=== PATIENT | female | born 1945 | race Caucasian/White ===

== ENCOUNTER 2017-05-03 16:58 | Emergency (ER) | payer MEDICARE, OTHER ==
[~2017-05-03] VITALS: Ht 170.2 cm; Wt 74.5 kg
[~2017-05-03 16:58] MED LIST: ACET-2766 PO; ANAS1TAB7 PO; ASPI-973 PO; CALC-140 PO; CARB15DR78 OP; CHOL100043 PO; CLOP75TA3 PO; CRAN300T PO; DIAZ5TAB3 PO; DULO60CA61 PO; ENAL10TA PO; GLUC-120 PO; KEN25CR EXT; LACT1CAP65 PO; METO50TA3 PO; OMEG500C PO; OXYC10TA8 PO; PIRO20CA2 PO; POLY17PO2 PO; RANI150T11 PO; SENN1TAB90 PO; SIMV40TA5 PO; YEAS680T PO; iron PO; stool softner PO
[2017-05-03 17:06] VITALS: BP 102/63; PULSE 80; RESP 16; O2SAT 97
[2017-05-03] MEDS ORDERED: Ondansetron 2 mg/mL 2 mL Inj IVPUSH PRN (17:10)
[2017-05-03] MEDS ORDERED: Iohexol 300 mg/mL 30 mL Inj PO ONE (17:10)
--- NOTE | 2017-05-03 17:11 | ED.REPORT ---
HPI-Abd Pain F 40 and Over Date of Service May 03, 2017 ED Provider: Dr. Kemar Galaviz D.O. The patient is a 72 year old female with a history of NC, breast cancer, diverticulitis/pancreatitis, C.Diff, and a recently diagnosed possible stomach ulcer who presents to the ED accompanied by her with epigastric abdominal pain onset four days ago. The pain is "achy" in nature, with radiation to the periumbilical region and RUQ. Associated symptoms include back pain, abdominal distention, nausea, vomiting, and diarrhea. The patient denies hematemesis, dysuria, urinary frequency, or other symptoms. The patient was seen by her PCP a couple of months ago with similar symptoms and was placed on antibiotics for diverticulitis/pancreatitis. The patient then got C.Diff which resolved approximately three weeks ago. She was then diagnosed with a possible stomach ulcer and is currently undergoing a workup with for this while being treated presumptively with PPIs. Nursing Notes Stated Complaint: STOMACH AND PACK PAIN,STOMACH BLOATING,DRY HEAVES Chief Complaint: Female Abdominal Pain Nursing Notes Reviewed: Yes Allergies: Coded Allergies: procaine (Verified Allergy, Severe, 09/19/09) Uncoded Allergies: NOVACAINE (Allergy, Unknown, 10/28/05) PROCAINE HCL (Generic Allergy) (Allergy, Unknown, Y, 10/28/05) Scheduled ([iron]) 65 MG PO DAILY ([stool softner]) 50 MG PO BID Anastrozole (Anastrozole) 1 Mg Tablet 1 MG PO DAILY Aspirin (Aspirin) 81 Mg Tablet 81 MG PO DAILY Calcium Carbonate/Vitamin D3 (Calcium + Vitamin D Tablet) 1 Each Tablet 1 EACH PO BID Carboxymethylcellulose Sodium (Lubricant Eye Drops) 15 Ml Drops 15 ML OP BID Cholecalciferol (Vitamin D3) (Vitamin D) 1,000 Unit Tablet 2,000 UNIT PO DAILY Clopidogrel Bisulfate (Plavix) 75 Mg Tablet 75 MG PO DAILY Cranberry Extract (Cranberry) 300 Mg Tablet 300 MG PO DAILY Duloxetine (Duloxetine) 60 Mg Capsule. 60 MG PO DAILY Enalapril Maleate (Enalapril Maleate) 10 Mg Tablet 10 MG PO DAILY Gluc 2Kcl/Chondr/Rosa Hy/Hy AC (Glucosamine & Chondroitin Cap) 1 Each Capsule 1 EACH PO DAILY Lactobacillus Acidophilus (Probiotic) 1 Each Capsule 1 EACH PO DAILY Metoprolol Tartrate (Metoprolol Tartrate) 50 Mg Tablet 50 MG PO BID Starke-3 Fatty Acids (Fish Oil) 500 Mg Capsule.dr 1,000 MG PO DAILY Piroxicam (Piroxicam) 20 Mg Capsule 20 MG PO DAILY Sennosides/Docusate Sodium (Senna-Docusate Sodium Tablet) 1 Each Tablet 1 EACH PO DAILY Simvastatin (Simvastatin) 40 Mg Tablet 40 MG PO HS Triamcinolone Acet (Triamcinolone Acetonide Cream) 1 Applic/0.25 Gm Cr 1 APPLIC EXT BID Yeast (Landaverde's Yeast) 680 Mg Tablet 680 MG PO DAILY Scheduled PRN Acetaminophen (Tylenol Arthritis) 650 Mg Tablet.er 650 MG PO DAILY PRN PRN For Pain Diazepam (Diazepam) 5 Mg Tablet 5 MG PO HS PRN PRN For Anxiety Ondansetron ODT (Zofran ODT) 4 Mg Tablet 4 MG PO Q4H PRN PRN For Nausea Polyethylene Glycol 3350 (Polyethylene Glycol 3350) 17 Gm Powd.pack 17 GM PO BID PRN PRN For Constipation Ranitidine (Zantac) 150 Mg Tablet 150 MG PO DAILY PRN PRN allergy oxyCODONE (oxyCODONE) 10 Mg Tablet 10 MG PO Q6H PRN PRN For Pain General Time Seen by MD: 17:10 Chief Complaint Abdominal pain Hx Obtained From: Patient, Spouse Arrived By: Walk-in Sudden in Onset?: No Onset Occurred: 4 days ago Symptom Duration: Since onset Location: : Epigastric Radiation: : RUQ (and Periumbilical) Severity: Current: Moderate Severity: Maximum: Moderate Pertinent Negative: Relieved by nothing Context Related History: Reports: Diverticulosis, Pancreatitis Recent Healthcare: Recent doctor visit Past Medical History Past Medical History Treated 1 cm low grade infiltrating ductal carcinoma of the right breast s/p lumpectomy C. Diff [place] Diverticulitis/Pancreatitis Stomach ulcer Past Surgical History Breast lumpectomy and sentinel lymph node biopsy Cardiac stents x2 Smoking History Unknown if Ever Smoker Social History Other Social History: Ambulatory Status Independent Review of Systems + Abdominal distention Constitutional: Denies: Fever Respiratory: Denies: Non-productive cough, Shortness of breath GI: Reports: Abdominal pain, Diarrhea, Nausea, Vomiting, Denies: Hematemesis Female: Denies: Dysuria, Urinary frequency Musculoskeletal: Reports: Back pain Complete sys rev & neg: except as marked. Physical Exam Physical Exam Notes: Vital Signs Vital Signs (First) Date Time Temp Pulse Resp B/P Pulse Ox O2 Delivery O2 Flow Rate FiO2 05/03/17 17:06 36.8 80 16 102/63 97 Room Air Initial VS: Reviewed Head / Eyes: Atraumatic, Normocephalic ENT: Conjunctiva normal, No scleral icterus Neck: Supple, Full range of motion Skin: Warm, Dry, No cyanosis Neurologic: Alert, Oriented, Nonfocal Psychiatric: Mood/affect normal, Behavior normal, Normal thought content General/Constitutional: Awake, Alert Respiratory / Chest: Breath sounds NL, Breath sounds = bilat, No respiratory distress Cardiovascular: Heart rate NL, Regular rhythm, Heart sounds NL Abdomen: Atraumatic, No guarding, No rebound Tenderness/Guarding/Rebound: Positive: Tender epigastric, Tender periumbilical Bowel Sounds / Distention: Positive: Distention mild Interpretation & Diagnostics URINE DIPSTICK: Bedside Urine Specific [place] * 1.010 Bedside Urine pH * 6 Bedside Urine Leukocyte Esterase * Trace Bedside Urine Nitrite * Negative Bedside Urine Protein * Negative Bedside Urine Glucose * Normal Bedside Urine Ketones * Negative Bedside Urine Urobilinogen * Normal Bedside Urine Bilirubin * Negative Bedside Urine Occult Blood * Negative Urine to Lab * Yes Lab Results Interpretation Result Diagram: 05/03/17 1740 05/03/17 1740 Test 05/03/17 17:40 05/03/17 18:00 White Blood Count 11.1th/mm3 (3.8-10.1) Red Blood Count 4.35mil/mm3 (3.90-5.20) Hemoglobin 11.4g/dL (12.0-15.6) Hematocrit 36.8% (35.0-46.0) Mean Corpuscular Volume 84.6fL (81-100) Mean Corpuscular Hemoglobin 26.2pg (27.0-35.0) Mean Corpuscular Hemoglobin Concent 31.0% (32.0-37.0) Red Cell Distribution Width 13.5% (12.3-15.4) Platelet Count 563bil/L (150-400) Neutrophils (%) (Auto) 65.8% (40-74) Lymphocytes (%) (Auto) 20.8% (14-46) Monocytes (%) (Auto) 11.7% (4-12) Eosinophils (%) (Auto) 1.0% (0-5) Basophils (%) (Auto) 0.5% (0-3) Sodium Level 137mEq/L (134-144) Potassium Level 2.9mEq/L (3.5-5.2) Chloride Level 100mEq/L (97-108) Carbon Dioxide Level 20mmol/L (18-29) Blood Urea Nitrogen 14mg/dL (8-27) Creatinine 1.00mg/dL (0.57-1.00) Estimat Glomerular Filtration Rate 78mL/min (>59) Glucose Level 112mg/dL (60-99) Lactic Acid Level 0.9mmol/L (0.4-2.0) Calcium Level 9.7mg/dL (8.5-10.1) Magnesium Level 1.8mg/dL (1.6-2.6) Total Bilirubin 0.2mg/dL (0.0-1.2) Aspartate Amino Transf (AST/SGOT) 18U/L (0-50) Alanine Aminotransferase (ALT/SGPT) 18U/L (0-32) Alkaline Phosphatase 147U/L (25-165) Troponin T < 0.010ug/L (0.0-0.011) Total Protein 7.9g/dL (6.4-8.4) Albumin 3.6g/dL (3.4-5.0) Lipase 57U/L (13-60) Urine Color Yellow (YELLOW) Urine Appearance Clear (CLEAR,HAZY) Urine pH 7.0 (5.0-8.0) Urine Specific [place] 1.015 (1.003-1.035) Urine Protein 30mg/dL (NEG,TRACE) Urine Glucose (UA) Negativemg/dL (NEGATIVE) Urine Ketones Negativemg/dL (NEGATIVE) Urine Occult Blood Negative (NEGATIVE) Urine Nitrite Negative (NEGATIVE) Urine Bilirubin Negative (NEGATIVE) Urine Urobilinogen Normalmg/dL (NORMAL) Urine Leukocyte Esterase Small (NEGATIVE) Urine RBC 0-2/hpf (0-2) Urine WBC 6-10/hpf (0-5) Urine Epithelial Cells Moderate/hpf (NONE-MOD) Urine Crystals None seen (NONE SEEN) Urine Bacteria None/hpf (NONE-FEW) Urine Hyaline Casts None/lpf (NONE) Urine Granular Casts None seen (NONE SEEN) Urine Waxy Casts None seen (NONE SEEN) Urine Red Blood Cell Casts None seen (NONE SEEN) Urine White Blood Cell Casts None seen (NONE SEEN) Urine Mucus None seen (None Seen) Urine Trichomonas None seen (NONE SEEN) Urine Yeast None (NONE SEEN) Urinalysis Comment None Urine Culture Reflexed Indicated ECG Interpretation ECG Interpretation: Sinus rhythm rate 74 Time: 17:39 Interpreted by: ED physician CT Abd / Pelvis Interpretation IMPRESSION: 1. Fatty infiltration of the liver. 2. 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 A this patient be complaining of mesenteric ischemia. 3. No evidence for inflammation in the region of the stomach kidneys gallbladder or pancreas. No adenopathy or mass. Dictated by: Charbel Hooper M.D. on 05/03/2017 at 19:27 Study type: Abdominal CT IV contrast, Abdom CT oral contrast Interpretation / Wet Read by: Interpret - Radiologist Re-Eval/Medical Decision Med Decision/Clinical Course 72-year-old female with a history of recent diverticulitis, pancreatitis, C. difficile infection, and history of gastric ulcer as well as coronary artery disease with 2 stents presents with epigastric abdominal pain and bloating that has been intermittent over the past week and worsening. 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 I discussed these findings with Dr. Horowitz, our general surgeon who notes that without symptoms of weight loss and pain with eating mesenteric ischemia is not likely the acute or chronic diagnosis. Patient is pain-free after 2 doses of Dilaudid 0.5 mg. I discussed with her the symptoms related to this diagnosis of mesenteric ischemia. I advised that she should likely have a consultation with vascular surgery in follow-up and this could be arranged through her PCP. Her urine was significant for pyuria but without symptoms I hesitated to treat her with antibiotics until the culture returns given her recent C. difficile infection. She will be contacted if this returns positive for infection. Her potassium was low from the vomiting and was replaced. She was feeling much better and was discharged with Zofran and that could be taken for vomiting should this recur. I believe that her elevated white blood cell count could be explained by vomiting or recent C. difficile infection as I do not see evidence of significant infection or SIRS criteria. Patient had a normal formed stool prior to coming to the ER. Source of Hx: Old records Re-Evaluation/Progress #1: Time of Eval: 20:34 Patient Status: Condition improved Re-Evaluation/Progress Note: The patient's pain and nausea have resolved. Discussed with patient lab and CT results with plan for surgery consult. Re-Evaluation/Progress #2: Time of Eval: 21:03 Patient Status: Condition improved Re-Evaluation/Progress Note: Patient has not been losing weight or experiencing pain with eating. Discussed with patient CT and lab results, surgery consult, diagnosis, and plan for discharge. Follow-up and return to the ER instructions given. Patient agrees with plan for care and all questions were addressed. Consultation : Referral / Consult Name: Mikey Horowitz MD Call Returned at: 20:55 Printed Circuit Board Drafter: Agrees with eval, Agrees with plan Note: Recommends neurovascular surgery consult if patient has symptoms of ongoing weight loss or pain with eating. Otherwise recommends discharge with outpatient follow-up. Counseled Regarding: Diagnosis, Lab results, Need for follow-up, When/why to return to ED Discharge & Departure Primary Impression: Epigastric abdominal pain Additional Impressions: Nausea & vomiting Vomiting type: unspecified Vomiting Intractability: non-intractable Qualified Code: R11.2 - Nausea with vomiting, unspecified Hypokalemia SMA stenosis Celiac artery stenosis Disposition: Home Discharge Condition All VS Reviewed: Yes Condition: Improved Patient Instructions: Acute Abdominal Pain (ED) Additional Instructions: Thank you for entrusting us with your care. Your labs were reassuring for any serious illness. Your CT scan showed possible mesenteric ischemia but her symptoms are not consistent with this. There were some abnormalities with your urine analysis and will culture your urine and the results will become available in the next couple of days. Take Zofran as prescribed for nausea. Call your primary care provider on Friday for a follow-up appointment next week. Speak with them about consulting a vascular surgeon. Also call Dr. Jack for a follow-up appointment with gastroenterology and EGD that was discussed previously. Your symptoms could be related to an ulcer. Return to the ER with any new or worsening symptoms. Referrals: Eileen Narvaez PA-C (PCP) Mikey Jack MD Scribe Attestation Portions of this note were transcribed by Dipika Nielson. I, Dr. Galaviz, personally performed the history, physical exam, and medical decision-making; I reviewed and confirmed the accuracy of the information in the transcribed note. Signed by: Jason Pham, 05/03/2017, 23:05 copies to: Eileen Narvaez PA-C; Mikey Jack MD, Gary R DO May 03, 2017 17:10 DIPIKA NIELSON May 03, 2017 17:29
[2017-05-03] MEDS ORDERED: 0.9% Sodium Chloride 1,000 ML IV ONE (17:31)
[2017-05-03] MEDS ORDERED: HYDROmorphone 0.5 mg/0.5 mL iSecure Syringe IVPUSH PRN (17:35)
[2017-05-03 17:53] LABS: BASOPHILS % (AUTO) 0.5 % (0-3); MONOCYTES % (AUTO) 11.7 % (4-12); Mean Corpuscular Hemoglobin 26.2 pg (27.0-35.0); Mean Corpuscular Volume 84.6 fL (81-100); NEUTROPHILS % (AUTO) 65.8 % (40-74); Platelet Count 563 bil/L (150-400)
[2017-05-03 18:19] LABS: TROPONIN T < 0.010 ug/L (0.0-0.011)
[2017-05-03 18:21] LABS: APPEARANCE,URINE CLEAR (CLEAR,HAZY); COLOR,URINE YELLOW (YELLOW)
[2017-05-03 18:22] LABS: OCCULT BLOOD,URINE NEGATIVE (NEGATIVE); UROBILINOGEN,URINE NORMAL (NORMAL)
[2017-05-03 18:25] LABS: Lipase 57 U/L (13-60); Magnesium 1.8 mg/dL (1.6-2.6)
--- NOTE | 2017-05-03 19:42 | DRSVH ---
PROCEDURE: CT ABDOMEN AND PELVIS WITH CONTRAST ([id number]) INDICATIONS: abd pain TECHNIQUE: After the administration of oral and intravenous contrast, 5 mm thick sections acquired from the diap hragms to the symphysis. 5 mm thick coronal and sagittal reformats were performed. For radiation do se reduction, the following was used: automated exposure control, adjustment of mA and/or kV accordi ng to patient size. COMPARISON: [facility], [place], BONE SCAN WHOLE BODY, 01/25/2016, 13:38. [facility], CT, CHEST/ABD/PELVIS W/CON (PNL), 03/18/2014, 9:15. [facility], CT, CT ABD PELVIS W CON, 03/18/2017, 14:01. FINDINGS: Image quality: Excellent. ABDOMEN: Lung bases: Lung bases are clear. Heart size is normal. Solid organs: Liver and spleen are normal in size and enhancement. Diffuse fatty infiltration is pre sent. Gallbladder is within normal limits.. Biliary system is non-dilated. Pancreas enhances kuldeep lly. 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 No adrenal nodules, the mild plump appearan ce of the left adrenal remains unchanged since old CTs.. Kidneys are normal in size and enhancement, without hydronephrosis. Peritoneum and bowel: Stomach, small bowel, and colon loops are normal in caliber and wall thickness . No beba-gastric inflammation is seen. No free fluid or air. Nodes and vessels: No retroperitoneal or mesenteric adenopathy. Aorta and inferior vena cava are no rmal in caliber. Atherosclerotic calcifications are present. Postoperative day very tight stenosis at the origin of the superior mesenteric artery and probably a significant stenosis of the origin of th e celiac. The MISSY is patent. Miscellaneous: No ventral hernias. PELVIS: Genitourinary: Bladder wall thickness is normal. No abnormality of the uterus and ovaries by size. Miscellaneous: No inguinal hernias or adenopathy. Bones: There is sclerotic changes scattered throughout the vertebrae probably degenerative. They're u nchanged since the previous CT. It is more prominent than on the CT of 03/18/14 but thought to be a si milar pattern. In addition bone scannin 2016 was not considered abnormal. No vertebral body compressi on fractures. IMPRESSION: 1. Fatty infiltration of the liver. 2. 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 A this patient be complaining of mesenteric ischemia. 3. No evidence for inflammation in the region of the stomach kidneys gallbladder or pancreas. No maranda opathy or mass. Dictated by: Charbel Hooper M.D. on 05/03/2017 at 19:27 Approved by: Charbel Hooper M.D. on 05/03/2017 at 19:41
[2017-05-03 20:55] VITALS: BP 112/66; PULSE 80; RESP 17; O2SAT 98
[2017-05-03] MEDS ORDERED: Potassium Chloride 20 mEq SR Tablet PO ONE (21:10)
[2017-05-03] MEDS ORDERED: ONDA4TAB9 PO (21:34)
[2017-05-10] MEDS ORDERED: Propofol 10 mg/mL 20 mL Inj ONE (10:58)
--- NOTE | 2017-05-14 15:02 | PATH ---
SURGICAL PATHOLOGY Attending Physician:Jeaneth Saul MD CASE STATUS: Signed Out PATIENT NAME: EARLINE FLAHERTY PID: [id number] : 1945 DATE COLLECTED:05/10/2017 00:00 SPECIMEN: 1: Gastric, Biopsy 2: Gastric, Biopsy CLINICAL HISTORY: 1. GASTRIC ULCER BX 2. RANDOM GASTRIC BX FINAL DIAGNOSIS: 1.GASTRIC ULCER BIOPSY: SUPERFICIAL FRAGMENTS OF ANTRAL MUCOSA WITH ASSOCIATED INFLAMMATORY DEBRIS, BUT NO DEFINITE MUCOSAL ULCERATION NOTED. Immunohistochemistry for Helicobacter pending, to be reported by addendum. Negative for intestinal metaplasia. Negative for dysplasia and malignancy. 2.RANDOM GASTRIC BIOPSIES: MODERATE CHRONIC GASTRITIS INVOLVING ANTRAL MUCOSA AND MILD CHRONIC GASTRITIS INVOLVING FUNDIC MUCOSA. Immunohistochemistry for Helicobacter pending, to be reported by addendum. Negative for intestinal metaplasia. Negative for dysplasia and malignancy. ICD10 K29.70 GROSS DESCRIPTION: The specimen is received in two formalin filled containers labeled with the patient's name. 1). The specimen is sublabeled "gastric ulcer" and consists of a 0.1 x 0.1 x 0.1 CM portion of tissue which is entirely submitted in cassette 1A. 2). The specimen is sublabeled "random gastric" and consists of 3 portions of tissue which aggregate to 0.3 x 0.2 x 0.2 CM. The specimen is entirely submitted in cassette 2A. 05/12/2017 [facility] MICRO DESCRIPTION: See diagnosis. ICD-9 CODES: CPT CODES: 1: 78871, 37005 2: 72298, 49843 PROCEDURE/ADDENDA: Immunohistochemistry SPI Interpretation {Not Entered} Results-Comments 2.GASTRIC BIOPSY: AN IMMUNOSTAIN FOR HELICOBACTER ORGANISMS IS NEGATIVE. This test was developed and its performance characteristics determined by [employer]. It has not been cleared or approved by the U. S. Food and Drug Administration. The FDA has determined that such clearance or approval is not necessary. This test is used for clinical purposes. It should not be regarded as investigational or for research. Electronically Signed Out León Lantigua MD Electronically Signed Out Jorge Juarez MD [facility] [place] [address] Technical component performed at [facility], [address], [place], [address]
== END 2017-05-03 21:44 | disposition home or self-care (01) ==
LOC: SED 16:58
DX: R10.13 Epigastric pain (principal); R11.2 Nausea with vomiting, unspecified; I77.4 Celiac artery compression syndrome; K55.1 Chronic vascular disorders of intestine; E87.6 Hypokalemia; M54.9 Dorsalgia, unspecified; I25.2 Old myocardial infarction; Z95.5 Presence of coronary angioplasty implant and graft; Z79.82 Long term (current) use of aspirin; Z88.8 Allergy status to other drugs, medicaments and biological substances
CPT/HCPCS: 36415; 74177; 80053; 81000; 83605; 83690; 83735; 84484; 85025; 87086; 93005; 96361; 96374; 96375; 99285; J1170; J2405; J7030; Q9967

== ENCOUNTER 2017-05-08 10:42 | Inpatient (IN) | payer MEDICARE, OTHER ==
[~2017-05-08] VITALS: Ht 170.2 cm; Wt 70.0 kg
[2017-05-08] VITALS (8 sets, daily range): BP systolic 97–115; BP diastolic 40–63; PULSE 72–90; RESP 10–16; O2SAT 94–98
[~2017-05-08 10:42] MED LIST changes: +ONDA4TAB9 PO
--- NOTE | 2017-05-08 10:55 | ED.REPORT ---
HPI-Abd Pain F 40 and Over Date of Service May 08, 2017 ED Provider: Dr. Mayer History of Present Illness: appointment this am to schedule upper GI, got sick, vomiting, pain in stomach and back. pain is going down now a 5, was a 7 earlier. having this issue for [address] EKG and a scan on Friday. taking oxycodone for the pain. primary is chi, GI is [facility] Nursing Notes Stated Complaint: EVAL PE/ABDOMINAL PAIN Chief Complaint: Female Abdominal Pain Nursing Notes Reviewed: Yes Allergies: Coded Allergies: procaine (Verified Adverse Reaction, Intermediate, nausea or diarrhea, ) Scheduled Aripiprazole (Aripiprazole) 2 Mg Tablet 2 MG PO DAILY Aspirin (Aspirin) 81 Mg Tablet 81 MG PO DAILY Calcium Carbonate/Vitamin D3 (Calcium + Vitamin D Tablet) 1 Each Tablet 1 EACH PO BID Cholecalciferol (Vitamin D3) (Vitamin D) 1,000 Unit Tablet 2,000 UNIT PO DAILY Clopidogrel Bisulfate (Plavix) 75 Mg Tablet 75 MG PO DAILY Cranberry Extract (Cranberry) 300 Mg Tablet 300 MG PO DAILY Docusate Sodium (Colace) 100 Mg Capsule 200 MG PO HS Duloxetine (Duloxetine) 60 Mg Capsule. 60 MG PO DAILY Enalapril Maleate (Enalapril Maleate) 10 Mg Tablet 5 MG PO DAILY Ferrous Sulfate (Iron) 325 Mg Capsule.er 325 MG PO DAILY Gluc 2Kcl/Chondr/Rosa Hy/Hy AC (Glucosamine & Chondroitin Cap) 1 Each Capsule 1 EACH PO BID Lactobacillus Acidophilus (Probiotic) 1 Each Capsule 1 EACH PO DAILY Metoprolol Tartrate (Metoprolol Tartrate) 50 Mg Tablet 50 MG PO BID Fries-3 Fatty Acids (Fish Oil) 500 Mg Capsule. 1,000 MG PO DAILY Omeprazole (Omeprazole) 20 Mg Capsule. 20 MG PO DAILY Sennosides (Senna) 8.6 Mg Tablet 8.6 MG PO HS Simvastatin (Simvastatin) 40 Mg Tablet 40 MG PO HS Sucralfate (Sucralfate) 1 Gm Tablet 1 GM PO TID Triamcinolone Acet (Triamcinolone Acetonide Cream) 1 Applic/0.25 Gm Cr 1 APPLIC EXT WEEKLY Yeast (Landaverde's Yeast) 680 Mg Tablet 680 MG PO DAILY Scheduled PRN Acetaminophen (Acetaminophen) 500 Mg Capsule 500 MG PO Q6H PRN PRN For Pain Diazepam (Diazepam) 5 Mg Tablet 5 MG PO HS PRN PRN For Anxiety oxyCODONE (oxyCODONE) 10 Mg Tablet 10 MG PO Q6H PRN PRN For Pain General Time Seen by MD: 10:54 Chief Complaint Abdominal pain Hx Obtained From: Patient Arrived By: Walk-in Sudden in Onset?: No Onset Occurred: More than a week ago... (6 months) Symptom Duration: Since onset Location: : Abdomen upper Radiation: : Does not radiate Severity: Current: Pain level 5 out of 10 Severity: Maximum: Pain level 7 out of 10 Recent Healthcare: Recent doctor visit Similar Sx Previous: Yes Past Medical History Past Medical History Treated 1 cm low grade infiltrating ductal carcinoma of the right breast s/p lumpectomy 2010 C. Diff [place] Diverticulitis/Pancreatitis Stomach ulcer Past Surgical History Breast lumpectomy and sentinel lymph node biopsy Cardiac stents x2 Smoking History Former Smoker (quit in 2010), Unknown if Ever Smoker Social History Alcohol Use: Denies alcohol use Drug Use: Denies drug use Other Social History: Occupation lives with 1 story house, 5th wheel trailer 05/08/2017 Ambulatory Status Independent Review of Systems Basic Review of Systems Eyes: Vision NL, No discharge Neurologic: NL mental status, No weakness, No numbness Psychiatric: Normal thought content GI: Reports: Abdominal pain, Nausea, Vomiting Complete sys rev & neg: except as marked. Physical Exam Vital Signs Vital Signs (First) Date Time Temp Pulse Resp B/P Pulse Ox O2 Delivery O2 Flow Rate FiO2 05/08/17 10:47 36.5 72 10 107/56 97 Room Air Initial VS: Reviewed, Vital signs normal Head / Eyes: Atraumatic, Normocephalic, PERRL ENT: Mucous membranes moist, Conjunctiva normal, No scleral icterus Neck: Supple, Non-tender, Full range of motion Lymphatic: No lymphadenopathy Extremities: Vascular intact, Neuro intact, No swelling, No tenderness Skin: Warm, Dry, No cyanosis Neurologic: Alert, Oriented, Nonfocal Psychiatric: Mood/affect normal, Behavior normal, Normal thought content General/Constitutional: Awake, Alert, No acute distress, Well appearing, Well developed, Well hydrated Respiratory / Chest: Atraumatic, Breath sounds NL, Breath sounds = bilat, No respiratory distress Cardiovascular: Heart rate NL, Regular rhythm, Heart sounds NL Abdomen: Atraumatic, Soft Tenderness/Guarding/Rebound: Positive: Tender diffuse Interpretation & Diagnostics Lab Results Interpretation Result Diagram: 05/08/17 1110 05/08/17 1110 Test 05/08/17 11:10 05/08/17 13:00 White Blood Count 17.5th/mm3 (3.8-10.1) Red Blood Count 4.60mil/mm3 (3.90-5.20) Hemoglobin 12.0g/dL (12.0-15.6) Hematocrit 38.9% (35.0-46.0) Mean Corpuscular Volume 84.6fL (81-100) Mean Corpuscular Hemoglobin 26.1pg (27.0-35.0) Mean Corpuscular Hemoglobin Concent 30.8% (32.0-37.0) Red Cell Distribution Width 13.5% (12.3-15.4) Platelet Count 602bil/L (150-400) Neutrophils (%) (Auto) 80.5% (40-74) Lymphocytes (%) (Auto) 10.1% (14-46) Monocytes (%) (Auto) 8.7% (4-12) Eosinophils (%) (Auto) 0.2% (0-5) Basophils (%) (Auto) 0.3% (0-3) Sodium Level 137mEq/L (134-144) Potassium Level 3.3mEq/L (3.5-5.2) Chloride Level 99mEq/L (97-108) Carbon Dioxide Level 24mmol/L (18-29) Blood Urea Nitrogen 12mg/dL (8-27) Creatinine 1.15mg/dL (0.57-1.00) Estimat Glomerular Filtration Rate 66mL/min (>59) Glucose Level 128mg/dL (60-99) Lactic Acid Level 1.0mmol/L (0.4-2.0) Calcium Level 9.8mg/dL (8.5-10.1) Total Bilirubin 0.3mg/dL (0.0-1.2) Aspartate Amino Transf (AST/SGOT) 18U/L (0-50) Alanine Aminotransferase (ALT/SGPT) 18U/L (0-32) Alkaline Phosphatase 143U/L (25-165) Troponin T 0.010ug/L (0.0-0.011) Total Protein 8.2g/dL (6.4-8.4) Albumin 3.7g/dL (3.4-5.0) Lipase 41U/L (13-60) Hold Urine Received (Received) ECG Interpretation ECG Interpretation: Normal Sinus rhtyhm. Rate 71. Time: 11:31 Interpreted by: ED physician Re-Eval/Medical Decision Med Decision/Clinical Course Care of patient turned over to DR. Mayer Source of Hx: Old records Counseled Regarding: Diagnosis, Lab results, Need for admission Discharge & Departure Primary Impression: Nausea & vomiting Vomiting type: unspecified Additional Impression: SMA stenosis Disposition: ADMITTED TO HOSPITAL Discharge Condition All VS Reviewed: Yes Referrals: Eileen Narvaez PA-C (PCP) EDSupervising Provider for APC: Adalberto Mayer MD copies to: Eileen Narvaez PA-C, Sue ARNP May 08, 2017 10:55 Cyrus Pierre May 08, 2017 11:23
[2017-05-08] MEDS ORDERED: HYDROmorphone 0.5 mg/0.5 mL iSecure Syringe IVPUSH PRN (11:35)
[2017-05-08] MEDS ORDERED: Ondansetron 2 mg/mL 2 mL Inj IVPUSH ONE (11:35)
[2017-05-08 11:37] LABS: BASOPHILS % (AUTO) 0.3 % (0-3); EOSINOPHILS % (AUTO) 0.2 % (0-5); MONOCYTES % (AUTO) 8.7 % (4-12); Mean Corpuscular Hemoglobin 26.1 pg (27.0-35.0); Mean Corpuscular Volume 84.6 fL (81-100); NEUTROPHILS % (AUTO) 80.5 % (40-74); Platelet Count 602 bil/L (150-400)
[2017-05-08 11:58] LABS: TROPONIN T 0.01 ug/L (0.0-0.011)
--- NOTE | 2017-05-08 12:53 | DRSVH ---
PROCEDURE: MRA ANGIOGRAM ABDOMEN ([id number]) INDICATIONS: Abd pain, vascular dz on CT TECHNIQUE: Precontrast axial, coronal, and sagittal TruFISP acquired through the abdomen and pelvis. Dynamic co garcía MRA using Care Bolus timing of the abdomen and pelvis during the administration of contrast, wi th 3-dimensional maximum intensity projection (MIP) reformats performed. COMPARISON: [facility], CT, CT ABD PELVIS W CON, 05/03/2017, 19:18. FINDINGS: Image quality: Excellent. 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 High-grade, josr r-complete occlusion of the origin of the superior mesenteric artery is noted. Flow is noted in the c eliac artery the superior mesenteric artery distal to the high grade origin stenoses. The inferior me senteric artery is not identified. Aorta: Aorta is normal in caliber and enhancement. Mild, scattered sclerotic irregularity noted in t he abdominal aorta without measurable stenosis. Renal arteries: Renal arteries all appear patent. Extravascular soft tissues: Visualized solid organs are normal in size on limited pre-contrast image s. Bowel loops are normal in caliber. No free fluid. No retroperitoneal or mesenteric adenopathy b y size criteria. No ventral hernias. Bones: Marrow is normal in overall signal. IMPRESSION: 1. 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 2. 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 Dictated by: Zora Fortune MD, PhD on 05/08/2017 at 12:36 Approved by: Zora Fortune MD, PhD on 05/08/2017 at 12:51
[2017-05-08] MEDS ORDERED: ARIP2TAB11 PO (13:30)
[2017-05-08] MEDS ORDERED: SUCR1TAB PO (13:30)
[2017-05-08] MEDS ORDERED: OMEP20CA11 PO (13:35)
[2017-05-08] MEDS ORDERED: FERR325C PO (13:35)
--- NOTE | 2017-05-08 13:36 | DRSVH ---
PROCEDURE: CT ANGIO CHEST PULMONARY EMBOLISM ([id number]) INDICATIONS: 72 year-old female with shortness of breath and vomiting. TECHNIQUE: After the administration of intravenous contrast, 2 mm thick sections acquired from the pulmonary api shey to the posterior costophrenic angles. 3-dimensional maximum intensity projection (MIP) coronal a nd sagittal reformats were then acquired through the thorax. For radiation dose reduction, the follo wing was used: automated exposure control, adjustment of mA and/or kV according to patient size. COMPARISON: [facility], CT, CT ABD PELVIS W CON, 05/03/2017, 19:18. FINDINGS: Image quality: Excellent. Pulmonary arteries: Pulmonary arteries are normal in size, and demonstrate no intraluminal filling d efects to suggest central pulmonary embolism. Lungs and pleura: There is centrilobular emphysema. Lungs are clear, except for scattered antral med ial pulmonary scarring. No pleural effusions or pneumothorax. Central and peripheral airways are pa tent. Mediastinum: Heart size is normal, without pericardial effusion. No mediastinal or hilar adenopathy . Thoracic aorta is normal in caliber and enhancement. Esophagus is normal in caliber, without hiat al hernia. Bones and chest wall: Patient is status post right breast lumpectomy and axillary lymph node dissect ion. No suspicious bony lesions. Ribs and thoracic spine appear intact throughout. Thyroid gland is normal in size, with 1.7 x 1.0 cm anterior left thyroid hypodense lesion. No axillary or supraclavi cular adenopathy. Abdomen: Visualized upper abdominal solid organs appear normal in the early arterial phase of enhanc ement. 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 IMPRESSION: 1. No evidence for central pulmonary embolism. 2. Background centrilobular emphysema. 3. 1.7 x 1.0 cm anterior left thyroid hypodense lesion. Consider further evaluation with thyroid ultr asound when clinically feasible. 4. 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 Dictated by: Daniel Ro M.D. on 05/08/2017 at 12:23 Approved by: Daniel Ro M.D. on 05/08/2017 at 12:35
[2017-05-08] MEDS ORDERED: ACET500C49 PO (13:43)
[2017-05-08] MEDS ORDERED: SENN-133 PO (13:46)
[2017-05-08] MEDS ORDERED: DOCU-41 PO (13:46)
--- NOTE | 2017-05-08 14:18 | NUR ---
Admit nurse note Admission assessment completed in the ER at pt. bedside. Pt. states her pain is "way down" to 1-2/10 since they gave her pain meds here. She is still slightly sleepy from the ativan but is alert and oriented enough to answer questions appropriately. Allergy verified and sticker placed on nameband. Med history obtained from PCP list and erx, as well as pt report. Pt. c/o n/v x 3 days so that she hasn't kept down her regular meds today. Pt. has hx R breast cancer with lymph node removal. IV and BP cuff are on the Left arm at present. Pt. states she uses a walker for support at home, but has never fallen. She is oriented to room, call fuentes and fall precautions. Advance directives are on file, is noted as DPOA. Pt. states she is dyslexic and would best receive instruction verbally. Report is given to Misty Dennison.
[2017-05-08] MEDS ORDERED: Ondansetron 2 mg/mL 2 mL Inj IVPUSH PRN (14:20)
[2017-05-08] MEDS ORDERED: HYDROmorphone 1 mg/mL Inj IVPUSH PRN (14:40)
[2017-05-08] MEDS ORDERED: 0.9% Sodium Chloride 1,000 ML IV ONE (14:55)
[2017-05-08 15:13] LABS: APPEARANCE,URINE HAZY (CLEAR,HAZY); COLOR,URINE STRAW (YELLOW)
[2017-05-08 15:14] LABS: OCCULT BLOOD,URINE NEGATIVE (NEGATIVE); UROBILINOGEN,URINE NORMAL (NORMAL)
[2017-05-08] MEDS: Lactobacillus Rhamnosus 10 Bil Unit Capsule PO SCH (15:20)
--- NOTE | 2017-05-08 15:50 | PCM.HPMED ---
Subjective Date of Service May 08, 2017 Primary Provider: Admitting Physician: Primary Care Physician: Eileen Narvaez PA-C Attending Physician: Chief Complaint: Abdominal pain, diarrhea, labored breathing History of Present Illness: 71yo FM with hx of breat ca, hemorrhoids, HTN, CAD s/d7dorrsf 16yrs ago, [employer], on DAPT, sent by in GI clinic due to concern for PE. Pt was seen by today for diarrhea, abdominal pain. Pt happened to show dyspnea with labored breathing in the clinic, SpO2 noted 100% on RA. Concern was also for possible mesenteric ischemic based on previous CT result, recommended further GI in the hospital. As per GI , pt had presumed pancreatitis and diverticulitis but beginning of January, Patient was given antibiotics for 12 days for treatment of this. The patient's CT scan of the abdomen and pelvis that was done with contrast on 02/04/2017 shows no evidence of diverticulitis or pancreatitis. The patient's lipase is unknown. Lipase was 128 on 01/24/2017. Patient started having profuse diarrhea 3 weeks ago, was 5-6 times per day, nonbloody. If the patient is nothing by mouth, she still has diarrhea. Patient was positive for C. difficile at that time was given Flagyl for 10 days. As per pt, pt suffered from episode of nausea, vomiting for 6month, once every 3 -4days, pt felt nauseated 15-30min after she took medicine in the morning, pt also is afraid of eating as whatever she ate, made her nauseated, only tolerated Activia, soft diet. pt started taking omeprazole for 3mo, didn't think it helps this problems. Since pt had c.diff cleared, pt has had normal BM 1-2per day, regular, non-bloody, non-mucus. After patient eats, pt experienced diffuse abdominal pain, uncomfortableness, which prevents her from eating heavy , large meals. pt lost over 20lbs used to 178 6moago, now 154lbs.lost 8lbs in the past month. Patient visited ED 5days with similar complaints, CT abd showed critical stenosis of SMA, celiac axis, but labs were unremarkable, pt is in the process of getting appointment with vascular surgeon at [facility]. Patient has been on compliant to DAPT for 16yrs, no recent echo done, only does annual EKG, hasn't had any chest pain for long time. pt stated that today, pt was USOH, went to clinic, had similar episode of nausea , vomiting, which was followed by labored breathing, diaphoresis, but denied any SOB at baseline, cough, sputum, chest pain, MCCORD, orthopnea, PND, no rash, fever, chills, In ED, VS 95/45-107/56, BP usually runs low 100s per pt, HR72, RR14, afebrile, labs showed mild MINH, leukocytosis, lactate normal. CTPE negative for PE, MRA showed same findings of CT previously, critical stenosis in celiac axis, SMA Review of Systems: Pertinent positives as noted in history of present illness. All other systems were reviewed and are negative Allergies Coded Allergies: procaine (Verified Adverse Reaction, Intermediate, nausea or diarrhea, ) Home Medications As per visit 05/08/17 Abilify 2 mg tablet take 1 tablet by oral route every day Aspirin Low Dose 81 mg tablet,delayed release take 1 tablet by oral route every day Calcium 600 + Vit D 1 tablet by mouth 2 times daily Carafate 1 gram tablet take 1 tablet by oral route 3 times every day on an empty stomach 1 hour before meals and at bedtime cranberry extract 200 mg capsule take daily CYMBALTA CAP 60MG TAKE 1 CAPSULE DAILY enalapril maleate 10 mg tablet take 1 Tablet by oral route every day Fish Oil 100 mg-160 mg-1,000 mg capsule glucosamine-chondroitin 500 mg-400 mg capsule iron ER 325 mg (65 mg iron) capsule,extended release take 1 tablet daily metoprolol tartrate 50 mg tablet take 1 tablet by oral route 2 times every day with meals omeprazole 20 mg capsule,delayed release take 1 capsule by oral route every day before a meal oxycodone 10 mg tablet take 1 tablet by oral route every 4 - 6 hours pantoprazole 40 mg tablet,delayed release take 1 tablet by oral route every day Plavix 75 mg tablet take 1 tablet by oral route every day Probiotic 10 billion cell capsule take 1 cap by mouth daily simvastatin 40 mg tablet take 1 tablet by oral route every day in the evening sucralfate 1 gram tablet take 1 tablet by oral route 4 times every day on an empty stomach 1 hour before meals and at bedtime Vitamin D3 2,000 unit tablet take 1 tab by mouth twice daily Zantac 150 mg tablet take 1 tablet by oral route 2 times every day as needed PMH Chronic low back pain Benign hypertension chronic OM of mandible, remote, pt was on iv abx and hyperbaric O2 tx last time in 2006, has been stable w/o any chronic abx, but never cured. Slow transit constipation Iron deficiency anemia due to dietary causes Hyperlipidemia CAD, as above Surgical History 2Cappal tunnel syndrome ovarian cyst removal 2cataract surgery lumpectomy of breast CA in 2010 Family History no hx of CAD Social History Hx Alcohol Use: No Hx Substance Use: No Hx Tobacco Use: Yes (quit after dx of breast CA in 2010) Smoking Status: Former Smoker, Unknown if Ever Smoker Additional Information lives with Exam Vital Signs Vital Sign - Last Date Time Temp Pulse Resp B/P Pulse Ox O2 Delivery O2 Flow Rate FiO2 05/08/17 13:33 73 14 98/40 98 Room Air 05/08/17 10:47 36.5 Exam NAD, comfortably laying down on the bed no JVD, MMM, no LAD RRR, nl s1, s2 no mrg CTAB, no w,c S,ND,NT,normoactive BS+ warm, no edema, pulses 2/2 Lab and Diagnostics Result Diagram: 05/08/17 1110 05/08/17 1110 X-Rays, CTs and MRIs PROCEDURE: CT ANGIO CHEST PULMONARY EMBOLISM ([id number]) INDICATIONS: 72 year-old female with shortness of breath and vomiting. TECHNIQUE: After the administration of intravenous contrast, 2 mm thick sections acquired from the pulmonary apices to the posterior costophrenic angles. 3-dimensional maximum intensity projection (MIP) coronal and sagittal reformats were then acquired through the thorax. For radiation dose reduction, the following was used: automated exposure control, adjustment of mA and/or kV according to patient size. COMPARISON: [facility], CT, CT ABD PELVIS W CON, 05/03/2017, 19:18. FINDINGS: Image quality: Excellent. Pulmonary arteries: Pulmonary arteries are normal in size, and demonstrate no intraluminal filling defects to suggest central pulmonary embolism. Lungs and pleura: There is centrilobular emphysema. Lungs are clear, except for scattered antral medial pulmonary scarring. No pleural effusions or pneumothorax. Central and peripheral airways are patent. Mediastinum: Heart size is normal, without pericardial effusion. No mediastinal or hilar adenopathy. Thoracic aorta is normal in caliber and enhancement. Esophagus is normal in caliber, without hiatal hernia. Bones and chest wall: Patient is status post right breast lumpectomy and axillary lymph node dissection. No suspicious bony lesions. Ribs and thoracic spine appear intact throughout. Thyroid gland is normal in size, with 1.7 x 1.0 cm anterior left thyroid hypodense lesion. No axillary or supraclavicular adenopathy. Abdomen: Visualized upper abdominal solid organs appear normal in the early arterial phase of enhancement. 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 IMPRESSION: 1. No evidence for central pulmonary embolism. 2. Background centrilobular emphysema. 3. 1.7 x 1.0 cm anterior left thyroid hypodense lesion. Consider further evaluation with thyroid ultrasound when clinically feasible. 4. 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 Dictated by: Daniel Ro M.D. on 05/08/2017 at 12:23 Approved by: Daniel Ro M.D. on 05/08/2017 at 12:35 PROCEDURE: MRA ANGIOGRAM ABDOMEN ([id number]) INDICATIONS: Abd pain, vascular dz on CT TECHNIQUE: Precontrast axial, coronal, and sagittal TruFISP acquired through the abdomen and pelvis. Dynamic coronal MRA using Care Bolus timing of the abdomen and pelvis during the administration of contrast, with 3-dimensional maximum intensity projection (MIP) reformats performed. COMPARISON: [facility], CT, CT ABD PELVIS W CON, 05/03/2017, 19:18. FINDINGS: Image quality: Excellent. 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 Flow is noted in the celiac artery the superior mesenteric artery distal to the high grade origin stenoses. The inferior mesenteric artery is not identified. Aorta: Aorta is normal in caliber and enhancement. Mild, scattered sclerotic irregularity noted in the abdominal aorta without measurable stenosis. Renal arteries: Renal arteries all appear patent. Extravascular soft tissues: Visualized solid organs are normal in size on limited pre-contrast images. Bowel loops are normal in caliber. No free fluid. No retroperitoneal or mesenteric adenopathy by size criteria. No ventral hernias. Bones: Marrow is normal in overall signal. IMPRESSION: 1. 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 2. 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 Dictated by: Zora Fortune MD, PhD on 05/08/2017 at 12:36 Approved by: Zora Fortune MD, PhD on 05/08/2017 at 12:51 05/03/2017- ct abdomen pelvis contrast- Probable significant stenosis of the celiac axis and critical stenosis of the SMA, fatty liver. 04/01/2017- c.diff stool neg Ct abdomen pelvis 03/18/2017- 4 thickening of the mid descending colon, pancreatitis, prominent mesenteric lymph nodes which could represent mesenteric adenitis and no change in the throughout the colon spine sclerotic foci. 03/14/2017- amylase 97, lipase 63, fecal fat normal, urinalysis was cloudy 1+ protein, positive for nitrite, calcium oxalate crystals. Urine 5-HIAA was normal at 2.4, TSH 3.2, CBC was normal, except platelet count of 549, stool culture was negative, stool for parasites negative, C. difficile was positive, she will chronic and it was 6, celiac panel was negative, complete metabolic panel was normal except alkaline phosphatase of 136 which is slightly elevated. Creatinine of 1.12 with an E GFR of 49, abdominal u/s 12/23/2016- fatty liver, left kidney cysts office visit 04/07/2017- Pt finished vancomycin 125mg po qid x 14 days. Patient states her bowel movements are more formed currently. Her bowel movements are 5 times per day. Currently, the patient is not taking Protonix due to insurance reasons. Patient does complain of epigastric pain. Patient does have early satiety office visit 05/08/2017-patient complains of nausea and vomiting and epigastric pain. Patient also is bloated. Patient is recently returned from a trip. Patient had a CT abdomen and pelvis that was done on 05/03/2017 at the emergency room which showed results listed above. Patient has been taking oxycodone on without any relief. Patient took omeprazole 20 mg once and without bruit. Patient states that she had heart evaluated at the emergency room with a normal EKG. Pt also complains of sob. Assessment & Plan Acute, active acute on chronic nausea,vomiting, significant wt loss, POA, given CTA/MRA findings: critical stenosis of Celiac axis, SMA, classic sx of food aversion, this is most likely chronic mesenteric ischemia, possibly PUD despite using 20mg daily PPI, possible GI malignancy although EGD in the past unrevealing, no signs of acute ischemia, asymptomatic without eating, lactate is normal. -appreciate , possible EGD, -as per , IR can do vascular intervention, pt can benefit from it sooner than later, appreciate GI input -continue aspirin, plavix given CAD, stenosis -will get stool sample, stool PCR Episode of dyspnea, POA, already resolved, Chest CT unremarkable, SpO2 normal, no signs of cardiac ischemia, likely related to vomiting episode, monitor for now MINH, POA, likely prerenal with dehydration, possible Contrast induced nephropathy from CTA 5days ago, -hydrate 100cc/hr, monitor respiratory status closely, -avoid renal toxins, adjust meds renally Chronic, stable HTN, BP rather running low, will hold all home BP meds, IVF as above CAD s/p 2stents on DAPT, not active, EKG-no ischemic, first trop negative. hx of breast CA, stable dispo:Patient will be admitted with inpatient status with expectation of inpatient therapy for more than 2 midnights diet:NPO now dvt ppx:SCD Full code Time spent 65 minutes Henri Carrasco MD May 08, 2017 14:20
[2017-05-08] MEDS ORDERED: Pantoprazole 4 mg/mL 10 mL Inj IVPUSH ONE (16:35)
[2017-05-08] MEDS: 0.9% Sodium Chloride 1,000 ML IV SCH (17:48)
[2017-05-08] MEDS: Sucralfate 1,000 mg Tablet PO SCH (20:58)
[2017-05-09] VITALS (7 sets, daily range): BP systolic 91–122; BP diastolic 54–71; PULSE 74–87; RESP 16–18; O2SAT 95–99
--- NOTE | 2017-05-09 01:52 | CONS ---
[address] [address] CONSULTATION REPORT PATIENT: EARLINE FLAHERTY : 1945 MR#: [id number] ADMIT: 05/08/2017 JOB ID: [id number] DATE OF SERVICE: REQUESTING PHYSICIAN: . REASON FOR CONSULTATION: Abdominal pain and suspected superior mesenteric artery and celiac artery stenosis. HISTORY OF PRESENTING ILLNESS: The patient is a very pleasant 72-year-old woman with a history of breast cancer who underwent partial mastectomy on right side, as well as a history of coronary artery disease for which she has had two coronary stents placed, who reports that she saw Dr. Jack approximately several months ago with complaints of postprandial abdominal pain. These symptoms initially started about six months ago. Following her visit with Dr. Jack it was recommended she pursue an upper endoscopy, followed by further testing. However, she had family out of state that she wished to visit. She; therefore, deferred to receive further treatment or further evaluation. However, during her visit out of state she states that she became increasingly ill. Her main complaints were abdominal pain primarily postprandial. She also reports 12-15 pound weight loss over the last several months. She was seen in the clinic today by Dr. Jack. However, as she was actively vomiting and complaining of abdominal pain, he recommended she come to the emergency department. It was also recommended she obtain an MRI of the abdominal vessels . She did undergo an MR angiogram which revealed high-grade stenosis of the celiac artery, high-grade complete occlusion of the proximal superior mesenteric artery. She was also short of breath. She underwent a CT angiography to rule out PE, which did not show evidence of PE. Upon formal interview with the patient, she states that she used without any abdominal pain, nausea or vomiting. She denies any recent history of diarrhea. She also denies any history of chronic NSAID use. She reports having had a normal upper endoscopy and colonoscopy within the last 18 months. This was recommended by her previous oncologist as she does have a history of breast cancer. She did state that after her last upper endoscopy she was told that she had findings suggestive of early gastric ulcer. She reports that she does take antacid daily at home. PAST MEDICAL HISTORY: Significant for: 1. History of pancreatitis . 2. Coronary artery disease. 3. Hyperlipidemia. 4. Constipation. 5. Chronic lower back pain. PAST SURGICAL HISTORY: Includes: 1. Lumpectomy of the right breast in 2010. 2. Cataract surgery. 3. Ovarian . 4. Carpal tunnel surgery. FAMILY HISTORY: Noncontributory. SOCIAL HISTORY: alcohol use. report that she had been smoking until 2010 after she was diagnosed with breast cancer. She lives with her . HOME MEDICATIONS: Include: 1. Abilify. 2. Aspirin 81 mg. 3. Calcium 600 mg daily. 4. Carafate 1 g 3 times a day. 5. Cranberry extract. 6. Cymbalta. 7. Enalapril. 8. Fish oil. 9. Glucosamine and chondroitin. 10. Iron extended release 325 once a day. 11. Metoprolol 50 mg twice a day. 12. Omeprazole 20 mg 1 capsule daily. 13. 10 mg q.4-6 h. p.r.n. 14. Pantoprazole 40 mg and Friday. 15. Plavix. 16. Probiotics. 17. Simvastatin. 18. Vitamin D. 19. Zantac. 20. . She reports that she is only taking pantoprazole, omeprazole, Zantac or sucralfate. ALLERGIES: She has allergy to PROCAINE. HOSPITAL MEDICATIONS: Include the followin. Aripiprazole. 2. Aspirin 81 mg. 3. Vitamin D. 4. Plavix 75 mg daily. 5. Pantoprazole 40 mg b.i.d. 6. Colace 200 mg. 7. 8. Senna q. nightly. 9. Lipitor. 10. Carafate. 11. Culturelle 1 capsule. 12. . 13. Valium p.r.n. anxiety. 14. Zofran p.r.n. nausea. 15. Tylenol q.4 h. p.r.n. pain. REVIEW OF SYSTEMS: A 10-point review of systems is negative except as mentioned in the HPI. PHYSICAL EXAMINATION: Temperature is 36.7, her pulse is 76, blood pressure is 107/63, respiratory rate is , saturation is 96% on room air. Generally, she is an alert and oriented female in no apparent distress, who is oriented to person, place and time, answers questions appropriately. HEENT: No pallor. No icterus. Oropharynx is clear. Chest exam: Clear to auscultation bilaterally. Cardiovascular exam: S1, S2 heard. No . Abdomen is soft, nontender, nondistended without hepatosplenomegaly. Extremities with trace edema. LABORATORY DATA: Shows white blood cell count of 7.2, , hemoglobin of 12, hematocrit 30 , MCV of 84.6, platelet count of 602, neutrophil , lymphocytes 10.1. Sodium 137, potassium 3.3, chloride 99, CO2 of 24, of 12, creatinine of 1.15, glucose of 128. Her LFTs are normal . Lactic acid is 1. Imaging tests described above. 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 Would recommend Cardiology consultation to see if she may be amenable to angioplasty versus stenting of the stenotic areas of celiac and superior mesenteric arteries. If, however, she is not a candidate for this, would consider referral to Vascular Surgery in [place]. In the meantime, continuing her current medications. Will recommend an upper endoscopy as she does have postprandial abdominal pain to rule out any evidence of peptic ulcer disease. Thank you for allowing me to participate in the patient's care. If you should have any further questions, please do not hesitate to contact me.
[2017-05-09] MEDS: 0.9% Sodium Chloride 1,000 ML IV SCH ×2 (03:41→11:50)
[2017-05-09 06:09] LABS: BASOPHILS % (AUTO) 0.4 % (0-3); EOSINOPHILS % (AUTO) 0.6 % (0-5); MONOCYTES % (AUTO) 10.4 % (4-12); Mean Corpuscular Hemoglobin 26.5 pg (27.0-35.0); Mean Corpuscular Volume 86.9 fL (81-100); Platelet Count 338 bil/L (150-400)
[2017-05-09] MEDS ORDERED: Pantoprazole 20 mg ER24 Tablet PO SCH (06:30)
[2017-05-09 06:34] LABS: Magnesium 1.9 mg/dL (1.6-2.6); Phosphorus 3.4 mg/dL (2.5-4.9)
[2017-05-09] MEDS ORDERED: Potassium Chloride 20 mEq SR Tablet PO ONE (07:55)
[2017-05-09] MEDS: Pantoprazole 4 mg/mL 10 mL Inj IVPUSH SCH ×2 (08:15→17:05)
[2017-05-09] MEDS: ARIPiprazole 2 mg Tablet PO SCH (08:16)
[2017-05-09] MEDS: Sucralfate 1,000 mg Tablet PO SCH ×3 (08:16→23:37)
[2017-05-09] MEDS: Lactobacillus Rhamnosus 10 Bil Unit Capsule PO SCH (08:16)
--- NOTE | 2017-05-09 14:20 | NUR ---
[facility] signed
--- NOTE | 2017-05-09 14:40 | PCM.PNMED ---
Subjective Date of Service May 09, 2017 Subjective pt denied abdominal pain, still kept in NPO denied n/v, no diarrhea Exam Vital Signs Vital Sign - Last Date Time Temp Pulse Resp B/P Pulse Ox O2 Delivery O2 Flow Rate FiO2 05/09/17 09:57 85 05/09/17 09:44 36.8 18 113/61 99 Room Air Intake and Output 05/08/17 05/08/17 05/09/17 Cumulative From/Thru 15:00 23:00 07:00 05/08/17 10:47 - 05/09/17 06:22 Intake Total 1000 ml 1210 ml 2210 ml Balance 1000 ml 1210 ml 2210 ml IV Total 1000 ml 1210 ml 2210 ml Exam NAD, comfortably laying down on the bed no JVD, MMM, no LAD RRR, nl s1, s2 no mrg CTAB, no w,c S,ND,NT,normoactive BS+ warm, no edema, pulses 2/2 IVs and Medications Medications Reviewed: Medications were reviewed in detail Lab and Diagnostics Result Diagram: 05/09/17 0505 05/09/17 0505 X-Rays, CTs and MRIs PROCEDURE: CT ANGIO CHEST PULMONARY EMBOLISM ([id number]) INDICATIONS: 72 year-old female with shortness of breath and vomiting. TECHNIQUE: After the administration of intravenous contrast, 2 mm thick sections acquired from the pulmonary apices to the posterior costophrenic angles. 3-dimensional maximum intensity projection (MIP) coronal and sagittal reformats were then acquired through the thorax. For radiation dose reduction, the following was used: automated exposure control, adjustment of mA and/or kV according to patient size. COMPARISON: [facility], CT, CT ABD PELVIS W CON, 05/03/2017, 19:18. FINDINGS: Image quality: Excellent. Pulmonary arteries: Pulmonary arteries are normal in size, and demonstrate no intraluminal filling defects to suggest central pulmonary embolism. Lungs and pleura: There is centrilobular emphysema. Lungs are clear, except for scattered antral medial pulmonary scarring. No pleural effusions or pneumothorax. Central and peripheral airways are patent. Mediastinum: Heart size is normal, without pericardial effusion. No mediastinal or hilar adenopathy. Thoracic aorta is normal in caliber and enhancement. Esophagus is normal in caliber, without hiatal hernia. Bones and chest wall: Patient is status post right breast lumpectomy and axillary lymph node dissection. No suspicious bony lesions. Ribs and thoracic spine appear intact throughout. Thyroid gland is normal in size, with 1.7 x 1.0 cm anterior left thyroid hypodense lesion. No axillary or supraclavicular adenopathy. Abdomen: Visualized upper abdominal solid organs appear normal in the early arterial phase of enhancement. 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 IMPRESSION: 1. No evidence for central pulmonary embolism. 2. Background centrilobular emphysema. 3. 1.7 x 1.0 cm anterior left thyroid hypodense lesion. Consider further evaluation with thyroid ultrasound when clinically feasible. 4. 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 Dictated by: Daniel Ro M.D. on 05/08/2017 at 12:23 Approved by: Daniel Ro M.D. on 05/08/2017 at 12:35 PROCEDURE: MRA ANGIOGRAM ABDOMEN ([id number]) INDICATIONS: Abd pain, vascular dz on CT TECHNIQUE: Precontrast axial, coronal, and sagittal TruFISP acquired through the abdomen and pelvis. Dynamic coronal MRA using Care Bolus timing of the abdomen and pelvis during the administration of contrast, with 3-dimensional maximum intensity projection (MIP) reformats performed. COMPARISON: [facility], CT, CT ABD PELVIS W CON, 05/03/2017, 19:18. FINDINGS: Image quality: Excellent. 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 Flow is noted in the celiac artery the superior mesenteric artery distal to the high grade origin stenoses. The inferior mesenteric artery is not identified. Aorta: Aorta is normal in caliber and enhancement. Mild, scattered sclerotic irregularity noted in the abdominal aorta without measurable stenosis. Renal arteries: Renal arteries all appear patent. Extravascular soft tissues: Visualized solid organs are normal in size on limited pre-contrast images. Bowel loops are normal in caliber. No free fluid. No retroperitoneal or mesenteric adenopathy by size criteria. No ventral hernias. Bones: Marrow is normal in overall signal. IMPRESSION: 1. 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 2. 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 Dictated by: Zora Fortune MD, PhD on 05/08/2017 at 12:36 Approved by: Zora Fortune MD, PhD on 05/08/2017 at 12:51 05/03/2017- ct abdomen pelvis contrast- Probable significant stenosis of the celiac axis and critical stenosis of the SMA, fatty liver. 04/01/2017- c.diff stool neg Ct abdomen pelvis 03/18/2017- 4 thickening of the mid descending colon, pancreatitis, prominent mesenteric lymph nodes which could represent mesenteric adenitis and no change in the throughout the colon spine sclerotic foci. 03/14/2017- amylase 97, lipase 63, fecal fat normal, urinalysis was cloudy 1+ protein, positive for nitrite, calcium oxalate crystals. Urine 5-HIAA was normal at 2.4, TSH 3.2, CBC was normal, except platelet count of 549, stool culture was negative, stool for parasites negative, C. difficile was positive, she will chronic and it was 6, celiac panel was negative, complete metabolic panel was normal except alkaline phosphatase of 136 which is slightly elevated. Creatinine of 1.12 with an E GFR of 49, abdominal u/s 12/23/2016- fatty liver, left kidney cysts office visit 04/07/2017- Pt finished vancomycin 125mg po qid x 14 days. Patient states her bowel movements are more formed currently. Her bowel movements are 5 times per day. Currently, the patient is not taking Protonix due to insurance reasons. Patient does complain of epigastric pain. Patient does have early satiety office visit 05/08/2017-patient complains of nausea and vomiting and epigastric pain. Patient also is bloated. Patient is recently returned from a trip. Patient had a CT abdomen and pelvis that was done on 05/03/2017 at the emergency room which showed results listed above. Patient has been taking oxycodone on without any relief. Patient took omeprazole 20 mg once and without bruit. Patient states that she had heart evaluated at the emergency room with a normal EKG. Pt also complains of sob. Assessment & Plan Acute, active acute on chronic nausea,vomiting, significant wt loss, POA, given CTA/MRA findings: critical stenosis of Celiac axis, SMA, classic sx of food aversion, likely due to chronic mesenteric ischemia, possibly PUD despite using 20mg daily PPI, possible GI malignancy although EGD in the past unrevealing, no signs of acute ischemia, asymptomatic without eating, lactate is normal. -appreciate , plan for EGD today. -plan to have mesenteric angiogram/angioplasty by IR on 05/12 2pm, scheduled as an outpt, NPO after MN of 05/11 -continue aspirin, plavix given CAD, stenosis -will get stool sample, stool PCR Episode of dyspnea, POA, already resolved prior to ED, Chest CT unremarkable, SpO2 normal, no signs of cardiac ischemia, likely related to vomiting episode, monitor for now MINH, POA, likely prerenal with dehydration, possible Contrast induced nephropathy from CTA 5days ago, -resolved with IVF NS 100cc/hr, -avoid renal toxins, adjust meds renally Chronic, stable HTN, BP rather running low, held home BB, decrease to [id number] bid given normotension CAD s/p 2stents on DAPT, not active, EKG-no ischemic, first trop negative. hx of breast CA, stable dispo:likely 1-2more days, d/c then return for procedure on 05/14 diet:NPO now, consider small/soft diet after EGD dvt ppx:SCD Full code VTE Mechanical Devices: Intermittant Pneumatic CD Time spent 35min Henri Carrasco MD May 09, 2017 14:40
--- NOTE | 2017-05-09 18:35 | NUR ---
Diet / Pain Pain has resolved. Pt has been NPO. Increased diet this evening to clears. Tolerating clears at this time. Ambulating well independently with steady gait.
--- NOTE | 2017-05-09 22:27 | PCM.PNMED ---
Subjective Date of Service May 09, 2017 Subjective no complaints and tolerating clear liquid diet. Exam Vital Signs Vital Sign - Last Date Time Temp Pulse Resp B/P Pulse Ox O2 Delivery O2 Flow Rate FiO2 05/09/17 20:14 36.6 82 16 104/54 95 Room Air Intake and Output 05/08/17 05/08/17 05/09/17 Cumulative From/Thru 15:00 23:00 07:00 05/08/17 10:47 - 05/09/17 06:22 Intake Total 1000 ml 1210 ml 2210 ml Balance 1000 ml 1210 ml 2210 ml IV Total 1000 ml 1210 ml 2210 ml Exam GEN- no aaparent distress HEENT- no pallor or icterus Resp- clear bilaterally CVS-RRR Abdomen- benign Ext- no edema Lab and Diagnostics Result Diagram: 05/09/17 0505 05/09/17 0505 X-Rays, CTs and MRIs PROCEDURE: CT ANGIO CHEST PULMONARY EMBOLISM ([id number]) INDICATIONS: 72 year-old female with shortness of breath and vomiting. TECHNIQUE: After the administration of intravenous contrast, 2 mm thick sections acquired from the pulmonary apices to the posterior costophrenic angles. 3-dimensional maximum intensity projection (MIP) coronal and sagittal reformats were then acquired through the thorax. For radiation dose reduction, the following was used: automated exposure control, adjustment of mA and/or kV according to patient size. COMPARISON: [facility], CT, CT ABD PELVIS W CON, 05/03/2017, 19:18. FINDINGS: Image quality: Excellent. Pulmonary arteries: Pulmonary arteries are normal in size, and demonstrate no intraluminal filling defects to suggest central pulmonary embolism. Lungs and pleura: There is centrilobular emphysema. Lungs are clear, except for scattered antral medial pulmonary scarring. No pleural effusions or pneumothorax. Central and peripheral airways are patent. Mediastinum: Heart size is normal, without pericardial effusion. No mediastinal or hilar adenopathy. Thoracic aorta is normal in caliber and enhancement. Esophagus is normal in caliber, without hiatal hernia. Bones and chest wall: Patient is status post right breast lumpectomy and axillary lymph node dissection. No suspicious bony lesions. Ribs and thoracic spine appear intact throughout. Thyroid gland is normal in size, with 1.7 x 1.0 cm anterior left thyroid hypodense lesion. No axillary or supraclavicular adenopathy. Abdomen: Visualized upper abdominal solid organs appear normal in the early arterial phase of enhancement. 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 IMPRESSION: 1. No evidence for central pulmonary embolism. 2. Background centrilobular emphysema. 3. 1.7 x 1.0 cm anterior left thyroid hypodense lesion. Consider further evaluation with thyroid ultrasound when clinically feasible. 4. 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 Dictated by: Daniel Ro M.D. on 05/08/2017 at 12:23 Approved by: Daniel Ro M.D. on 05/08/2017 at 12:35 PROCEDURE: MRA ANGIOGRAM ABDOMEN ([id number]) INDICATIONS: Abd pain, vascular dz on CT TECHNIQUE: Precontrast axial, coronal, and sagittal TruFISP acquired through the abdomen and pelvis. Dynamic coronal MRA using Care Bolus timing of the abdomen and pelvis during the administration of contrast, with 3-dimensional maximum intensity projection (MIP) reformats performed. COMPARISON: [facility], CT, CT ABD PELVIS W CON, 05/03/2017, 19:18. FINDINGS: Image quality: Excellent. 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 Flow is noted in the celiac artery the superior mesenteric artery distal to the high grade origin stenoses. The inferior mesenteric artery is not identified. Aorta: Aorta is normal in caliber and enhancement. Mild, scattered sclerotic irregularity noted in the abdominal aorta without measurable stenosis. Renal arteries: Renal arteries all appear patent. Extravascular soft tissues: Visualized solid organs are normal in size on limited pre-contrast images. Bowel loops are normal in caliber. No free fluid. No retroperitoneal or mesenteric adenopathy by size criteria. No ventral hernias. Bones: Marrow is normal in overall signal. IMPRESSION: 1. 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 2. 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 Dictated by: Zora Fortune MD, PhD on 05/08/2017 at 12:36 Approved by: Zora Fortune MD, PhD on 05/08/2017 at 12:51 05/03/2017- ct abdomen pelvis contrast- Probable significant stenosis of the celiac axis and critical stenosis of the SMA, fatty liver. 04/01/2017- c.diff stool neg Ct abdomen pelvis 03/18/2017- 4 thickening of the mid descending colon, pancreatitis, prominent mesenteric lymph nodes which could represent mesenteric adenitis and no change in the throughout the colon spine sclerotic foci. 03/14/2017- amylase 97, lipase 63, fecal fat normal, urinalysis was cloudy 1+ protein, positive for nitrite, calcium oxalate crystals. Urine 5-HIAA was normal at 2.4, TSH 3.2, CBC was normal, except platelet count of 549, stool culture was negative, stool for parasites negative, C. difficile was positive, she will chronic and it was 6, celiac panel was negative, complete metabolic panel was normal except alkaline phosphatase of 136 which is slightly elevated. Creatinine of 1.12 with an E GFR of 49, abdominal u/s 12/23/2016- fatty liver, left kidney cysts office visit 04/07/2017- Pt finished vancomycin 125mg po qid x 14 days. Patient states her bowel movements are more formed currently. Her bowel movements are 5 times per day. Currently, the patient is not taking Protonix due to insurance reasons. Patient does complain of epigastric pain. Patient does have early satiety office visit 05/08/2017-patient complains of nausea and vomiting and epigastric pain. Patient also is bloated. Patient is recently returned from a trip. Patient had a CT abdomen and pelvis that was done on 05/03/2017 at the emergency room which showed results listed above. Patient has been taking oxycodone on without any relief. Patient took omeprazole 20 mg once and without bruit. Patient states that she had heart evaluated at the emergency room with a normal EKG. Pt also complains of sob. Assessment & Plan Post prandial abdominal pain -egd tomorrow to rule out any mucosal pathology if EGD normal then further plans as per primary team regarding further management of celiac and SMA stenosis. VTE Mechanical Devices: Intermittant Pneumatic CD Thomas Winter MD May 09, 2017 22:27
[2017-05-10] VITALS (8 sets, daily range): BP systolic 93–121; BP diastolic 42–72; PULSE 77–89; RESP 14–23; O2SAT 95–100
--- NOTE | 2017-05-10 05:04 | NUR ---
activity pt has denied any pain or nausea this shift. she has been up independently to the bathroom steady on her feet. she states she had 2 loose stools during the day yesterday but denies any BMs this shift. she states she has just been sipping on her clears and tolerating well. pt has been made NPO at 0500 for her procedure today. care continues. Addendum: 05/10/17 at 0526 by RAQUEL ANTHONY RN metoprolol was held last night for low blood pressure. pt was asymptomatic, up walking around. this AM BP is 93/55. she states she is feeling well, no symptoms.
[2017-05-10 05:50] LABS: BASOPHILS % (AUTO) 0.3 % (0-3); EOSINOPHILS % (AUTO) 1.3 % (0-5); MONOCYTES % (AUTO) 8.4 % (4-12); Mean Corpuscular Hemoglobin 26.4 pg (27.0-35.0); Mean Corpuscular Volume 85.4 fL (81-100); Platelet Count 395 bil/L (150-400)
[2017-05-10 06:24] LABS: Magnesium 1.7 mg/dL (1.6-2.6)
[2017-05-10] MEDS: Pantoprazole 4 mg/mL 10 mL Inj IVPUSH SCH ×2 (06:26→16:25)
[2017-05-10] MEDS: Sucralfate 1,000 mg Tablet PO SCH ×2 (08:30→14:30)
[2017-05-10] MEDS: ARIPiprazole 2 mg Tablet PO SCH (08:30)
[2017-05-10] MEDS: Lactobacillus Rhamnosus 10 Bil Unit Capsule PO SCH (08:30)
--- NOTE | 2017-05-10 10:31 | PCM.DIMED ---
Discharge Instructions Date of Service May 10, 2017 Dates of Hospitalization May 08, 2017 at 14:55 Discharge Diagnosis Discharge Diagnosis Chronic mesenteric ischemia Medication Instructions Additional med instructions Please note that your blood regimen Enalapril and Metoprolol briefly held due to persistent low blood pressure Diet Discharge Diet: Other (small, frequent meals) Activity Discharge Activity: No restrictions Call your provider Call your provider for: Excessive diarrhea, Other (severe abdominal pain) Patient Instructions Patient Instructions You were hospitalized with symptoms concerning for mesenteric ischemia from narrowing of your blood vessels in your gut. -Y-o-u- -t-x-u-o-x-q-e-n-t- -h-x-j-h-q-r-o-p-y--,- -w-h-i-c-h- -d-i-d-n--'--t- -x-g-c-e-a-l- -a-n-y- -l-q-v-o-d-e-o-g-y- -o-n- -y-o-u-r- -j-t-i-m-a-c-h- -a-n-d- -j-k-i-i-h-f-g-u-s-.- Please note that we arranged the intervention for your narrowed arteries in your gut, with on Friday, 05/12 at 2pm, scheduled as an outpt. Please DO NOT EAT after midnight of 05/11. Please follow up with your primary doctor in 2weeks Follow-up with PCP in: 2 weeks Henri Carrasco MD May 10, 2017 10:31
--- NOTE | 2017-05-10 12:07 | NUR ---
Social Work: Initial Assessment/Readiness for Discharge D: EMR reviewed. Pt is a 72 y/o female admitted for ABD pain per H&P. ANNA met with pt and spouse at bedside to conduct initial assessment. Pt was alert and oriented x3. SW explained role and wrote phone number on white board. SW confirmed pt has completed DPOA/advanced directive ppw and has provided a copy to the hospital. Pt gave verbal consent to contact her spouse/DPOA, Buck Valdez ([phone]) for discharge planning. Pt's insurance is Medicare and [employer]. Pt's PCP is Eileen Narvaez PA-C. Pt has no hx of or a SNF. Pt does not have LTC insurance or VA benefits. Pt is independent with ADLs. Pt owns a FWW and only uses it to ambulate long distances. Pt does not own or use any other DME. Pt does not drive. Pt is independent at baseline. Pt lives with her spouse in 5th wheel trailer with 4 steps to enter [place]. Pt's spouse confirmed he will provide transport home when pt is medically stable. he will SW does not anticipate any discharge needs at this time but will continue to follow if needs arise. Per MD in AM multi-disciplinary rounds, pt is likely to discharge today if pt is cleared by GI after endoscopy. MD does not anticipate an discharge needs from SW at this time. A: Pt who is independent at baseline P: Pt's spouse confirmed he will provide transport home when pt is medically stable. he will SW does not anticipate any discharge needs at this time but will continue to follow if needs arise. INEZ Patel Addendum: 05/10/17 at 1215 by MALLORIE SALINAS Amended: Links added.
--- NOTE | 2017-05-10 15:22 | NUR ---
Anxious / Ambulation Pt anxious at times to get home and for procedures to be completed. Upper endo scheduled for today has been pushed back several times. Pt irritated about this but understands that this is necessary and that procedures must be performed in order of priority. Pt ambulating with steady gait to bathroom. Denies pain at this time.
--- NOTE | 2017-05-10 16:34 | NUR ---
Missed meds Spoke with MD regarding missed medications r/t NPO status and the changing of Upper endo times throughout the day. Per MD OK to nonadmin htese medications and pt to restart tomorrow. MD aware of missed medications r/t NPO status.
--- NOTE | 2017-05-10 17:54 | NUR ---
To endo Pt leaves to Endo around 1730. RA, SL, NPO X 24hrs. Addendum: 05/10/17 at 1856 by MERRITT GALINDO RN Pt back from Endo. A&OX4 slightly sleepy. Denies nausea at this time. Denies SOB, CP, Pain. MD Carrasco paged regarding plans for DC or not considering Stomach ulcer was found on Upper Endo. Encouraged to meet with Endo MD regarding plan. Waiting for new plan to DC or not.
--- NOTE | 2017-05-10 18:18 | PCM.HPANE ---
Patient Data Surgeon Admitting Provider:Henri Carrasco MD Attending Provider:Henri Carrasco MD Primary Care Physician:Eileen Narvaez PA-C Other Provider: Reason for Visit Abd Pain ABD PAIN Ht/WT & BMI Height (Feet): 5 Height (Inches): 7.00 Weight (Kilograms): 70.000 Body Mass Index 24.00 Allergies Coded Allergies: procaine (Verified Adverse Reaction, Intermediate, nausea or diarrhea, ) Past Anesthesia History Anesthesia History: Denies:: Anesthesia Reactions Diabetes History Hx Diabetes?: No MRSA MRSA: No Medications Hypertension Medication: Yes Home Meds Incl Beta Lázaro: Yes Date Beta Lázaro Taken: May 09, 2017 Time Beta Lázaro Taken: 16:00 Previous Beta Lázaro Dose >24: Dose Not Given, Contraindicated Reported Medications Docusate Sodium (Colace)100 Mg Pvbymto816 Mg PO HS Ref 0 05/08/17 Sennosides (Senna)8.6 Mg Tablet8.6 Mg PO HS 05/08/17 Acetaminophen 500 Mg Ututewr854 Mg PO Q6H PRN For Pain 05/08/17 Omeprazole 20 Mg Capsule.dr20 Mg PO DAILY #90 05/08/17 Ferrous Sulfate (Iron)325 Mg Capsule.er325 Mg PO DAILY 05/08/17 Sucralfate 1 Gm Tablet1 Gm PO TID #120 05/08/17 Aripiprazole 2 Mg Tablet2 Mg PO DAILY #30 05/08/17 oxyCODONE 10 Mg Xpghsp84 Mg PO Q6H PRN For Pain Ref 0 10/24/16 Diazepam 5 Mg Tablet5 Mg PO HS PRN For Anxiety Ref 0 10/24/16 Triamcinolone Acet (Triamcinolone Acetonide Cream)1 Applic/0.25 Gm Cr1 Applic EXT WEEKLY #60 GM Ref 0 10/24/16 Yeast (Landaverde's Yeast)680 Mg Avyris115 Mg PO DAILY 10/24/16 Gluc 2Kcl/Chondr/Rosa Hy/Hy AC (Glucosamine & Chondroitin Cap)1 Each Capsule1 Each PO BID 10/24/16 Five Points-3 Fatty Acids (Fish Oil)500 Mg Capsule.dr1,000 Mg PO DAILY 10/24/16 Lactobacillus Acidophilus (Probiotic)1 Each Capsule1 Each PO DAILY 10/24/16 Duloxetine 60 Mg Capsule.dr60 Mg PO DAILY Ref 0 10/24/16 Cranberry Extract (Cranberry)300 Mg Heuehw108 Mg PO DAILY 10/24/16 Cholecalciferol (Vitamin D3) (Vitamin D)1,000 Unit Tablet2,000 Unit PO DAILY #1 BOTTLE Ref 0 10/24/16 Calcium Carbonate/Vitamin D3 (Calcium + Vitamin D Tablet)1 Each Tablet1 Each PO BID 10/24/16 Simvastatin 40 Mg Zpxqij32 Mg PO HS 30 Days Ref 0 10/24/16 Clopidogrel Bisulfate (Plavix)75 Mg Vfebtn37 Mg PO DAILY 30 Days Ref 0 10/24/16 Aspirin 81 Mg Drzbsp48 Mg PO DAILY Ref 0 10/24/16 Discontinued Reported Medications Metoprolol Tartrate 50 Mg Imbswj26 Mg PO BID 30 Days Ref 0 10/24/16 Enalapril Maleate 10 Mg Tablet5 Mg PO DAILY Ref 0 10/24/16 Polyethylene Glycol 3350 17 Gm Powd.pack17 Gm PO BID PRN For Constipation 12/02/16 Carboxymethylcellulose Sodium (Lubricant Eye Drops)15 Ml Drops15 Ml OP BID 10/24/16 Piroxicam 20 Mg Duoqkqx67 Mg PO DAILY 10/24/16 Sennosides/Docusate Sodium (Senna-Docusate Sodium Tablet)1 Each Tablet1 Each PO DAILY 10/24/16 Ranitidine (Zantac)150 Mg Nngiuu143 Mg PO BID PRN to diminish side effects ofmed 10/24/16 Anastrozole 1 Mg Tablet1 Mg PO DAILY 10/24/16 Acetaminophen (Tylenol Arthritis)650 Mg Tablet.er650 Mg PO DAILY PRN For Pain 10/24/16 [stool softner] No Conflict Check50 Mg PO BID 10/24/16 [iron] No Conflict Check65 Mg PO DAILY 10/24/16 Discontinued Scripts Ondansetron ODT (Zofran ODT)4 Mg Tablet4 Mg PO Q4H PRN For Nausea #14 TABLET Prov:Buck Galaviz DO 05/03/17 History History of ENT Problems?: Yes HEENT History: Positive for:: Cataracts Denies:: Dysphagia Glaucoma Sinus Problem Denture Type: Full- Upper Teeth Condition: Within Normal Limits Hx of Heart Problems?: Yes Cardiovascular History: Positive for:: Cardiac Surgery (stents 2000) Hypertension Denies:: Congestive Heart Failure Other Cardiac History: hyperlipidemia, anemia, CAD Hx of Respiratory Problem?: No Respiratory History: Denies:: Tuberculosis Hx Neurologic Problems?: No Hx of GI Problems?: Yes Gastrointestinal History: Positive for:: Gastrointestinal Bleeding Other GI Pertinent History: slow transit constipation Hx of Problems?: Yes Genitourinary History: Positive for:: Urinary Tract Infection Denies:: HX of Hemodialysis Kidney Stones HX of Peritoneal Dialysis: No Female Hx: Positive for:: Problems with Breasts? (breast ca with lumpectomy/ lymph node removal) Denies:: Currently Endometriosis Pelvic Inflammatory Hx Musculoskeletal Problems?: Yes Musculoskeletal History: Positive for:: Back Injury (chronic low back pain - treats with tylenol) Denies:: Joint Replacement Musculoskeletal Trauma Hx of Psycho/Social Problems?: Yes Psycho Social History: Positive for:: Anxiety Hx Depression Denies:: Bipolar Disorder Suicide Attempt Hx Surgeries?: Yes (L3 back surgery, stent, oopherectomy) Hx Any Other Health Problems?: Yes Other History: Positive for:: Cancer (R breast post radiation and lumptectomy/ lymphectomy) Hospitalization (c-dif, heart attack, ovary burst) Denies:: Thyroid Disease History Blood Transfusions: Positive for:: Accept Blood Products? Denies:: Blood Transfusions Hx Diabetes: No Other Pertinent History: osteomyelitis L lower jaw - treated with hyperbaric chamber Hx Alcohol Use: NoHx Substance Use: No Smoking Status: Former Smoker Unknown if Ever Smoker Stop/Bang Treated for Sleep Apnea?: No Do You Have a CPAP Machine?: No S-Snoring: Do You Snore Loudly: No T-Tired: feel tired, fatigued: No O-Obsered: Observed not breath: No P-Blood Pressure: treated: Yes B- Body Mass Index > 35 kg/m2: No A- Age over 50: Yes N- Neck Large Circumference: No G- Gender Male: No ADRIANA Total Score: 2 Risk Assessment Category Category 1A: Patient has history of documented sleep apnea, and HAS NOT received any narcotic, sedative or anesthesia administration during this stay. Category 1B: Patient has history of documented sleep apnea, and HAS received any narcotic , sedative or anesthesia administration during this stay Category 2: Patient has SUSPECTED Obstructive Sleep Apnea, and HAS received any narcotic , sedative or anesthesia administration during this stay. Category 3: Patient has SUSPECTED Obstructive Sleep Apnea and HAS NOT received narcotic, sedative or anesthesia administration during this stay. Category 4: Outpatient in Procedural Areas with known sleep apnea or who screen positive for High Risk via the STOP/BANG questionnaire. Exam Exam Vital Signs Vital Signs Date Time Temp Pulse Resp B/P Pulse Ox O2 Delivery O2 Flow Rate FiO2 05/10/17 13:46 36.8 84 18 100/50 96 Room Air 05/10/17 10:40 36.7 78 14 117/72 96 Room Air General Appearance: Alert, Oriented X3, Cooperative, No Acute Distress HEENT/AIRWAY: MP 1 Lungs: Clear to Auscultation Heart: Exam Unremarkable Meds/Labs/Diagnostics Labs Test 05/08/17 11:10 05/08/17 13:00 05/08/17 14:49 05/10/17 05:18 Lactic Acid Level 1.0mmol/L (0.4-2.0) Troponin T 0.010ug/L (0.0-0.011) Lipase 41U/L (13-60) Hold Urine Received (Received) Urine Color Straw (YELLOW) Urine Appearance Hazy (CLEAR,HAZY) Urine pH 7.0 (5.0-8.0) Urine Specific [place] 1.010 (1.003-1.035) Urine Protein 30mg/dL (NEG,TRACE) Urine Glucose (UA) Negativemg/dL (NEGATIVE) Urine Ketones Negativemg/dL (NEGATIVE) Urine Occult Blood Negative (NEGATIVE) Urine Nitrite Negative (NEGATIVE) Urine Bilirubin Negative (NEGATIVE) Urine Urobilinogen Normalmg/dL (NORMAL) Urine Leukocyte Esterase Negative (NEGATIVE) Urine RBC 0-2/hpf (0-2) Urine WBC 0-5/hpf (0-5) Urine Epithelial Cells Occasional/hpf (NONE-MOD) Urine Crystals None seen (NONE SEEN) Urine Bacteria Few/hpf (NONE-FEW) Urine Hyaline Casts Occasional/lpf (NONE) Urine Granular Casts None seen (NONE SEEN) Urine Waxy Casts None seen (NONE SEEN) Urine Red Blood Cell Casts None seen (NONE SEEN) Urine White Blood Cell Casts None seen (NONE SEEN) Urine Mucus None seen (None Seen) Urine Trichomonas None seen (NONE SEEN) Urine Yeast None (NONE SEEN) Urinalysis Comment None Urine Culture Reflexed Not indicated White Blood Count 9.5th/mm3 (3.8-10.1) Red Blood Count 4.24mil/mm3 (3.90-5.20) Hemoglobin 11.2g/dL (12.0-15.6) Hematocrit 36.2% (35.0-46.0) Mean Corpuscular Volume 85.4fL (81-100) Mean Corpuscular Hemoglobin 26.4pg (27.0-35.0) Mean Corpuscular Hemoglobin Concent 30.9% (32.0-37.0) Red Cell Distribution Width 13.5% (12.3-15.4) Platelet Count 395bil/L (150-400) Neutrophils (%) (Auto) 70.0% (40-74) Lymphocytes (%) (Auto) 19.7% (14-46) Monocytes (%) (Auto) 8.4% (4-12) Eosinophils (%) (Auto) 1.3% (0-5) Basophils (%) (Auto) 0.3% (0-3) Sodium Level 141mEq/L (134-144) Potassium Level 3.7mEq/L (3.5-5.2) Chloride Level 107mEq/L (97-108) Carbon Dioxide Level 17mmol/L (18-29) Blood Urea Nitrogen 8mg/dL (8-27) Creatinine 0.92mg/dL (0.57-1.00) Estimat Glomerular Filtration Rate 85mL/min (>59) Glucose Level 59mg/dL (60-99) Calcium Level 9.0mg/dL (8.5-10.1) Phosphorus Level 3.0mg/dL (2.5-4.9) Magnesium Level 1.7mg/dL (1.6-2.6) Total Bilirubin 0.2mg/dL (0.0-1.2) Aspartate Amino Transf (AST/SGOT) 22U/L (0-50) Alanine Aminotransferase (ALT/SGPT) 16U/L (0-32) Alkaline Phosphatase 117U/L (25-165) Total Protein 6.8g/dL (6.4-8.4) Albumin 3.0g/dL (3.4-5.0) Plan Impression Patient chart reviewed, patient interviewed and anesthestic plan with risks, benefits, and alternatives discussed, and informed consent obtained. ASA Physical Status: ASA3 Severe Disease Anesthetic Plan: GA Bene/Risks/Altern/Consents: Yes HP Complete Prior to Induction: Yes Taco Pimentel DO May 10, 2017 18:04
--- NOTE | 2017-05-10 18:22 | PCM.ANEP1 ---
Post Anesthesia PACU Phase 1 Assessment Vital Signs Vital Signs Date Time Temp Pulse Resp B/P Pulse Ox O2 Delivery O2 Flow Rate FiO2 05/10/17 18:09 79 23 121/53 100 Room Air 05/10/17 13:46 36.8 84 18 100/50 96 Room Air 05/10/17 10:40 36.7 78 14 117/72 96 Room Air Anesthetic Administered: GA Level of Alertness: Awake, talking PANTOJA's with Equal Strength: Yes Pain: No Pain Scale Score: 7 Nausea or Vomiting: No CV Function & Hydration Stable: Yes Airway Device: Oxygen Delivery: Room Air Lungs: Clear to Auscultation Dermatome Level: Full Sensation PACU Phase 2 Assessment Complications: No Follow up Care: N/A Patient Instructions Provided: N/A Taco Pimentel DO May 10, 2017 18:22
[2017-05-10] MEDS ORDERED: PANT40TA3 PO (19:18)
[2017-05-10] MEDS ORDERED: METO25TA6 PO (19:20)
--- NOTE | 2017-05-10 20:28 | NUR ---
DC Confirmed with MD Reich. to stop all anticoagulants including Aspirin, Plavix, and all NSAIDs. Also confirmed with MD Reich that he will contact Radiologist Friday morning and inform pt of plan for Friday procedure. All discharge instructions reviewed. Prescriptions in hand. All belonging in hand. Pt states that she understands all DC instructions. Leaves via WC with staff to home with . Care discontinues
[2017-05-10] MEDS ORDERED: Propofol 10 mg/mL 20 mL Inj ONE (20:29)
--- NOTE | 2017-05-10 21:43 | ENDO ---
[address] [address] ENDOSCOPY PROCEDURE PATIENT: EARLINE FLAHERTY : 1945 MR#: [id number] ADMIT: 05/08/2017 JOB ID: [id number] DATE: 05/10/2017 PROCEDURE: Esophagogastroduodenoscopy. INDICATION: Abdominal pain. Patient with a history of celiac and superior mesenteric artery stenosis who has been having postprandial abdominal pain. EGD is being performed today to rule out peptic ulcer disease. ANESTHESIA: Please see Dr. Pimentel's anesthesia report for details regarding ASA classification, Mallampati score, and medications. INSTRUMENT USED: [id number] PROCEDURE DETAILS: After informed consent was obtained, the patient was brought to the GI suite, where she was placed on oxygen via nasal cannula and monitored with continuous pulse oximeter, telemetry, and blood pressure monitoring. A time-out was performed. Then, she was placed in a left lateral decubitus position and medications were administered for sedation. A bite block was placed. The standard EGD scope was inserted through the bite block and advanced under direct visualization to second portion of duodenum without difficulty. FINDINGS: 1. Normal-appearing duodenal bulb, first and second portion. 2. Normal-appearing pylorus. In the antrum, body and fundus of the stomach, the mucosa had scattered pale appearance suggestive of possibly ischemia. In between the scattered areas there was pink and normal-appearing mucosa. 3. In the in the distal part of the gastric body, there was an approximately 8 mm ulcer. The ulcer did not have well-demarcated margins. The ulcer base was not actively bleeding. There was no adherent clot or visible vessel noted. The ulcer was quite shallow itself. Multiple biopsies were obtained from the ulcer. 4. The scope was then withdrawn back to the GE junction which appeared normal at 40 cm. 5. Normal-appearing esophagus. IMPRESSION: 1. Approximately 8 mm to 9 mm ulcer in the gastric body. 2. Scattered pale mucosa throughout the entire portions of the antrum, body and fundus of the stomach suggestive of possible ischemia. RECOMMENDATIONS: 1. PPI . 2. Keep appointment with Interventional Radiology for possible treatment of celiac stenosis and superior mesenteric artery stenosis. 3. Avoid NSAIDs if able. 4. PPI . COMPLICATIONS: None. ESTIMATED BLOOD LOSS: Less than 5 mL.
--- NOTE | 2017-05-11 11:10 | PCM.DC.MED ---
Discharge Summary Date of Service May 10, 2017 Dates of Hospitalization Date of Hospital Admission May 08, 2017 at 14:55 Date of Discharge: May 10, 2017 Providers: Admitting Physician: Henri Begum MD Primary Care Physician: Eileen Narvaez PA-C Attending Physician: Henri Begum MD Diagnosis at Time of Discharge Diagnosis at Time of Discharge Acute dx Chronic mesenteric ischemia Peptic ulcer disease AKII, prerenal and/or contrast-induced nephropathy Chronic dx HTN, CAD s/p 2stents on DAPT, hx of breast CA Consultations Gastroenterology Procedures XRay, CTs & MRIs PROCEDURE: CT ANGIO CHEST PULMONARY EMBOLISM ([id number]) INDICATIONS: 72 year-old female with shortness of breath and vomiting. TECHNIQUE: After the administration of intravenous contrast, 2 mm thick sections acquired from the pulmonary apices to the posterior costophrenic angles. 3-dimensional maximum intensity projection (MIP) coronal and sagittal reformats were then acquired through the thorax. For radiation dose reduction, the following was used: automated exposure control, adjustment of mA and/or kV according to patient size. COMPARISON: [facility], CT, CT ABD PELVIS W CON, 05/03/2017, 19:18. FINDINGS: Image quality: Excellent. Pulmonary arteries: Pulmonary arteries are normal in size, and demonstrate no intraluminal filling defects to suggest central pulmonary embolism. Lungs and pleura: There is centrilobular emphysema. Lungs are clear, except for scattered antral medial pulmonary scarring. No pleural effusions or pneumothorax. Central and peripheral airways are patent. Mediastinum: Heart size is normal, without pericardial effusion. No mediastinal or hilar adenopathy. Thoracic aorta is normal in caliber and enhancement. Esophagus is normal in caliber, without hiatal hernia. Bones and chest wall: Patient is status post right breast lumpectomy and axillary lymph node dissection. No suspicious bony lesions. Ribs and thoracic spine appear intact throughout. Thyroid gland is normal in size, with 1.7 x 1.0 cm anterior left thyroid hypodense lesion. No axillary or supraclavicular adenopathy. Abdomen: Visualized upper abdominal solid organs appear normal in the early arterial phase of enhancement. 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 IMPRESSION: 1. No evidence for central pulmonary embolism. 2. Background centrilobular emphysema. 3. 1.7 x 1.0 cm anterior left thyroid hypodense lesion. Consider further evaluation with thyroid ultrasound when clinically feasible. 4. 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 Dictated by: Daniel Ro M.D. on 05/08/2017 at 12:23 Approved by: Daniel Ro M.D. on 05/08/2017 at 12:35 PROCEDURE: MRA ANGIOGRAM ABDOMEN ([id number]) INDICATIONS: Abd pain, vascular dz on CT TECHNIQUE: Precontrast axial, coronal, and sagittal TruFISP acquired through the abdomen and pelvis. Dynamic coronal MRA using Care Bolus timing of the abdomen and pelvis during the administration of contrast, with 3-dimensional maximum intensity projection (MIP) reformats performed. COMPARISON: [facility], CT, CT ABD PELVIS W CON, 05/03/2017, 19:18. FINDINGS: Image quality: Excellent. 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 Flow is noted in the celiac artery the superior mesenteric artery distal to the high grade origin stenoses. The inferior mesenteric artery is not identified. Aorta: Aorta is normal in caliber and enhancement. Mild, scattered sclerotic irregularity noted in the abdominal aorta without measurable stenosis. Renal arteries: Renal arteries all appear patent. Extravascular soft tissues: Visualized solid organs are normal in size on limited pre-contrast images. Bowel loops are normal in caliber. No free fluid. No retroperitoneal or mesenteric adenopathy by size criteria. No ventral hernias. Bones: Marrow is normal in overall signal. IMPRESSION: 1. 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 2. 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 Dictated by: Zora Fortune MD, PhD on 05/08/2017 at 12:36 Approved by: Zora Fortune MD, PhD on 05/08/2017 at 12:51 05/03/2017- ct abdomen pelvis contrast- Probable significant stenosis of the celiac axis and critical stenosis of the SMA, fatty liver. 04/01/2017- c.diff stool neg Ct abdomen pelvis 03/18/2017- 4 thickening of the mid descending colon, pancreatitis, prominent mesenteric lymph nodes which could represent mesenteric adenitis and no change in the throughout the colon spine sclerotic foci. 03/14/2017- amylase 97, lipase 63, fecal fat normal, urinalysis was cloudy 1+ protein, positive for nitrite, calcium oxalate crystals. Urine 5-HIAA was normal at 2.4, TSH 3.2, CBC was normal, except platelet count of 549, stool culture was negative, stool for parasites negative, C. difficile was positive, she will chronic and it was 6, celiac panel was negative, complete metabolic panel was normal except alkaline phosphatase of 136 which is slightly elevated. Creatinine of 1.12 with an E GFR of 49, abdominal u/s 12/23/2016- fatty liver, left kidney cysts office visit 04/07/2017- Pt finished vancomycin 125mg po qid x 14 days. Patient states her bowel movements are more formed currently. Her bowel movements are 5 times per day. Currently, the patient is not taking Protonix due to insurance reasons. Patient does complain of epigastric pain. Patient does have early satiety office visit 05/08/2017-patient complains of nausea and vomiting and epigastric pain. Patient also is bloated. Patient is recently returned from a trip. Patient had a CT abdomen and pelvis that was done on 05/03/2017 at the emergency room which showed results listed above. Patient has been taking oxycodone on without any relief. Patient took omeprazole 20 mg once and without bruit. Patient states that she had heart evaluated at the emergency room with a normal EKG. Pt also complains of sob. Invasive Procedures ENDOSCOPY PROCEDURE PATIENT: EARLINE FLAHERTY : 1945 MR#: [id number] ADMIT: 05/08/2017 JOB ID: [id number] PROCEDURE: Esophagogastroduodenoscopy. INDICATION: Abdominal pain. Patient with a history of celiac and superior mesenteric artery stenosis who has been having postprandial abdominal pain. EGD is being performed today to rule out peptic ulcer disease. ANESTHESIA: Please see Dr. Pimentel's anesthesia report for details regarding ASA classification, Mallampati score, and medications. INSTRUMENT USED: [id number] PROCEDURE DETAILS: After informed consent was obtained, the patient was brought to the GI suite, where she was placed on oxygen via nasal cannula and monitored with continuous pulse oximeter, telemetry, and blood pressure monitoring. A time-out was performed. Then, she was placed in a left lateral decubitus position and medications were administered for sedation. A bite block was placed. The standard EGD scope was inserted through the bite block and advanced under direct visualization to second portion of duodenum without difficulty. FINDINGS: 1. Normal-appearing duodenal bulb, first and second portion. 2. Normal-appearing pylorus. In the antrum, body and fundus of the stomach, the mucosa had scattered pale appearance suggestive of possibly ischemia. In between the scattered areas there was pink and normal-appearing mucosa. 3. In the in the distal part of the gastric body, there was an approximately 8 mm ulcer. The ulcer did not have well-demarcated margins. The ulcer base was not actively bleeding. There was no adherent clot or visible vessel noted. The ulcer was quite shallow itself. Multiple biopsies were obtained from the ulcer. 4. The scope was then withdrawn back to the GE junction which appeared normal at 40 cm. 5. Normal-appearing esophagus. IMPRESSION: 1. Approximately 8 mm to 9 mm ulcer in the gastric body. 2. Scattered pale mucosa throughout the entire portions of the antrum, body and fundus of the stomach suggestive of possible ischemia. RECOMMENDATIONS: 1. PPI . 2. Keep appointment with Interventional Radiology for possible treatment of celiac stenosis and superior mesenteric artery stenosis. 3. Avoid NSAIDs if able. 4. PPI . COMPLICATIONS: None. ESTIMATED BLOOD LOSS: Less than 5 mL. Brief History HPI obtained on 05/08 71yo FM with hx of breat ca, hemorrhoids, HTN, CAD s/y1xhptdz 16yrs ago, [employer], on DAPT, sent by in GI clinic due to concern for PE. Pt was seen by today for diarrhea, abdominal pain. Pt happened to show dyspnea with labored breathing in the clinic, SpO2 noted 100% on RA. Concern was also for possible mesenteric ischemic based on previous CT result, recommended further GI in the hospital. As per GI , pt had presumed pancreatitis and diverticulitis but beginning of January, Patient was given antibiotics for 12 days for treatment of this. The patient's CT scan of the abdomen and pelvis that was done with contrast on 02/04/2017 shows no evidence of diverticulitis or pancreatitis. The patient's lipase is unknown. Lipase was 128 on 01/24/2017. Patient started having profuse diarrhea 3 weeks ago, was 5-6 times per day, nonbloody. If the patient is nothing by mouth, she still has diarrhea. Patient was positive for C. difficile at that time was given Flagyl for 10 days. As per pt, pt suffered from episode of nausea, vomiting for 6month, once every 3 -4days, pt felt nauseated 15-30min after she took medicine in the morning, pt also is afraid of eating as whatever she ate, made her nauseated, only tolerated Activia, soft diet. pt started taking omeprazole for 3mo, didn't think it helps this problems. Since pt had c.diff cleared, pt has had normal BM 1-2per day, regular, non-bloody, non-mucus. After patient eats, pt experienced diffuse abdominal pain, uncomfortableness, which prevents her from eating heavy , large meals. pt lost over 20lbs used to 178 6moago, now 154lbs.lost 8lbs in the past month. Patient visited ED 5days with similar complaints, CT abd showed critical stenosis of SMA, celiac axis, but labs were unremarkable, pt is in the process of getting appointment with vascular surgeon at [place]. Patient has been on compliant to DAPT for 16yrs, no recent echo done, only does annual EKG, hasn't had any chest pain for long time. pt stated that today, pt was USOH, went to clinic, had similar episode of nausea , vomiting, which was followed by labored breathing, diaphoresis, but denied any SOB at baseline, cough, sputum, chest pain, MCCORD, orthopnea, PND, no rash, fever, chills, In ED, VS 95/45-107/56, BP usually runs low 100s per pt, HR72, RR14, afebrile, labs showed mild MINH, leukocytosis, lactate normal. CTPE negative for PE, MRA showed same findings of CT previously, critical stenosis in celiac axis, SMA Hospital Course Acute dx acute on chronic nausea,vomiting, significant wt loss, given CTA/MRA findings: critical stenosis of Celiac axis, SMA, classic sx of food aversion, it was likely due to chronic mesenteric ischemia given normal lactate. However, pt underwent EGD which showed 8mm to 9 mm ulcer in the gastric body, clean based, non-bleeding. PPI 40mg bid was recommended by . Given her underling chronic mesenteric ischemia, patient was scheduled to have mesenteric angiogram/angioplasty by IR on 05/12 2pm, scheduled as an outpt. Aspirin and Plavix were held until Friday, pt remained asymptomatic. Plan is to keep this appointment, it could possibly canceled as patient has dissected peptic ulcer disease, which needs to be treated prior to procedure as per . will coordinate with on Friday. patient will be informed accordingly. Patient was asked to follow-up with biopsy results with Dr. Jack in the clinic. Throughout the hospitalization, patient was relatively asymptomatic with PPI IV twice a day, tolerating small amount of food, deemed safe for discharge to home Episode of dyspnea, this was already resolved prior to ED, Chest CT unremarkable , SpO2 normal, there were no signs of cardiac ischemia, therefore it was thought to be from acute episode of vomiting MINH, POA, likely prerenal with dehydration, possible Contrast induced nephropathy from CTA 5days ago, resolved with IVF NS 100cc/hr, Chronic dx HTN, BP rather running low, held home BB, ACEI, plan is to decrease metoprolol to 12.5 mg twice a day. CAD s/p 2stents on DAPT, not active, EKG-no ischemic, first trop negative. hx of breast CA, stable Exam Vital Signs (Last) Date Time Temp Pulse Resp B/P Pulse Ox O2 Delivery O2 Flow Rate FiO2 05/10/17 18:33 86 16 100/46 96 Room Air 05/10/17 13:46 36.8 Exam NAD, comfortably laying down on the bed no JVD, MMM, no LAD RRR, nl s1, s2 no mrg CTAB, no w,c S,ND,NT,normoactive BS+ warm, no edema, pulses 2/2 Test 05/08/17 11:10 05/08/17 13:00 05/08/17 14:49 05/10/17 05:18 Lactic Acid Level 1.0mmol/L (0.4-2.0) Troponin T 0.010ug/L (0.0-0.011) Lipase 41U/L (13-60) Hold Urine Received (Received) Urine Color Straw (YELLOW) Urine Appearance Hazy (CLEAR,HAZY) Urine pH 7.0 (5.0-8.0) Urine Specific [place] 1.010 (1.003-1.035) Urine Protein 30mg/dL (NEG,TRACE) Urine Glucose (UA) Negativemg/dL (NEGATIVE) Urine Ketones Negativemg/dL (NEGATIVE) Urine Occult Blood Negative (NEGATIVE) Urine Nitrite Negative (NEGATIVE) Urine Bilirubin Negative (NEGATIVE) Urine Urobilinogen Normalmg/dL (NORMAL) Urine Leukocyte Esterase Negative (NEGATIVE) Urine RBC 0-2/hpf (0-2) Urine WBC 0-5/hpf (0-5) Urine Epithelial Cells Occasional/hpf (NONE-MOD) Urine Crystals None seen (NONE SEEN) Urine Bacteria Few/hpf (NONE-FEW) Urine Hyaline Casts Occasional/lpf (NONE) Urine Granular Casts None seen (NONE SEEN) Urine Waxy Casts None seen (NONE SEEN) Urine Red Blood Cell Casts None seen (NONE SEEN) Urine White Blood Cell Casts None seen (NONE SEEN) Urine Mucus None seen (None Seen) Urine Trichomonas None seen (NONE SEEN) Urine Yeast None (NONE SEEN) Urinalysis Comment None Urine Culture Reflexed Not indicated White Blood Count 9.5th/mm3 (3.8-10.1) Red Blood Count 4.24mil/mm3 (3.90-5.20) Hemoglobin 11.2g/dL (12.0-15.6) Hematocrit 36.2% (35.0-46.0) Mean Corpuscular Volume 85.4fL (81-100) Mean Corpuscular Hemoglobin 26.4pg (27.0-35.0) Mean Corpuscular Hemoglobin Concent 30.9% (32.0-37.0) Red Cell Distribution Width 13.5% (12.3-15.4) Platelet Count 395bil/L (150-400) Neutrophils (%) (Auto) 70.0% (40-74) Lymphocytes (%) (Auto) 19.7% (14-46) Monocytes (%) (Auto) 8.4% (4-12) Eosinophils (%) (Auto) 1.3% (0-5) Basophils (%) (Auto) 0.3% (0-3) Sodium Level 141mEq/L (134-144) Potassium Level 3.7mEq/L (3.5-5.2) Chloride Level 107mEq/L (97-108) Carbon Dioxide Level 17mmol/L (18-29) Blood Urea Nitrogen 8mg/dL (8-27) Creatinine 0.92mg/dL (0.57-1.00) Estimat Glomerular Filtration Rate 85mL/min (>59) Glucose Level 59mg/dL (60-99) Calcium Level 9.0mg/dL (8.5-10.1) Phosphorus Level 3.0mg/dL (2.5-4.9) Magnesium Level 1.7mg/dL (1.6-2.6) Total Bilirubin 0.2mg/dL (0.0-1.2) Aspartate Amino Transf (AST/SGOT) 22U/L (0-50) Alanine Aminotransferase (ALT/SGPT) 16U/L (0-32) Alkaline Phosphatase 117U/L (25-165) Total Protein 6.8g/dL (6.4-8.4) Albumin 3.0g/dL (3.4-5.0) Discharge Medications Discharge Medications Aripiprazole (Aripiprazole) 2 Mg Tablet 2 MG PO DAILY (Reported) Aspirin (Aspirin) 81 Mg Tablet 81 MG PO DAILY (Reported) Calcium Carbonate/Vitamin D3 (Calcium + Vitamin D Tablet) 1 Each Tablet 1 EACH PO BID (Reported) Cholecalciferol (Vitamin D3) (Vitamin D) 1,000 Unit Tablet 2,000 UNIT PO DAILY ( Reported) Clopidogrel Bisulfate (Plavix) 75 Mg Tablet 75 MG PO DAILY (Reported) Cranberry Extract (Cranberry) 300 Mg Tablet 300 MG PO DAILY (Reported) Docusate Sodium (Colace) 100 Mg Capsule 200 MG PO HS (Reported) Duloxetine (Duloxetine) 60 Mg Capsule.dr 60 MG PO DAILY (Reported) Ferrous Sulfate (Iron) 325 Mg Capsule.er 325 MG PO DAILY (Reported) Gluc 2Kcl/Chondr/Rosa Hy/Hy AC (Glucosamine & Chondroitin Cap) 1 Each Capsule 1 EACH PO BID (Reported) Lactobacillus Acidophilus (Probiotic) 1 Each Capsule 1 EACH PO DAILY (Reported) Metoprolol Tartrate (Metoprolol Tartrate) 25 Mg Tablet 12.5 MG PO BID Prescribed by: HENRI BEGUM MD [place]-3 Fatty Acids (Fish Oil) 500 Mg Capsule. 1,000 MG PO DAILY (Reported) Omeprazole (Omeprazole) 20 Mg Capsule.dr 20 MG PO DAILY (Reported) Pantoprazole DR (Pantoprazole DR) 40 Mg Tablet.dr 40 MG PO BID Prescribed by: HENRI BEGUM MD Sennosides (Senna) 8.6 Mg Tablet 8.6 MG PO HS (Reported) Simvastatin (Simvastatin) 40 Mg Tablet 40 MG PO HS (Reported) Sucralfate (Sucralfate) 1 Gm Tablet 1 GM PO TID (Reported) Triamcinolone Acet (Triamcinolone Acetonide Cream) 1 Applic/0.25 Gm Cr 1 APPLIC EXT WEEKLY (Reported) Yeast (Landaverde's Yeast) 680 Mg Tablet 680 MG PO DAILY (Reported) As needed Acetaminophen (Acetaminophen) 500 Mg Capsule 500 MG PO Q6H PRN PRN For Pain ( Reported) Diazepam (Diazepam) 5 Mg Tablet 5 MG PO HS PRN PRN For Anxiety (Reported) oxyCODONE (oxyCODONE) 10 Mg Tablet 10 MG PO Q6H PRN PRN For Pain (Reported) Additional med instructions Please note that your blood regimen Enalapril and Metoprolol briefly held due to persistent low blood pressure Followup Plan Disposition: Home Discharge Diet: Other (small, frequent meals) Discharge Activity: No restrictions Patient Instructions You were hospitalized with symptoms concerning for mesenteric ischemia from narrowing of your blood vessels in your gut. -Y-o-u- -h-i-y-a-i-y-e-n-t- -g-l-h-o-r-b-o-p-y--,- -w-h-i-c-h- -d-i-d-n--'--t- -y-c-k-e-a-l- -a-n-y- -e-e-h-j-g-p-o-g-y- -o-n- -y-o-u-r- -y-n-n-m-a-c-h- -a-n-d- -u-k-h-u-q-y-g-u-s-.- Please note that we arranged the intervention for your narrowed arteries in your gut, with on Friday, 05/12 at 2pm, scheduled as an outpt. Please DO NOT EAT after midnight of 05/11. Please follow up with your primary doctor in 2weeks Follow-up with PCP in: 2 weeks Time spent 65 minutes Henri Begum MD May 11, 2017 11:10
== END 2017-05-10 20:30 | disposition home or self-care (01) | DRG 394 ==
LOC: SED 10:42 → OSC 14:55 → OBSVTOIN 14:55
PROVIDERS: ADMIT Internal Medicine; ATTEND Internal Medicine
PROC: 0DB68ZX Excision of Stomach, Via Natural or Artificial Opening Endoscopic, Diagnostic (ICD-10-PCS; principal; 2017-05-10 21:00)
DX: K55.059 Acute (reversible) ischemia of intestine, part and extent unspecified (principal); I77.4 Celiac artery compression syndrome; N17.8 Other acute kidney failure; K25.9 Gastric ulcer, unspecified as acute or chronic, without hemorrhage or perforation; Z79.82 Long term (current) use of aspirin; Z87.891 Personal history of nicotine dependence; Z95.5 Presence of coronary angioplasty implant and graft; I25.2 Old myocardial infarction; I25.10 Atherosclerotic heart disease of native coronary artery without angina pectoris; Z85.3 Personal history of malignant neoplasm of breast; Z90.11 Acquired absence of right breast and nipple; I10 Essential (primary) hypertension; N14.1 Nephropathy induced by other drugs, medicaments and biological substances; T50.8X5A Adverse effect of diagnostic agents, initial encounter; K55.069 Acute infarction of intestine, part and extent unspecified

== ENCOUNTER 2017-05-12 08:12 | Day surgery (SDC) | payer MEDICARE, OTHER ==
[~2017-05-12] VITALS: Ht 170.2 cm; Wt 68.2 kg
[~2017-05-12 08:12] MED LIST changes: +ACET500C49 PO; +ARIP2TAB11 PO; +DOCU-41 PO; +FERR325C PO; +METO25TA6 PO; +OMEP20CA11 PO; +PANT40TA3 PO; +SENN-133 PO; +SUCR1TAB PO
[2017-05-12 12:39] VITALS: BP 119/48; PULSE 75; RESP 20; O2SAT 97
--- NOTE | 2017-05-12 13:00 | NUR ---
[facility] ADMIT 72 YR OLD FEMALE ADMITTED TO [facility] FOR ANGIOGRAM TODAY AT 1200. IVS PER IVT, QUESTIONS ANSWERED, AND MED REC COMPLETED. PT WAS JUST DISCHARGED FROM HOSPITAL ON 05/10/17. PT HAS BEEN NPO SINCE 05/11/17 AT [facility] AND HAS HELD HER PLAVIX AND ASPIRIN.
--- NOTE | 2017-05-12 16:23 | NUR ---
JUANA PROCEDURE CANCELED. DR VÁZQUEZ DISCUSSED REASONS WITH PT AND . PT IS RESCHEDULED FOR April AND ALL DISCHARGE INSTRUCTIONS WERE REVIEWED WITH PT INCLUDING NPO STATUS, CHECK IN TIME, AND NEED TO KEEP HOLDING PLAVIX AND ASA. IVS AND BLANCO WERE DISCONTINUED AND PT WAS DISCHARGED IN STABLE CONDITION WITH .
== END 2017-05-12 23:59 | disposition home or self-care (01) ==
LOC: SPI 08:12
PROVIDERS: ATTEND Radiology Vascular & Interventional Radiology
DX: R10.9 Unspecified abdominal pain (principal); Z53.9 Procedure and treatment not carried out, unspecified reason

== ENCOUNTER 2017-05-14 08:14 | Day surgery (SDC) | payer MEDICARE, OTHER ==
[~2017-05-14] VITALS: Ht 170.2 cm; Wt 69.0 kg
[2017-05-14] VITALS (29 sets, daily range): BP systolic 83–133; BP diastolic 34–57; PULSE 53–75; RESP 10–18; O2SAT 85–100
[~2017-05-14 08:14] MED LIST changes: -ACET-2766 PO; -ANAS1TAB7 PO; -CARB15DR78 OP; -ENAL10TA PO; -METO50TA3 PO; -ONDA4TAB9 PO; -PIRO20CA2 PO; -POLY17PO2 PO; -RANI150T11 PO; -SENN1TAB90 PO; -iron PO; -stool softner PO
[2017-05-14] MEDS ORDERED: Heparin 10,000 Unit/1,000 mL NS Premix IV ONE (11:20)
[2017-05-14] MEDS ORDERED: fentaNYL-PF 50 mCg/mL 2 mL Inj ONE ×2 (11:49→12:56)
[2017-05-14] MEDS ORDERED: Heparin 1,000 Unit/mL 10 mL Inj ONE (12:19)
--- NOTE | 2017-05-14 12:20 | NUR ---
[facility] Patient admitted to [facility] bed 7 at 1000. at bedside. Patient denies pain. HL X 2 placed. Labs available from previous admit. Consent confirmed. Juarez 16 persian placed without problems. History and medications reviewed. Pre-procedure teaching done and questions answered.
[2017-05-14] MEDS ORDERED: Ondansetron 2 mg/mL 2 mL Inj ONE (12:37)
[2017-05-14] MEDS ORDERED: ProchlorPERazine 5 mg/mL 2 mL Inj IVPUSH ONE (13:05)
--- NOTE | 2017-05-14 15:18 | DRSVH ---
PROCEDURE: SDET RENAL OR VISCERAL ARTERY INDICATIONS: Mesenteric ischemia COMPARISON: None. Technique: 1. Conscious sedation for 90 minutes. 2. Retrograde access of the right common femoral artery. 3. Mesenteric arteriogram. 4. Celiac axis arteriogram. 5. 11 angioplasty of the origin of the celiac axis. 6. Completion arteriogram. The indications, alternatives, benefits, risks, and complications of the procedure were explained to the patient.. Informed written consent was obtained and placed in the chart. The patient was yunier t to the angiography suite, and conscious sedation was administered intravenously by group home staff, while continuous cardiorespiratory monitoring was performed. Maximum sterile barrier technique was employed per standard protocol, including hand hygiene, cap, ma sk, sterile gown and gloves, and 2% chlorhexidine. One percent lidocaine was used to anesthetize the skin over the right common femoral artery. Using a micropuncture kit, the right common femoral artery was accessed in a retrograde fashion. The micropuncture sheath was exchanged for a 5 [place] sheath. A pigtail catheter was advanced into the abdominal aorta. Aortogram was performed. Next, the celiac a xis was cannulated with a Sos catheter and Glidewire. The Glidewire was removed and exchanged for an 018 wire. The catheter was removed. Balloon angioplasty was performed for a focal high-grade stenosis at the origin of the celiac axis with a 4 mm x 20 mm high-pressure balloon. Completion aortogram was performed. Multiple attempts are undertaken to cannulate the occluded SMA origin without success. The balloon and wire were removed, and an external closure device was deployed within the right commo n femoral artery. FINDINGS: Initial arteriogram demonstrates a focal high-grade stenosis of the celiac axis. Completio n arteriogram demonstrates partial resolution of the focal high-grade stenosis. AP arteriogram demons trates occlusion of the origin of the SMA with retrograde flow through the SMA likely via the celiac axis. IMPRESSION: 1. Partial resolution of the high-grade stenosis at the origin of the celiac axis status post angiopl asty. If the patient continues to describe symptoms of mesenteric ischemia, repeat angiogram and clement oplasty could be undertaken with a larger caliber balloon. Of note, if further angioplasty is perform ed, accessed via the left radial approach is recommended given the steep angle at the celiac axis fro m the inferior approach. 2. 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 Attempts to cannulate and revascularize the SMA were unsuccess ful. Dictated by: Anisa Hooker M.D. on 05/14/2017 at 14:02 Approved by: Anisa Hooker M.D. on 05/14/2017 at 15:15
--- NOTE | 2017-05-14 17:09 | NUR ---
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 Right groin angioseal without bleeding or hematoma. Pedal pulses present. Initially patient deeply asleep but wakes to voice and stimulus and BP into the 80's systolic. NS bolus 250 given. When patient awake taking PO, prior to discharge ambulatory, gutierrez catheter removed and patient void in bathroom. Instructions reviewed with patient and , written information given and questions answered. Home with at 1715.
== END 2017-05-14 23:59 | disposition home or self-care (01) ==
LOC: SOUO 08:14 → EDSTATUS 08:14 → SOUO 23:59
PROVIDERS: ATTEND Radiology Vascular & Interventional Radiology
DX: I77.4 Celiac artery compression syndrome (principal); K55.059 Acute (reversible) ischemia of intestine, part and extent unspecified
CPT/HCPCS: 36245; 37246; 75726; 99152; 99153; C1725; C1760; C1769; J1644; J2250; J2405; J3010; Q9967

== ENCOUNTER 2017-06-23 11:18 | Inpatient (IN) | payer MEDICARE, OTHER ==
[~2017-06-23] VITALS: Ht 170.2 cm; Wt 68.9 kg
[~2017-06-23 11:18] MED LIST changes: +RANI150T11 PO; +SUCR1TAB30 PO
[2017-06-23 11:19] VITALS: BP 145/78; PULSE 80; RESP 15; O2SAT 97
[2017-06-23] MEDS ORDERED: CRAN200C2 PO (11:40)
[2017-06-23] MEDS ORDERED: ENAL10TA PO (11:40)
[2017-06-23] MEDS ORDERED: ARIP2TAB10 PO (11:40)
[2017-06-23] MEDS ORDERED: METO50TA3 PO (11:40)
[2017-06-23] MEDS ORDERED: PANT40TA3 PO (11:40)
[2017-06-23] MEDS ORDERED: DULO60CA42 PO (11:40)
--- NOTE | 2017-06-23 11:54 | ED.REPORT ---
HPI-Abd Pain F 40 and Over Date of Service Jun 23, 2017 ED Provider: Sada Duenas MD Patient is a 72 year old female with a history of stomach ulcer, VT, hypertension and right breast cancer who presents to the ED complaining of continuing and worsening abdominal pain. Associated symptoms include nausea, vomiting, fever, chills, constipation and bloody stool that she thinks is from her hemorrhoids. Patient also reports having dark urine but states that she was recently diagnosed with an UTI and has been taking antibiotics. She denies diarrhea or hematochezia. The patient reports that she has been having pain and cramping when she tries to eat and losing weight. This morning when she tried to eat, she was unable to keep it down. She tried taking her normal 10mg of Oxycodone this morning for pain but was unable to keep it down. Patient reports that her pain has been getting progressively worse over the past 4 days. Patient was seen [address] Vaughn, vascular surgeon, who recommended the patient have another scope to ensure that the stomach ulcer was improving. 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 Nursing Notes Stated Complaint: ABDOMINAL PAIN Chief Complaint: Female Abdominal Pain Nursing Notes Reviewed: Yes Allergies: Coded Allergies: procaine (Verified Adverse Reaction, Intermediate, nausea or diarrhea, ) Scheduled Aripiprazole (Abilify) 2 Mg Tablet 2 MG PO DAILY Aspirin (Aspirin) 81 Mg Tablet 81 MG PO DAILY Calcium Carbonate/Vitamin D3 (Calcium + Vitamin D Tablet) 1 Each Tablet 1 EACH PO BID Cholecalciferol (Vitamin D3) (Vitamin D) 1,000 Unit Tablet 2,000 UNIT PO BID Clopidogrel Bisulfate (Plavix) 75 Mg Tablet 75 MG PO DAILY Cranberry Extract (Cranberry) 200 Mg Capsule 200 MG PO DAILY Duloxetine (Cymbalta) 60 Mg Capsule.dr 60 MG PO DAILY Enalapril Maleate (Enalapril Maleate) 10 Mg Tablet 10 MG PO DAILY Ferrous Sulfate (Iron) 325 Mg Capsule.er 325 MG PO DAILY Gluc 2Kcl/Chondr/Rosa Hy/Hy AC (Glucosamine & Chondroitin Cap) 1 Each Capsule 1 EACH PO BID Lactobacillus Acidophilus (Probiotic) 1 Each Capsule 1 EACH PO DAILY Metoprolol Tartrate (Metoprolol Tartrate) 50 Mg Tablet 50 MG PO BID Omeprazole (Omeprazole) 20 Mg Capsule.dr 20 MG PO DAILY Pantoprazole DR (Pantoprazole DR) 40 Mg Tablet.dr 40 MG PO DAILY Ranitidine (Zantac) 150 Mg Tablet 150 MG PO BID Simvastatin (Simvastatin) 40 Mg Tablet 40 MG PO HS Sucralfate (Sucralfate) 1 Gm Tablet 1 GM PO TID Sucralfate (Carafate) 1 Gm Tablet 1 GM PO QID Scheduled PRN Acetaminophen (Acetaminophen) 500 Mg Capsule 500 MG PO Q6H PRN PRN For Pain Diazepam (Diazepam) 5 Mg Tablet 5 MG PO BID PRN PRN For Anxiety oxyCODONE (oxyCODONE) 10 Mg Tablet 10 MG PO Q4-6HR PRN PRN For Pain General Time Seen by MD: 11:52 Chief Complaint Abdominal pain Hx Obtained From: Patient Arrived By: Walk-in Sudden in Onset?: No Onset Occurred: More than a week ago... 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 Diff [place] Diverticulitis/Pancreatitis Stomach ulcer Reports: Hypertension Past Surgical History Breast lumpectomy and sentinel lymph node biopsy Cardiac stents x2 Smoking History Former Smoker Social History Alcohol Use: Denies alcohol use Drug Use: Denies drug use Other Social History: Good social support, Occupation lives with 1 story house, 5th wheel trailer 05/08/2017 Ambulatory Status Independent Review of Systems Constitutional: Reports: Chills, Fever Respiratory: Denies: Non-productive cough, Shortness of breath GI: Reports: Abdominal pain, Bloody/tarry stool, Constipation, Nausea, Vomiting , Denies: Diarrhea, Hematochezia Complete sys rev & neg: except as marked. Endocrine: Reports: Weight loss Skin: Denies Itching, Denies Rash Neurologic: Denies: Numbness, Weakness Physical Exam Vital Signs Vital Signs (First) Date Time Temp Pulse Resp B/P Pulse Ox O2 Delivery O2 Flow Rate FiO2 06/23/17 11:19 36.9 80 15 145/78 97 Room Air Initial VS: Reviewed General/Constitutional: Awake, Alert Respiratory / Chest: Atraumatic, Breath sounds NL, Breath sounds = bilat, No respiratory distress Cardiovascular: Heart rate NL, Regular rhythm, Heart sounds NL Abdomen: Atraumatic, Soft, No guarding, No rebound, BS normoactive Tenderness/Guarding/Rebound: Positive: Tender diffuse bruising on abdominal wall that the patient reports is from using pruning scissors while gardening Back: Atraumatic, Non-tender Head / Eyes: Atraumatic, Normocephalic, PERRL, EOMI Skin: Atraumatic, Color NL, No rash, Warm, Dry Neurologic: Oriented X3, Speech NL, No motor deficits, No sensory deficits Psychiatric: Affect NL, Mood NL Interpretation & Diagnostics Lab Results Interpretation Result Diagram: 06/23/17 1255 06/23/17 1255 Test 06/23/17 12:55 06/23/17 13:00 White Blood Count 18.1th/mm3 (3.8-10.1) Red Blood Count 4.40mil/mm3 (3.90-5.20) Hemoglobin 11.2g/dL (12.0-15.6) Hematocrit 36.2% (35.0-46.0) Mean Corpuscular Volume 82.3fL (81-100) Mean Corpuscular Hemoglobin 25.5pg (27.0-35.0) Mean Corpuscular Hemoglobin Concent 30.9% (32.0-37.0) Red Cell Distribution Width 14.0% (12.3-15.4) Platelet Count 543bil/L (150-400) Neutrophils (%) (Auto) 83.0% (40-74) Lymphocytes (%) (Auto) 8.0% (14-46) Monocytes (%) (Auto) 8.3% (4-12) Eosinophils (%) (Auto) 0.3% (0-5) Basophils (%) (Auto) 0.3% (0-3) Sodium Level 138mEq/L (134-144) Potassium Level 3.0mEq/L (3.5-5.2) Chloride Level 99mEq/L (97-108) Carbon Dioxide Level 20mmol/L (18-29) Blood Urea Nitrogen 10mg/dL (8-27) Creatinine 1.09mg/dL (0.57-1.00) Estimat Glomerular Filtration Rate 70mL/min (>59) Glucose Level 114mg/dL (60-99) Calcium Level 9.5mg/dL (8.5-10.1) Magnesium Level 1.7mg/dL (1.6-2.6) Total Bilirubin 0.2mg/dL (0.0-1.2) Aspartate Amino Transf (AST/SGOT) 15U/L (0-50) Alanine Aminotransferase (ALT/SGPT) 11U/L (0-32) Alkaline Phosphatase 159U/L (25-165) Total Protein 8.1g/dL (6.4-8.4) Albumin 3.4g/dL (3.4-5.0) Lipase 45U/L (13-60) Lactic Acid Level 1.5mmol/L (0.4-2.0) CT Abd / Pelvis Interpretation IMPRESSION: 1. Partially visualized focal airspace opacities at the bases right middle lobe suspicious for lobar pneumonia. Chest film or CT the chest may be helpful to further characterize findings if clinically indicated. 2. 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 The patient complains of recurrent symptoms consistent with mesenteric ischemia, repeat angioplasty may be necessary. If angioplasty is undertaken, access through the upper extremity is recommended as described on the report from the prior angiogram. 3. No findings to suggest acute mesenteric ischemia or bowel infarct. 4. No other acute intra-abdominal findings. These findings were discussed with Dr. Duenas at 2:45 PM on 06/23/17. Dictated by: Anisa Hooker M.D. on 06/23/2017 at 14:33 Re-Eval/Medical Decision Med Decision/Clinical Course Discussed findings of a left middle lobe pneumonia as the cause of her worsening abdominal pain. No evidence of severe gastric abnormality on CT scan and no evidence of bowel ischemia. 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 At this point symptoms are much more likely due to the left lower lobe pneumonia. She is artery received a initial dose of Zosyn thinking that her white blood cell count was from an abdominal source. This is certainly an adequate start for pneumonia coverage and will leave additional antibiotic choices to the hospitalist service. Re-Evaluation/Progress #1: Time of Eval: 14:10 Re-Evaluation/Progress Note: Labs returned and patient has an elevated white blood count. Cause for concern of infection, plan to start Zoysn. Stil awaiting CT Re-Evaluation/Progress #2: Time of Eval: 15:03 Patient Status: Mild relief Re-Evaluation/Progress Note: Discussed results and plan for admit. Patient understands and agrees to plan. Re-Evaluation/Progress #3: Time of Eval: 15:20 Re-Evaluation/Progress Note: discussed admit and LLpneumonia findings Consultation #1: Call Returned at: 12:12 Note: Consult with Dr. Vaughn, vascular surgeon, who recommends the patient have a CTA of her abdomen and pelvis. Consultation #2: Referral / Consult Name: Anisa Hooker MD Consulted With: On-call physician (Radiology) Call Returned at: 12:45 Note: Consult with Dr. Cummins, who recommends a portal venous phase CTA Consultation #3: Consulted With: Hospitalist Call Returned at: 15:36 Note: Dr Borjas Will admit Counseled Regarding: Diagnosis, Lab results, Need for admission Discharge & Departure Primary Impression: Pneumonia Pneumonia type: due to unspecified organism Laterality: right Lung location : unspecified part of lung Qualified Code: J18.9 - Pneumonia, unspecified organism Additional Impressions: Hypokalemia SMA stenosis Abdominal pain Ruled Out: Ischemia, bowel, GI bleed Disposition: ADMITTED TO HOSPITAL Discharge Condition All VS Reviewed: Yes Condition: Stable Referrals: Eileen Narvaez PA-C (PCP) Jason Attestation Portions of this note were transcribed by Dalia Fam. I, Dr. Duenas personally performed the history, physical exam and medical decision-making; I reviewed and confirmed the accuracy of the information in the transcribed note. Signed by: Jason Saba, 06/23/17 copies to: Eileen Narvaez PA-C, Shawna L MD Jun 23, 2017 11:54 Toma Fam Jun 23, 2017 12:13
[2017-06-23] MEDS ORDERED: 0.9% Sodium Chloride 1,000 ML IV ONE (12:10)
[2017-06-23] MEDS ORDERED: HYDROmorphone 1 mg/mL Inj IM ONE (12:10)
[2017-06-23] MEDS ORDERED: HYDROmorphone 1 mg/mL Inj IM PRN (12:10)
[2017-06-23] MEDS ORDERED: Ondansetron 2 mg/mL 2 mL Inj IVPUSH ONE (12:10)
[2017-06-23 13:17] LABS: BASOPHILS % (AUTO) 0.3 % (0-3); EOSINOPHILS % (AUTO) 0.3 % (0-5); MONOCYTES % (AUTO) 8.3 % (4-12); Mean Corpuscular Hemoglobin 25.5 pg (27.0-35.0); Mean Corpuscular Volume 82.3 fL (81-100); Platelet Count 543 bil/L (150-400)
[2017-06-23 13:41] LABS: Magnesium 1.7 mg/dL (1.6-2.6)
[2017-06-23] MEDS ORDERED: Piperacillin-Tazo 3.375 Gm Inj 3.375 GM in Dextrose 5% Minibag Plus 50 ML IV ONE (14:10)
--- NOTE | 2017-06-23 15:10 | DRSVH ---
PROCEDURE: ANGIO ABD/PELVIS W/CON INDICATIONS: portal venous phase per [place] TECHNIQUE: After the administration of intravenous contrast, 2 and 5 mm sections acquired from the diaphragm to the iliac crests. 3-dimensional maximum intensity projection (MIP) coronal and sagittal reformats, a nd/or 3-dimensional volume rendering reformatting was then performed. For radiation dose reduction, the following was used: automated exposure control. COMPARISON: [facility], CT, CT ABDOMEN PELVIS WO CONTRAST, 02/04/2017, 10:30 AM. [facility], CT, CT ANGIO CHEST PE, 05/08/2017, 12:53. Merged With [facility], MR, MR ANGIO ABD , 05/08/2017, 12:15. FINDINGS: Image quality: Excellent. Extravascular tissues: Patchy air space opacities are partially visualized at the base of the right m iddle lobe. The lungs are otherwise clear. No pleural effusion or pneumothorax. Heart size is normal. The liver is normal in size. The liver demonstrates overall normal enhancement.. Probable focal fat is present at the falciform ligament. The spleen demonstrates normal size and enhancement. Gallbladde r is unremarkable. Biliary system is non dilated. Pancreas enhances normally. No adrenal nodules. Kidneys are normal in size and enhancement, without hydronephrosis. Non-opacified bowel loops demon strate normal wall thickness and caliber. No free fluid or air. No retroperitoneal or mesenteric ad enopathy. No ventral hernias. No suspicious bony abnormalities. No vertebral body compression frac tures. Abdominal aorta: The aorta there is a normal caliber throughout. There are scattered atheromatous jeremias cifications present. No aneurysmal dilatation. Mesenteric arteries: A focal moderate to high-grade stenosis is present just distal to the origin of the celiac axis. This is similar in extent to the MRA dated 05/08/17. The SMA is occluded at the origi n and reconstituted via collaterals. The origin of the MISSY is either occluded or highly stenotic and the more distal MISSY is opacified suggesting reconstitution via collaterals if the origin is occluded. Renal arteries: Atheromatous calcification is present at the origin of the bilateral renal arteries w hich are otherwise patent. IMPRESSION: 1. Partially visualized focal airspace opacities at the bases right middle lobe suspicious for lobar pneumonia. Chest film or CT the chest may be helpful to further characterize findings if clinically i ndicated. 2. 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 The patient complains of recurrent symptoms consistent wit h mesenteric ischemia, repeat angioplasty may be necessary. If angioplasty is undertaken, access thro ugh the upper extremity is recommended as described on the report from the prior angiogram. 3. No findings to suggest acute mesenteric ischemia or bowel infarct. 4. No other acute intra-abdominal findings. These findings were discussed with Dr. Duenas at 2:45 PM on 06/23/17. Dictated by: Anisa Hooker M.D. on 06/23/2017 at 14:33 Approved by: Anisa Hooker M.D. on 06/23/2017 at 15:08
[2017-06-23] MEDS ORDERED: Alum-Mag Hydrox-Simeth 30 mL Suspension PO PRN (15:35)
[2017-06-23] MEDS ORDERED: Polyethylene Glycol (PEG) 17 Gm Powder PO PRN (15:35)
[2017-06-23] MEDS ORDERED: KCl 40 mEq/D5W 500 mL 40 MEQ in IV Premix 1 EACH IV ONE (15:40)
[2017-06-23] MEDS ORDERED: METO25TA6 PO (17:54)
[2017-06-23 18:02] VITALS: BP 114/55; PULSE 84; RESP 17; O2SAT 90
[2017-06-23 19:36] VITALS: BP 135/74; PULSE 86; RESP 16; O2SAT 92
--- NOTE | 2017-06-23 19:36 | PCM.HPMED ---
Subjective Date of Service Jun 23, 2017 Primary Provider: Admitting Physician: Elias Borjas MD Primary Care Physician: Eileen Narvaez PA-C Attending Physician: Elias Borjas MD Chief Complaint: Abdominal pain History of Present Illness: Patient is a 71-year-old female with history of breast cancer 7 years ago finished treatment with anti-estrogen therapy ands/p lumpectomy, he states that she had radiation therapy. The patient also reports CAD s/p 2 cardiac stents 16 years ago, high-grade stenosis of the celiac trunk on MRI angiogram 05/08/17 with reported angioplasty on 05/14/17 who presents emergency department today due to ongoing epigastric abdominal pain with nausea and vomiting postprandially. Patient states that this is somewhat of her baseline over this last year and has been worsening over the last 3 weeks. She denies ongoing fever or chills, chest pain or shortness of breath. Due to her prolonged vomiting the patient is more or less anorexic and has lost a total of 35 pounds. Patient denies hematemesis, hematochezia, or melena, although it is noted that the patient takes iron so her stools are usually dark. Patient underwent CT angiogram of the abdomen and pelvis in the emergency department which showed a similar high-grade stenosis of the celiac trunk. On that CT was also identified the patient has a right middle lobe consolidation. There are no findings consistent with an acute infarct of the bowel. Blood work reveals a leukocytosis of around 18,000 but there is no elevation of lactic acid. The patient was given a dose of Zosyn in the emergency room and was admitted to the hospitalist service for further evaluation and treatment. Review of Systems: General: The patient appears comfortable at present time and in no apparent distress. Her pain is well controlled at present time. The patient has no fever, chills or diaphoresis. She has no cough. HEENT: Patient has a frontal headache, patient has no diplopia, patient has no changes in vision. Patient has no problems with their ears, nose or throat. Patient has upper dentures which she wears. She is unable to wear her lower dentures due to the pain of her left mandible due to previous osteomyelitis. However, the patient had treatment for osteomyelitis of the jaw years ago by an infectious disease doctor in [place]. She continues have chronic pain in that area. Patient has no pharyngitis or history of thrush. Neck: Patient has no stiffness in the neck. Patient has no lymphadenopathy. Patient has no other problems with their neck. Pulmonary: Patient has no shortness of breath, no cough, no expectoration of sputum. Patient has no pleurisy. Patient has no chest pain. Patient has no history of asthma or COPD. Cardiovascular: Patient has no chest pain. Patient has no history of heart murmur. Patient has no palpitations. Patient has no history of myocardial infarction. Patient has a history of coronary artery disease, the patient had 2 previous stents placed. Gastrointestinal: Patient has no history of hepatitis A, B or C. Patient has no history of peptic ulcer disease. Patient has no history of gastroesophageal reflux disease. Patient has no history of nausea, vomiting, or diarrhea. Patient has no history of hematemesis, hematochezia, or melena. Patient has no history of colitis. Renal: Patient has no history of kidney disease. No history of kidney stones. Genitourinary: Patient has no history of dysuria, frequency, or incontinence. Patient has no previous history of genitourinary problems. Musculoskeletal: Patient has no history of muscular skeletal problems, other than osteomyelitis of the left mandible. Neurologic: Patient has no history of stroke, no history of seizure, no history of TIA. Psychiatric: Patient has no history of psychiatric problems. The remainder of the entire review of systems was reviewed with patient and is as mentioned above otherwise negative. Allergies Coded Allergies: Penicillins (Verified Allergy, Intermediate, Nausea,Vomiting, 06/23/17) amoxicillin (Verified Allergy, Intermediate, Diarrhea, 06/23/17) doxycycline (Verified Allergy, Intermediate, Nausea,Vomiting, 06/23/17) atenolol (Verified Allergy, Unknown, 06/23/17) clindamycin (Verified Allergy, Unknown, Nausea,Vomiting, 06/23/17) procaine (Verified Adverse Reaction, Intermediate, nausea or diarrhea, ) Home Medications Aripiprazole (Abilify) 2 Mg Tablet 2 MG PO DAILY Aspirin (Aspirin) 81 Mg Tablet 81 MG PO DAILY Calcium Carbonate/Vitamin D3 (Calcium + Vitamin D Tablet) 1 Each Tablet 1 EACH PO BID Cholecalciferol (Vitamin D3) (Vitamin D) 1,000 Unit Tablet 2,000 UNIT PO BID Clopidogrel Bisulfate (Plavix) 75 Mg Tablet 75 MG PO DAILY Cranberry Extract (Cranberry) 200 Mg Capsule 200 MG PO DAILY Duloxetine (Cymbalta) 60 Mg Capsule.dr 60 MG PO DAILY Enalapril Maleate (Enalapril Maleate) 10 Mg Tablet 10 MG PO DAILY Ferrous Sulfate (Iron) 325 Mg Capsule.er 325 MG PO DAILY Gluc 2Kcl/Chondr/Rosa Hy/Hy AC (Glucosamine & Chondroitin Cap) 1 Each Capsule 1 EACH PO BID Lactobacillus Acidophilus (Probiotic) 1 Each Capsule 1 EACH PO DAILY Metoprolol Tartrate (Metoprolol Tartrate) 50 Mg Tablet 50 MG PO BID Omeprazole (Omeprazole) 20 Mg Capsule.dr 20 MG PO DAILY Pantoprazole DR (Pantoprazole DR) 40 Mg Tablet.dr 40 MG PO DAILY Ranitidine (Zantac) 150 Mg Tablet 150 MG PO BID Simvastatin (Simvastatin) 40 Mg Tablet 40 MG PO HS Sucralfate (Sucralfate) 1 Gm Tablet 1 GM PO TID Sucralfate (Carafate) 1 Gm Tablet 1 GM PO QID Acetaminophen (Acetaminophen) 500 Mg Capsule 500 MG PO Q6H PRN PRN For Pain Diazepam (Diazepam) 5 Mg Tablet 5 MG PO BID PRN PRN For Anxiety oxyCODONE (oxyCODONE) 10 Mg Tablet 10 MG PO Q4-6HR PRN PRN For Pain PMH Osteomyelitis of the left mandible treated 11 years ago by an infectious disease doctor in [place]. Treated 1 cm low grade infiltrating ductal carcinoma of the right breast s/p lumpectomy 2010, radiation therapy and hormonal therapy. C. Diff colitis which she states is "cured". 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 Surgical History Bilateral cataract surgery Breast lumpectomy and sentinel lymph node biopsy which was negative. Cardiac stents x2 Appendectomy which went along with a right salpingo-oophorectomy. Spinal surgery at the level of L3. The patient states they "scraped it". Carpal tunnel surgery Family History No history of heart disease Social History Hx Alcohol Use: No Hx Substance Use: No Hx Tobacco Use: Yes (quit after dx of breast CA in 2010) Smoking Status: Former Smoker Living Arrangement: with Family Additional Information The patient was born in [place], [place]. She went to [employer] and graduated. 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 Patient smoked up until being diagnosed with breast cancer. She quit probably 7 years ago. Patient started smoking at the age of 19 for a total approximate 46 pack years. She denies any history of alcohol use. She has been for 52 years. Her live in a trailer on the [facility] in [place]. Exam Vital Signs Vital Sign - Last Date Time Temp Pulse Resp B/P Pulse Ox O2 Delivery O2 Flow Rate FiO2 06/23/17 18:02 36.7 84 17 114/55 90 Room Air Exam General: Uncomfortable age-appropriate female HEENT: PERRLA, EOMI, nonicteric, membranes moist; no conjunctival pallor Lymph: No lymphadenopathy Cardio: Regular rate and rhythm no murmurs rubs or gallops Respiratory: CTA bilaterally, no wheezes, no crackles Abdomen: Soft, positive bowel sounds, tender in the epigastrium Extremities: No edema, 5/5 strength, sensation intact Psych: Appropriate mood and affect Neuro: CN II through XII grossly intact, sensation intact throughout Skin: No rash Lab and Diagnostics Result Diagram: 06/23/17 1255 06/23/17 1255 X-Rays, CTs and MRIs CT angiogram abdomen and pelvis 1. Partially visualized focal airspace opacities at the bases right middle lobe suspicious for lobar pneumonia. Chest film or CT the chest may be helpful to further characterize findings if clinically indicated 2. 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 The patient complains of recurrent symptoms consistent with mesenteric ischemia, repeat angioplasty may be necessary. If angioplasty is undertaken, access through the upper extremity is recommended as described on the report from the prior angiogram. 3. No findings to suggest acute mesenteric ischemia or bowel infarct. 4. No other acute intra-abdominal findings These findings were discussed with Dr. Duenas at 2:45 PM on 06/23/17. Dictated by: Anisa Hooker M.D. on 06/23/2017 at 14:33 Assessment & Plan The patient is a 72-year-old female with history of multiple GI problems, most recently with severe stenosis of the celiac trunk s/p balloon angioplasty without stent, [place] with 2 stents 16 years ago, hypertension, and right breast cancer s/p lumpectomy and complete antiestrogen therapy presents to the emergency department with ongoing nausea and vomiting with abdominal pain similar to her previous admission where she was found to have severe stenosis of the celiac trunk. Repeat imaging today shows a moderate to severe stenosis. Abdominal pain with nausea and vomiting; present on admission; ongoing -Likely due to ongoing celiac trunk stenosis; other etiologies could be esophagitis, or gastric/duodenal ulcers -Patient has not been able to keep food down as lost 35 pounds -Consult GI -Patient received 1 L normal saline in the emergency department -Maintenance at 125 mL/hour overnight -Consider interventional consult for repeat angioplasty -Continue Plavix, aspirin, Atorvastatin -Morphine for pain; if pain worsens we will switch to Dilaudid; hold home oxycodone Community-acquired pneumonia; present on admission; ongoing -Right middle lobe pneumonia identified on CT -Patient also has a leukocytosis but no fever -Procalcitonin ordered -Allergic to PNC; Ceftriaxone and azithromycin started and will continue. -MRSA screen will not start vancomycin tonight -Blood culture -Sputum culture -Repeat morning labs -Will hold off on the PCR resp panel at this point -Speech therapy evaluation to rule out aspiration. Patient has history of osteomyelitis of the jaw. Hypokalemia; present on admission; ongoing -Creatinine mildly elevated although does not meet standards for [facility]. Will monitor electrolytes and BUN and creatinine closely. -Patient has a history of vomiting and anorexia -Replace with 20 mEq IV; will switch to by mouth patient can tolerate Hypertension; present on admission; stable -Patient blood pressure on admit is 145/78 likely due to pain -Continue enalapril -Continue metoprolol CAD-continue aspirin, Plavix Depression/anxiety-continue Abilify, 0.5 mg Ativan as needed GERD-continue ranitidine, hold omeprazole Disposition: Patient is being admitted to inpatient status with expected length of stay of greater than two midnights due to to severity of symptoms, risk of adverse events and complexity of treatment plan. Full code Pain Evaluation: Adequate Pain Control VTE Prophylaxis: Sub-Q Heparin (Unfractionated) VTE Mechanical Devices: Intermittant Pneumatic CD Resuscitation Status: CPR: Attempt Resuscitation Attending Statement The patient was seen, interviewed and examined. The chart was reviewed and edited. The case was discussed with Dr. Juan Orourke and agree with the above note. Juan Orourke DO Jun 23, 2017 19:36 Elias Borjas MD Jun 24, 2017 00:26
[2017-06-23] MEDS: Ondansetron 2 mg/mL 2 mL Inj IVPUSH PRN (19:40)
[2017-06-23 19:41] VITALS: PULSE 85
[2017-06-23] MEDS ORDERED: cefTRIAXone Inj 1,000 MG in Dextrose 5% Minibag Plus 50 ML IV SCH (20:30)
[2017-06-23] MEDS ORDERED: POTASSIUM ACETATE IV ONE (20:30)
[2017-06-23] MEDS ORDERED: DEXTROSE 5% IV ONE (20:30)
[2017-06-24] VITALS (10 sets, daily range): BP systolic 85–107; BP diastolic 49–57; PULSE 76–105; RESP 12–18; O2SAT 88–98
[2017-06-24] MEDS: Heparin 5,000 Unit/mL Inj SUBQ SCH ×4 (00:30→23:56)
[2017-06-24] MEDS: HYDROcodone-APAP 5-325 mg Tablet PO PRN ×3 (04:31→17:38)
--- NOTE | 2017-06-24 04:56 | NUR ---
ADMIT Pt arrived on unit prior to this shift. Telebox placed on pt. Alert and oriented. Able to ambulate. SBA and nonslip socks on for safety. Call light within reach, using appropriately. Frequent rounding in place.
--- NOTE | 2017-06-24 04:58 | NUR ---
Pain/Nausea Pt complained of pain 8/10 and 4/10 during the night. Administered pain medications, effective. Pt rested through the night. Denies cardiac pain, sob or vomiting. Administered Zofran IV push, one time during the night, resolved at this time. Call light within reach. Hourly rounding in place. Pleasant and cooperative with care.
[2017-06-24 05:20] LABS: BASOPHILS % (AUTO) 0.2 % (0-3); EOSINOPHILS % (AUTO) 0.3 % (0-5); Mean Corpuscular Hemoglobin 25.3 pg (27.0-35.0); Mean Corpuscular Volume 82.2 fL (81-100); NEUTROPHILS % (AUTO) 79.7 % (40-74); Platelet Count 498 bil/L (150-400)
[2017-06-24] MEDS: ARIPiprazole 2 mg Tablet PO SCH (07:36)
[2017-06-24] MEDS ORDERED: Azithromycin Inj 500 MG in Dextrose 5% w/Vial Mate 250 ML IV SCH (08:30)
[2017-06-24] MEDS: DULoxetine 30 mg DR Capsule PO SCH (08:34)
[2017-06-24] MEDS: Ondansetron 2 mg/mL 2 mL Inj IVPUSH PRN (08:40)
--- NOTE | 2017-06-24 11:44 | NUR ---
Evaluation completed. Please go to "Notes" then click on "Assessments and Notes" (bottom left corner of screen). Then select appropriate discipline tab on top of screen.
--- NOTE | 2017-06-24 13:48 | PCM.PNMED ---
Subjective Date of Service Jun 24, 2017 Subjective Patient seen and examined. Complains of abdominal discomfort. Hardly tolerated anything by mouth. Vitals noted. Chronically low bps Exam Vital Signs Vital Sign - Last Date Time Temp Pulse Resp B/P Pulse Ox O2 Delivery O2 Flow Rate FiO2 06/24/17 13:02 37.4 94 18 91/51 98 Room Air Intake and Output 06/23/17 06/23/17 06/24/17 Cumulative From/Thru 15:00 23:00 07:00 06/23/17 11:19 - 06/24/17 06:13 Intake Total 218 ml 218 ml Output Total 400 ml 400 ml Balance -182 ml -182 ml Intake Oral 218 ml 218 ml Output Urine Total 400 ml 400 ml Exam General: Uncomfortable age-appropriate female HEENT: PERRLA, EOMI, nonicteric, membranes moist; no conjunctival pallor Cardio: Regular rate and rhythm no murmurs rubs or gallops Respiratory: CTA bilaterally, no wheezes, no crackles Abdomen: Soft, positive bowel sounds, tender in the epigastrium Extremities: No edema, 5/5 strength, sensation intact Psych: Appropriate mood and affect Lab and Diagnostics Result Diagram: 06/24/17 0510 06/24/17 0510 X-Rays, CTs and MRIs CT angiogram abdomen and pelvis 1. Partially visualized focal airspace opacities at the bases right middle lobe suspicious for lobar pneumonia. Chest film or CT the chest may be helpful to further characterize findings if clinically indicated 2. 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 The patient complains of recurrent symptoms consistent with mesenteric ischemia, repeat angioplasty may be necessary. If angioplasty is undertaken, access through the upper extremity is recommended as described on the report from the prior angiogram. 3. No findings to suggest acute mesenteric ischemia or bowel infarct. 4. No other acute intra-abdominal findings These findings were discussed with Dr. Duenas at 2:45 PM on 06/23/17. Dictated by: Anisa Hooker M.D. on 06/23/2017 at 14:33 Assessment & Plan The patient is a 72-year-old female with history of multiple GI problems, most recently with severe stenosis of the celiac trunk s/p balloon angioplasty without stent, [place] with 2 stents 16 years ago, hypertension, and right breast cancer s/p lumpectomy and complete antiestrogen therapy presents to the emergency department with ongoing nausea and vomiting with abdominal pain similar to her previous admission where she was found to have severe stenosis of the celiac trunk. Repeat imaging today shows a moderate to severe stenosis. Abdominal pain with nausea and vomiting; present on admission; ongoing -Likely due to ongoing celiac trunk stenosis ( imaging noted for moderate to severe stenosis); other etiologies could be esophagitis, or gastric/duodenal ulcers -Patient has not been able to keep food down as lost 35 pounds - continue protonix -interventional consult for repeat angioplasty -Continue Plavix, aspirin, Atorvastatin -Morphine for pain; if pain worsens we will switch to Dilaudid; hold home oxycodone Community-acquired pneumonia; present on admission; ongoing -Right middle lobe pneumonia identified on CT -Patient also has a leukocytosis but no fever -Procalcitonin 0.13 -Allergic to PNC; Ceftriaxone and azithromycin started and will continue. -MRSA screen will not start vancomycin tonight -Blood culture -Sputum culture -Will hold off on the PCR resp panel at this point -Speech therapy evaluation to rule out aspiration. Patient has history of osteomyelitis of the jaw. Hypokalemia; present on admission; resolved -Creatinine mildly elevated although does not meet standards for [facility]. Will monitor electrolytes and BUN and creatinine closely. -Patient has a history of vomiting and anorexia Hypertension; present on admission; stable -Patient blood pressure on admit is 145/78 likely due to pain -Continue enalapril -Continue metoprolol CAD-continue aspirin, Plavix Depression/anxiety-continue Abilify, 0.5 mg Ativan as needed GERD-continue ranitidine, hold omeprazole Disposition: Patient is being admitted to inpatient status with expected length of stay of greater than two midnights due to to severity of symptoms, risk of adverse events and complexity of treatment plan. Full code VTE Prophylaxis: Sub-Q Heparin (Unfractionated) VTE Mechanical Devices: Venous Foot Pump Resuscitation Status: CPR: Attempt Resuscitation Time spent 35 mins Jimy Porter MD Jun 24, 2017 13:48 Jimy Porter MD Jun 24, 2017 13:48
[2017-06-24] MEDS: Pantoprazole 4 mg/mL 10 mL Inj IVPUSH SCH (15:13)
--- NOTE | 2017-06-24 15:36 | NUR ---
Evaluation completed. Please go to "Notes" then click on "Assessments and Notes" (bottom left corner of screen). Then select appropriate discipline tab on top of screen.
--- NOTE | 2017-06-24 16:54 | NUR ---
Social Work-initial assessment: Data:See initial assessment. Pt is a 72 y/o female who was admitted on 06/23/17 for pneumonia per H&P. Pt's insurance is [facility] and [employer] and PCP is T[facility]. EMR Reviewed. SW met with pt and Buck at bedside to discuss discharge planning, SW Role explained. Pt is alert and oriented x3. Pt resides at home with her in fifth wheel trailer with a few steps to enter where she remains independent with ADLS. Pt drives and does use a fww. Pt has no HH or SNF history. Pt has no snf care insurance or VA benefits. SW discussed DPOA/ advanced directive, pt confirms they have completed this, SW encouraged a copy to be brought in. No concerns noted for pt's capacity for self care per RN and MD. SW provided pt and with discharge planning checklist booklet and encouraged them to call with any questions, phone number provided. Pt's to provide transport home. No discharge needs identified. SW will continue to follow if needs arise. Assessment:pt who is independent at baseline. Plan:Pt to discharge home with support from when medically stable via POV. No discharge needs identified. SW will continue to follow if needs arise. INEZ Morrison Addendum: 06/24/17 at 1659 by SOFIA TALAVERA SS Amended: Links added.
--- NOTE | 2017-06-24 18:05 | NUR ---
Pain/Nausea Pt's pain and nausea appearing to be increasing throughout the shift. Rating it from "5-7/10". Pt states "it is always worse in the afternoons and evenings". MD paged and spoke to the family about pain control and the treatment plan. Pt and family agreeable. Added additional pain medications and RN will frequently assess and administer per orders.
[2017-06-24] MEDS: 0.9% Sodium Chloride 1,000 ML IV SCH (18:16)
[2017-06-24] MEDS: HYDROmorphone 0.5 mg/0.5 mL iSecure Syringe IVPUSH PRN ×2 (18:16→23:56)
[2017-06-24] MEDS ORDERED: cefTRIAXone Inj 2,000 MG in Dextrose 5% Minibag Plus 50 ML IV SCH (21:00)
[2017-06-25] VITALS (7 sets, daily range): BP systolic 93–111; BP diastolic 50–64; PULSE 81–100; RESP 16–18; O2SAT 93–98
[2017-06-25] MEDS: HYDROmorphone 0.5 mg/0.5 mL iSecure Syringe IVPUSH PRN ×3 (04:10→17:47)
[2017-06-25] MEDS: 0.9% Sodium Chloride 1,000 ML IV SCH ×2 (04:14→12:53)
--- NOTE | 2017-06-25 04:38 | NUR ---
Pain Pt complained of pain 5/10 x2 during the night. Administered IV Dilaudid, effective. Rested with eyes closed through out most of the night with no other complaints. Denies SOB or n/v. SBA and nonslip socks on for safety. Bed locked, low position. Call light within reach, using appropriately. Frequent rounding in place. Pleasant and cooperative with care.
[2017-06-25 05:32] LABS: Mean Corpuscular Hemoglobin 25.1 pg (27.0-35.0); Mean Corpuscular Volume 83.6 fL (81-100); Platelet Count 470 bil/L (150-400)
[2017-06-25 06:04] LABS: Magnesium 1.5 mg/dL (1.6-2.6)
[2017-06-25 06:14] LABS: BASOPHILS % (AUTO) 1 % (0-3); EOSINOPHILS % (AUTO) 0 % (0-5); MONOCYTES % (AUTO) 7 % (4-12); NEUTROPHILS % (AUTO) 87 % (40-74)
[2017-06-25] MEDS: DULoxetine 30 mg DR Capsule PO SCH (07:38)
[2017-06-25] MEDS: ARIPiprazole 2 mg Tablet PO SCH (07:38)
[2017-06-25] MEDS: Heparin 5,000 Unit/mL Inj SUBQ SCH (07:39)
[2017-06-25] MEDS: Pantoprazole 4 mg/mL 10 mL Inj IVPUSH SCH (07:40)
--- NOTE | 2017-06-25 08:13 | PCM.PNMED ---
Subjective Date of Service Jun 25, 2017 Subjective Patient seen and examined today. Not doing well. Abdominal pain present, with some distention. Denies dizziness. Exam Vital Signs Vital Sign - Last Date Time Temp Pulse Resp B/P Pulse Ox O2 Delivery O2 Flow Rate FiO2 06/25/17 04:19 36.8 94 16 93/50 97 Nasal Cannula 2.00 06/24/17 20:34 95 Intake and Output 06/24/17 06/24/17 06/25/17 Cumulative From/Thru 15:00 23:00 07:00 06/23/17 11:19 - 06/25/17 06:42 Intake Total 610 ml 1390 ml 2218 ml Output Total 550 ml 650 ml 1600 ml Balance 60 ml 740 ml 618 ml Intake Oral 300 ml 300 ml 818 ml IV Total 310 ml 1090 ml 1400 ml Output Urine Total 550 ml 650 ml 1600 ml # Voids 1 1 # Bowel Movements 0 0 Exam General: Uncomfortable age-appropriate female HEENT: PERRLA, EOMI, nonicteric, membranes moist; no conjunctival pallor Cardio: Regular rate and rhythm no murmurs rubs or gallops Respiratory: CTA bilaterally, no wheezes, no crackles Abdomen: distended, tender to palpation, no bruises, BS normal Extremities: No edema, 5/5 strength, sensation intact Psych: Appropriate mood and affect Lab and Diagnostics Result Diagram: 06/25/17 0520 06/25/17 0520 X-Rays, CTs and MRIs CT angiogram abdomen and pelvis 1. Partially visualized focal airspace opacities at the bases right middle lobe suspicious for lobar pneumonia. Chest film or CT the chest may be helpful to further characterize findings if clinically indicated 2. 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 The patient complains of recurrent symptoms consistent with mesenteric ischemia, repeat angioplasty may be necessary. If angioplasty is undertaken, access through the upper extremity is recommended as described on the report from the prior angiogram. 3. No findings to suggest acute mesenteric ischemia or bowel infarct. 4. No other acute intra-abdominal findings These findings were discussed with Dr. Duenas at 2:45 PM on 06/23/17. Dictated by: Anisa Hooker M.D. on 06/23/2017 at 14:33 Assessment & Plan The patient is a 72-year-old female with history of multiple GI problems, most recently with severe stenosis of the celiac trunk s/p balloon angioplasty without stent, [place] with 2 stents 16 years ago, hypertension, and right breast cancer s/p lumpectomy and complete antiestrogen therapy presents to the emergency department with ongoing nausea and vomiting with abdominal pain similar to her previous admission where she was found to have severe stenosis of the celiac trunk. Repeat imaging today shows a moderate to severe stenosis. Sepsis 2/2 abdominal infection vs pneumonia - lactic acid normal, however leukocytosis, febrile, hypotensive, anemic, pct elevated - will broaden the spectrum, zosyn instead of azithro and ceftriaxone - will get CT abd pelvis w/wo contrast Abdominal pain with nausea and vomiting; present on admission; ongoing -Likely due to ongoing celiac trunk stenosis ( imaging noted for moderate to severe stenosis); other etiologies could be esophagitis, or gastric/duodenal ulcers - lactic acid normal, however leukocytosis, febrile, hypotensive, anemic, will get CT abd pelvis w/wo contrast - continue protonix -interventional consult for repeat angioplasty -hold Plavix, aspirin -diluadid prn Community-acquired pneumonia; present on admission; ongoing -Right middle lobe pneumonia identified on CT, w -worsening leukocystosis, and fever, will get CT chest with CT abd/pelvis -Procalcitonin 0.13 > 1.07 -Allergic to PNC; Ceftriaxone and azithromycin started and will continue. -MRSA screen will not start vancomycin tonight -Blood culture -ve to date -Sputum culture - not producing Anemia - HGb dropped in last few days, no signs of active bleeding ( no melena or hematemsis) , however patient hypotensive - will get occult blood Hypokalemia; present on admission; resolved -Creatinine mildly elevated although does not meet standards for [facility]. Will monitor electrolytes and BUN and creatinine closely. -Patient has a history of vomiting and anorexia Hypertension at home; present on admission -Now hypotensive - hold anti hypertensive CAD-home aspirin, Plavix, hold for now Depression/anxiety-continue Abilify, 0.5 mg Ativan as needed GERD-continue ranitidine, hold omeprazole Disposition: Patient is being admitted to inpatient status with expected length of stay of greater than two midnights due to to severity of symptoms, risk of adverse events and complexity of treatment plan. Full code VTE Prophylaxis: Sub-Q Heparin (Unfractionated) VTE Mechanical Devices: Venous Foot Pump Resuscitation Status: CPR: Attempt Resuscitation Time spent 35 mins Jimy Porter MD Jun 25, 2017 08:13
[2017-06-25] MEDS: Piperacillin-Tazo 3.375 Gm Inj 3.375 GM in Dextrose 5% Minibag Plus 50 ML IV SCH ×2 (08:28→16:28)
[2017-06-25] MEDS ORDERED: Pantoprazole 4 mg/mL 10 mL Inj IVPUSH SCH (08:30)
[2017-06-25] MEDS: Ondansetron 2 mg/mL 2 mL Inj IVPUSH PRN ×2 (09:51→21:25)
--- NOTE | 2017-06-25 11:29 | CONS ---
[address] [address] CONSULTATION REPORT PATIENT: EARLINE FLAHERTY : 1945 MR#: [id number] ADMIT: 06/23/2017 JOB ID: [id number] DATE OF SERVICE: 06/25/2017 I thank German for this timely consult. REASON FOR CONSULTATION: Possible pneumonia. HISTORY OF PRESENT ILLNESS: The patient is a very unfortunate 72-year-old woman with a severe a collection of severe medical problems including chronic osteomyelitis of the left mandible, coronary artery disease, peptic ulcer disease, and an occlusion of the SMA for which she is being evaluated by one of the hospitals in [place]. She has been having considerable abdominal pain and weight loss which is felt to be related to the SMA occlusion, and she has undergone balloon angioplasty apparently for that. The patient's current problems which led to her admission on June 23 include increasing abdominal pain, protracted nausea, vomiting, anorexia, and generalized fatigue due to this weight loss. She stated she had some chills and some night sweats for about 48 hours prior to admission, but no known fever and absolutely no cough, shortness of breath, or pleuritic chest pain. It was felt that the time of admission on the , that this increasing abdominal pain, nausea, vomiting, and weight loss were all related to her SMA occlusion for which she had undergone balloon angioplasty about two weeks before. It is also notable that she had diverticulitis just a few weeks ago and received antibiotics which caused C. diff which was subsequently treated by the patient and according to the patient resolved. As part of her workup of course the CT of the abdomen that was performed showed what appeared to be a high-grade stenosis of the celiac trunk and this was thought to be the reason for the nausea, vomiting, abdominal pain, and weight loss, but incidental finding was made of a right middle lobe consolidation and for that reason Infectious Disease is consulted today. Remainder of the review of systems is noncontributory. The patient tells me that she was told she had a fever when she came in the hospital, but she had never noticed any. She has had some low-grade chills, which have gone on for weeks as well as some intermittent sweating, but the sweats have been really worse in the day or two leading up to her June 23 admission. At no point has she had any pulmonary symptoms whatsoever. She also notes that her left jaw continues to hurt episodically and she was told by the physicians in [place] roughly a decade ago that she would always have infection in her left mandible as she had failed weeks and months of IV and oral therapy as well as hyperbaric oxygen. The left mandible has not been a problem recently. PAST MEDICAL HISTORY: 1. Osteomyelitis left mandible x12 years, which is said to be chronic and has reportedly failed IV as well as oral therapy and hyperbarics. 2. Right breast cancer treated several years ago with surgery and radiation said to be cured. 3. Coronary artery disease status post stenting. 4. Diverticulitis with recent flare requiring antibiotics. 5. C. difficile colitis diagnosed several weeks ago and treated with resolution of diarrhea. 6. Hypertension. 7. Peptic ulcer disease. 8. 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 9. Profound weight loss. SOCIAL HISTORY: The patient lives with her in [place] in the so called [facility]. She is an ex-smoker, having quit about six years ago when she was diagnosed with breast cancer. She does not drink alcohol or use illicit drugs. FAMILY HISTORY: Negative for TB in first and second-degree relatives. REVIEW OF SYSTEMS: Was done. The patient has intermittent mild headaches. No visual change recently. No sore throat. She does have some trouble swallowing and whenever she swallows something she has pain and sometimes vomits. She has not had any cough, shortness of breath, or chest pain whatsoever. She has had nausea and vomiting in conjunction with diffuse abdominal pain, which is what brought her into the hospital. This has all been associated with a 35 pounds weight loss. There has been no diarrhea since the resolution of her C. diff a few weeks ago. She denies any swelling or pain in the joints. She denies any neurologic signs or symptoms. Remainder of the review of systems negative. PHYSICAL EXAMINATION: Reveals an afebrile woman. She was febrile to 38.3 on the evening of June 24, which completed her first full day in the hospital. Otherwise all temperatures negative. Pulse 82, respiratory rate 16, blood pressure 104/61. She is saturating well on 1 L. She looks depressed and tired. Her skin is rather pale. She is alert and lucid and able to give a good history, but her speech is slow and suggests overall discouragement about all these medical problems. Examination of the head reveals no trauma or temporal wasting. Eyes without conjunctivitis. Oral cavity without thrush or hairy leukoplakia. Her lower teeth are all missing, upper teeth are dentures actually. The patient does have mild tenderness along the left mandible, but there is no erythema or swelling there. Neck is without adenopathy or palpable nodes. Neck is supple. Lungs with very few crackles at the right base only, otherwise clear. Cardiac tones regular rate and rhythm without notable murmur. The abdomen is diffusely tender and difficult to examine. There is no appreciable hepatosplenomegaly. No ascites noted. She does not have a Juarez catheter. Her back is without focal tenderness. Her lower extremities without synovitis, cellulitis, or restriction of motion. There is no skin rash anywhere. She has good peripheral pulses and well-perfused extremities. Neurologically she is intact. LABORATORIES: Include white count 18,000 when she came in, now 25,000; platelet count 470,000. That white count is notable for 3% band form. Creatinine is 1.07. LFTs completely normal. Procalcitonin 0.13 on the first day, now today 1.07. Micro studies include negative blood cultures x2 and negative MRSA screen. IMAGING: Carefully reviewed on the computer. It shows a possible lobar pneumonia at the right middle area, no chest x-ray has been done yet interestingly. In addition, a CT showed a high-grade stenosis of the celiac axis which was similar to the MRA on May 08 prior to the angioplasty May 14, no bowel infarct was seen. IMPRESSION: This is a difficult and confusing case. It certainly sounds as if the primary thing going on here is that the patient has re-occluded her celiac access and has developed increasing abdominal pain, worsening nausea and vomiting and ongoing weight loss and nutritional problems. The finding of the infiltrate in the right middle lobe is of uncertain significance as the patient has no cough and has had no fever or significant shaking chills recently. She is not short of breath. No sputum production whatsoever. If she does have pneumonia it will likely be an aspiration type event as she has had nausea, vomiting, and retching in the past days. Treatment of a possible pneumonia here will be complicated by the fact she recently had Clostridium difficile triggered by drugs she received for diverticulitis. Though there is no consensus many ID experts like to add Clostridium difficile prophylaxis if broad-spectrum antibiotics are needed in a patient such as this. The final issue here is whether or not she may still have chronic osteo of her left jaw. She has not had followup for years after months and months of weekly followup in [place]. She reports that at the end she was told she had a low-level chronic infection in the left mandible and it would be stopped when it reached the temporomandibular joint. This is not actually correct as mandibular osteo can jump the temporomandibular joint and lead to skull-based osteo which can be very morbid or even fatal. Some re-evaluation of this mandibular process is indicated. RECOMMENDATIONS: 1. We await the pending cultures. 2. Will add doxycycline to the Zosyn she is already receiving to complete a comprehensive package for right middle lobe pneumonia. Doxy is being used because it seems to prevent rather than cause C. diff. 3. Oral Vanco 125 b.i.d. will be added to her current antibiotics to try and forestall recurrent C. diff. 4. CT scan of the chest has been ordered, and I have discussed this with Radiology. The patient is already scheduled for an abdominal CT with contrast today so I think it is reasonable to just piggyback on CT of the chest, and try to resolve this question about possible pneumonia in this patient with leukocytosis, elevated procalcitonin, and no pulmonary symptoms. Imaging of the mandible has been ordered. 5. Legionella and pneumococcal urine antigens will be ordered. 6. I think we can hold off a bit on respiratory viral PCR panel as that would not seem to be terribly likely in this circumstance. 7. I will continue to follow this complex patient with you.
--- NOTE | 2017-06-25 13:16 | DRSVH ---
PROCEDURE: CT CHEST, ABDOMEN AND PELVIS [facility] CONTRAST ([id number]) INDICATIONS: pneumonia, anemia, distended abdomen TECHNIQUE: After the administration of oral and intravenous contrast, 5 mm thick sections acquired from the lung apices to the symphysis. 5 mm coronal and sagittal reformats were performed, with additional 7 mm c oronal MIP reformats through the lungs. For radiation dose reduction, the following was used: autom ated exposure control, adjustment of mA and/or kV according to patient size. COMPARISON: CTA abdomen 06/23/2017; CT abdomen and pelvis 05/03/2017 FINDINGS: Image quality: Excellent. CHEST: Lungs and pleura: A small area of groundglass density is present in the subpleural right upper lobe, image 20. Scarring/atelectasis in the anterior sulci of both upper lobes. Areas of consolidation are present at the base of the right middle lobe and in the posterior and lateral segments of the right l ower lobe. Similar densities are evident at the base of the lingula and anterior segment left lower l obe. These findings may reflect active pneumonia. No pleural effusions or pneumothorax. Central and peripheral airways appear patent and normal in caliber. Mediastinum: Heart size is normal. No pericardial effusion. No mediastinal or hilar adenopathy by size criteria. Thoracic aorta and central pulmonary arteries are normal in size. Esophagus is kuldeep l in caliber. No hiatal hernia. Chest wall: Surgical clips right breast and axilla. No axillary or supraclavicular adenopathy by siz e criteria. Thyroid gland contains small hypodense nodules on the left. ABDOMEN: Solid organs: Liver and spleen are normal in size. The liver shows homogeneous decreased attenuation . Irregular hypodensities are present adjacent to the falciform ligament anteriorly, unchanged. Gallb ladder shows layering sludge, no visible calcifications. Biliary system is non dilated. Pancreas en hances normally. No adrenal nodules. Kidneys demonstrate normal size and enhancement, without hydro nephrosis. Peritoneum and bowel: The stomach, duodenum and proximal small bowel appear normal. There is mild flu id distention of the distal and terminal ileum and proximal portion of the ascending colon and cecum. No appendix is visualized. There is mild wall thickening and pericolic fat stranding around the jovany cent ascending colon. Transverse colon is fluid-filled. The colon distal to the splenic flexure is re latively normal. Nodes and vessels: No retroperitoneal or mesenteric adenopathy by size criteria. Aorta and inferior vena cava are normal in size. High-grade stenosis of the celiac artery again noted. There is no visi ble contrast in the very proximal portion of the SMA which may be occluded and fills distally via col lateral flow. Miscellaneous: No ventral hernias. PELVIS: Genitourinary: Bladder wall thickness is normal. Uterus and adnexa are unremarkable. Miscellaneous: No inguinal hernias or adenopathy. Bones: No suspicious bony lesions. Sclerosis again noted within vertebral segments lower thoracic an d lumbar spine. No vertebral body compression fractures. IMPRESSION: 1. Multisegment pulmonary infiltrates with atelectasis, suspect for pneumonia, more extensive than on recent prior study. 2. Bowel distention, wall thickening and pericolic fat stranding is evident in the ascending colon, s uspect for colitis. Considering degree of mesenteric vascular disease, possibility of ischemic bowel cannot be excluded. 3. Hepatic steatosis. Marginal hypodensities anteriorly are unchanged. 4. Postoperative changes related to right breast cancer. Dictated by: Wilmer Moy M.D. on 06/25/2017 at 12:56 Approved by: Wilmer Moy M.D. on 06/25/2017 at 13:14
[2017-06-25] MEDS: HYDROcodone-APAP 5-325 mg Tablet PO PRN (13:22)
--- NOTE | 2017-06-25 14:28 | DRSVH ---
PROCEDURE: X-RAY MANDIBLE COMPLETE, MINIMUM FOUR VIEWS ([id number]) INDICATIONS: CHRONIC OSTEO MYELITIS LEFT MANDIBLE TECHNIQUE: 4 views of the mandible were acquired. COMPARISON: None. FINDINGS: Bones: No fractures or dislocations. No suspicious bony lesions. Soft tissues: Visualized sinuses appear clear. No suspicious soft tissue densities. IMPRESSION: Although no bony erosions are identified, plain film radiography is relatively insensiti ve in the acute phases of osteomyelitis and may not demonstrate radiographic changes for 15 days. If acute osteomyelitis is of clinical concern, nuclear medicine regional bone scan or MRI is recommende d. Dictated by: Jakob SWAIN Interpreted: Ramon Moy MD on 06/25/2017 at 13:11 Approved by: Wilmer Moy M.D. on 06/25/2017 at 14:26
--- NOTE | 2017-06-25 14:32 | NUR ---
Morning blood thinners held Patient had orders for Aspirin and Plavix. Medication was held this morning due to possible procedure to be performed. MD was notified.
[2017-06-25] MEDS: Vancomycin 125 mg Oral Capsule PO SCH (21:30)
[2017-06-25] MEDS: Doxycycline Inj 100 MG in Dextrose 5% Minibag Plus 100 ML IV SCH (21:31)
[2017-06-26] VITALS (18 sets, daily range): BP systolic 91–115; BP diastolic 28–67; PULSE 64–100; RESP 16–22; O2SAT 91–100
[2017-06-26] MEDS: HYDROcodone-APAP 5-325 mg Tablet PO PRN (00:36)
[2017-06-26] MEDS: Piperacillin-Tazo 3.375 Gm Inj 3.375 GM in Dextrose 5% Minibag Plus 50 ML IV SCH ×3 (00:47→18:05)
[2017-06-26] MEDS: 0.9% Sodium Chloride 1,000 ML IV SCH ×3 (04:53→12:53)
[2017-06-26] MEDS: HYDROmorphone 0.5 mg/0.5 mL iSecure Syringe IVPUSH PRN ×2 (06:07→19:41)
[2017-06-26 06:08] LABS: BASOPHILS % (AUTO) 0.1 % (0-3); EOSINOPHILS % (AUTO) 0.1 % (0-5)
[2017-06-26 06:19] LABS: INR 1.12 ratio; MONOCYTES % (AUTO) 9.8 % (4-12); Mean Corpuscular Hemoglobin 25.1 pg (27.0-35.0); Mean Corpuscular Volume 82.9 fL (81-100); NEUTROPHILS % (AUTO) 85.1 % (40-74); Platelet Count 417 bil/L (150-400)
[2017-06-26] MEDS ORDERED: Potassium Chloride Inj 30 MEQ in Dextrose 5% 500 ML IV ONE (07:20)
[2017-06-26] MEDS: ARIPiprazole 2 mg Tablet PO SCH (07:34)
[2017-06-26] MEDS: Vancomycin 125 mg Oral Capsule PO SCH (07:34)
[2017-06-26] MEDS: DULoxetine 30 mg DR Capsule PO SCH (07:35)
--- NOTE | 2017-06-26 07:59 | PCM.PNMED ---
Subjective Date of Service Jun 26, 2017 Subjective Patient says pain is controlled. Had two bowel movements since yesterday. One had juan blood in it, however says its possibly from hemarrhoids. Vitals stable. Exam Vital Signs Vital Sign - Last Date Time Temp Pulse Resp B/P Pulse Ox O2 Delivery O2 Flow Rate FiO2 06/26/17 01:30 37.1 97 16 115/58 97 Nasal Cannula 1.00 06/24/17 20:34 95 Intake and Output 06/25/17 06/25/17 06/26/17 Cumulative From/Thru 15:00 23:00 07:00 06/23/17 11:19 - 06/26/17 06:29 Intake Total 2269 ml 0 ml 4487 ml Output Total 750 ml 2350 ml Balance 1519 ml 0 ml 2137 ml Intake Oral 100 ml 0 ml 918 ml IV Total 2169 ml 3569 ml Output Urine Total 750 ml 2350 ml # Voids 2 2 5 # Bowel Movements 1 2 3 Exam General: Uncomfortable age-appropriate female HEENT: PERRLA, EOMI, nonicteric, membranes moist; no conjunctival pallor Cardio: Regular rate and rhythm no murmurs rubs or gallops Respiratory: CTA bilaterally, no wheezes, no crackles Abdomen: distended, tender to palpation, no bruises, BS normal Extremities: No edema, 5/5 strength, sensation intact Psych: Appropriate mood and affect Lab and Diagnostics Result Diagram: 06/26/17 0510 06/26/17 0510 X-Rays, CTs and MRIs CT angiogram abdomen and pelvis 1. Partially visualized focal airspace opacities at the bases right middle lobe suspicious for lobar pneumonia. Chest film or CT the chest may be helpful to further characterize findings if clinically indicated 2. 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 The patient complains of recurrent symptoms consistent with mesenteric ischemia, repeat angioplasty may be necessary. If angioplasty is undertaken, access through the upper extremity is recommended as described on the report from the prior angiogram. 3. No findings to suggest acute mesenteric ischemia or bowel infarct. 4. No other acute intra-abdominal findings These findings were discussed with Dr. Duenas at 2:45 PM on 06/23/17. Dictated by: Anisa Hooker M.D. on 06/23/2017 at 14:33 CT chest/abd/pelvis IMPRESSION: 1. Multisegment pulmonary infiltrates with atelectasis, suspect for pneumonia, more extensive than on recent prior study. 2. Bowel distention, wall thickening and pericolic fat stranding is evident in the ascending colon, suspect for colitis. Considering degree of mesenteric vascular disease, possibility of ischemic bowel cannot be excluded. 3. Hepatic steatosis. Marginal hypodensities anteriorly are unchanged. 4. Postoperative changes related to right breast cancer. Assessment & Plan The patient is a 72-year-old female with history of multiple GI problems, most recently with severe stenosis of the celiac trunk s/p balloon angioplasty without stent, [facility] with 2 stents 16 years ago, hypertension, and right breast cancer s/p lumpectomy and complete antiestrogen therapy presents to the emergency department with ongoing nausea and vomiting with abdominal pain similar to her previous admission where she was found to have severe stenosis of the celiac trunk. Repeat imaging today shows a moderate to severe stenosis. Sepsis 2/2 abdominal infection vs pneumonia - lactic acid normal, however leukocytosis, febrile, hypotensive, anemic, pct elevated - continue oral vanc, doxy along with Zosyn, appreciate Dr. Mehta's input - CT chest/ abd/ pelvis noted as above Abdominal pain with nausea and vomiting; present on admission; ongoing -Likely due to ongoing celiac trunk stenosis ( imaging noted for moderate to severe stenosis); other etiologies could be esophagitis, or gastric/duodenal ulcers - lactic acid normal, however leukocytosis, febrile, hypotensive, anemic, CT abd pelvis w contrast noted : bowel distention, pericolic fat stranding, suspicion for colitis vs ischemia - continue protonix -interventional procedure today for angiogram -hold Plavix, aspirin, lovenox for now for procedure - Surgery consulted, on board in case there is acute ischemia causing perforation - was started on lovenox for bridging, held today for procedure. - Discussed the case with Dr. Vaughn (Vascular surgeon at [facility]) who will look at the images, for now recs: angioplasty , and possible EGD to evaluate the gastric ulcer -diluadid prn Community-acquired pneumonia; present on admission; ongoing -Right middle lobe pneumonia identified on CT intially, repeat CT chest shows - multisegment pulmonary infiltrates -white count trending down -Procalcitonin 0.13 > 1.07 -on zosyn + doxy -Blood culture -ve to date -Sputum culture - not producing Anemia - HGb dropped in last few days, will continue to trend - discussed the case with Dr. De Jesus who suggested to watch for melena or any active signs of bleeding, will need endoscopy if Hgb doesnt stabilize - continue protonix Hypokalemia; present on admission; resolved - replace as need, likely 2/2 to decrease oral intake + colitis/ischemic bowel Hypertension at home; present on admission -Now hypotensive - hold anti hypertensive CAD-home aspirin, Plavix, hold for now Depression/anxiety-continue Abilify, 0.5 mg Ativan as needed GERD-continue ranitidine, hold omeprazole Disposition: Patient is being admitted to inpatient status with expected length of stay of greater than two midnights due to to severity of symptoms, risk of adverse events and complexity of treatment plan. Full code VTE Prophylaxis: Sub-Q Heparin (Unfractionated) VTE Mechanical Devices: Venous Foot Pump Resuscitation Status: CPR: Attempt Resuscitation Time spent 55 mins Jimy Porter MD Jun 26, 2017 07:59
[2017-06-26] MEDS: Doxycycline Inj 100 MG in Dextrose 5% Minibag Plus 100 ML IV SCH (09:01)
--- NOTE | 2017-06-26 10:16 | DRSVH ---
PROCEDURE: X-RAY ACUTE ABDOMINAL SERIES ([id number]) INDICATIONS: concern for mesentric ischemia TECHNIQUE: One view chest and two views of the abdomen were acquired. COMPARISON: [facility], CT, CT CHEST ABD PELVIS W CON, 06/25/2017, 11:09. FINDINGS: Surgical changes and devices: None. Chest: Bibasilar airspace opacities redemonstrated. Heart size is normal. No pleural effusions. No pneumoperitoneum. Abdomen: Abnormal bowel gas pattern is present. There is mild gaseous distention of multiple small b owel loops within the upper midabdomen and differential air-fluid levels are noted on the upright exa mination. Residual contrast media noted within the colon and the urinary bladder. No pneumatosis or bowel wall thickening. No pneumoperitoneum. Bones: No suspicious bony lesions. IMPRESSION: 1. Findings suggesting partial small bowel obstruction as there is contrast media noted within the co deion. 2. Bibasilar patchy airspace opacities consistent with atelectasis versus aspiration or pneumonia. Dictated by: Jakob Pickens [facility] Interpreted: Charbel Hooper MD on 06/26/2017 at 9:21 Approved by: Charbel Hooper M.D. on 06/26/2017 at 10:13
[2017-06-26] MEDS ORDERED: Heparin 1,000 Unit/mL 10 mL Inj ONE ×2 (10:42→13:12)
[2017-06-26] MEDS ORDERED: Heparin 10,000 Unit/1,000 mL NS Premix IV ONE ×2 (10:42→13:04)
[2017-06-26] MEDS ORDERED: 0.9% Sodium Chloride 1,000 ML ONE (10:42)
[2017-06-26] MEDS ORDERED: Verapamil 2.5 mg/mL 2 mL Inj ONE (10:44)
[2017-06-26] MEDS ORDERED: Nitroglycerin 50,000 mcg/250 mL D5W Premix IV ONE (10:44)
--- NOTE | 2017-06-26 11:05 | NUR ---
IV placement on right Per radiologist request 2 IV lines placed on right arm for procedure. Pt aware of this request and agrees although has been previously resistant to IV placement in right due to lymph node removal 7 years ago
--- NOTE | 2017-06-26 11:09 | NUR ---
Doxycycline Patient has an order for Doxycycline IV. Patient has an allergy listed as Doxycycline. Patient has had a couple doses without any reaction and MD was notified. MD ordered to continue the IV medication at this time.
[2017-06-26] MEDS ORDERED: fentaNYL-PF 50 mCg/mL 2 mL Inj ONE (11:32)
[2017-06-26] MEDS ORDERED: Phenylephrine/NS-PF 100 mCg/mL 5 mL Syringe IVPUSH ONE (11:47)
[2017-06-26] MEDS ORDERED: Ondansetron 2 mg/mL 2 mL Inj ONE (13:23)
--- NOTE | 2017-06-26 16:10 | DRSVH ---
PROCEDURE: ARTERIOGRAM ABD SELECTIVE INDICATIONS: ISCHEMIC BOWEL COMPARISON: None. Technique: 1. Left radial arterial access. 2. Aortogram. 3. Angioplasty of the proximal celiac axis. 4. Completion arteriogram. 5. Sheath removal hemostasis. The left radial artery was accessed using a micropuncture kit. The micropuncture sheath was exchanged for a 5 Macedonian sheath. With the aid of a Kumpe catheter, an 035 wire was advanced with tip in the ab dominal aorta. The catheter and wire were then directed across a high-grade stenosis at the origin of the celiac axis. The catheter was removed, and balloon angioplasty was performed for the high-grade stenosis first with a 4 mm x 20 mm high-pressure balloon, next with a 6 mm x 20 mm high-pressure ball oon, and lastly with a 7 mm x 40 mm high-pressure balloon. Interval arteriogram was performed between angioplasty procedures. The balloon catheter was then removed, the wire was removed, the sheath was removed, and hemostasis was achieved. FINDINGS: Initial arteriogram demonstrates a focal high-grade stenosis at the origin of the celiac a xis. Completion arteriogram demonstrates marked decrease in the degree of stenosis at the celiac axis . Only a mild residual stenosis remains. IMPRESSION: 1. Status post successful angioplasty of a focal high-grade stenosis at the origin of the celiac axis with mild residual stenosis remaining. Please note, given the patient's recalcitrant stenosis in this region and rapid restenosis after clement oplasty on 05/14/17, vascular surgery consultation is recommended for consideration of bypass graft. Dictated by: Anisa Hooker M.D. on 06/26/2017 at 15:50 Approved by: Anisa Hooker M.D. on 06/26/2017 at 16:08
--- NOTE | 2017-06-26 16:12 | PCM.DIMED ---
Discharge Instructions Date of Service Jun 26, 2017 Dates of Hospitalization Jun 23, 2017 at 16:48 Discharge Diagnosis Discharge Diagnosis Celiac artery stenosis SMA stenosis Cdiff Medication Instructions Additional med instructions Home meds being held Patient to be continued on zosyn, doxy and oral vanco due to concerns for cdiff , in addition to her pneumonia.. Diet Discharge Diet: Other (NPO) Jimy Porter MD Jun 26, 2017 16:12
--- NOTE | 2017-06-26 17:07 | NUR ---
To seed analysis laboratory assistant Patient report given to seed analysis laboratory assistant nurse. Patient has four peripheral IVs in place two on each arm. Patient IV fluids and antibiotics stopped and disconnected. Patient family followed patient and dental laboratory supervisor staff while patient was wheeled in [facility] to procedure.
--- NOTE | 2017-06-26 17:37 | NUR ---
[facility] care patient initial somnolent when arrived to [facility], [address] on patient. O2 sat stable in Mid 90's. TR band to left wrist. pulse, cap refill, and sensation all within normal limits. TR band pressure slowly decreased over 30 minutes, and removed at 1700hrs. 2x2 dressing and op-site placed to wrist. patient tolerated well. patient and educated on mobility limitations with left wrist. patient will require frequent remind to not use left hand/wrist. report called to Betty Peres RN M[facility] at 1715hrs and patient transferred back room 3001 at 1735hrs.
[2017-06-26] MEDS ORDERED: VANC125C3 PO (18:07)
--- NOTE | 2017-06-26 18:14 | PCM.DC.MED ---
Discharge Summary Date of Service Jun 26, 2017 Dates of Hospitalization Date of Hospital Admission Jun 23, 2017 at 16:48 Date of Discharge: Jun 26, 2017 Providers: Admitting Physician: Elias Borjas MD Primary Care Physician: Eileen Narvaez PA-C Attending Physician: Denys Porter MD Diagnosis at Time of Discharge Diagnosis at Time of Discharge Celiac artery stenosis SMA stenosis Cdiff Procedures XRay, CTs & MRIs CT angiogram abdomen and pelvis 1. Partially visualized focal airspace opacities at the bases right middle lobe suspicious for lobar pneumonia. Chest film or CT the chest may be helpful to further characterize findings if clinically indicated 2. 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 The patient complains of recurrent symptoms consistent with mesenteric ischemia, repeat angioplasty may be necessary. If angioplasty is undertaken, access through the upper extremity is recommended as described on the report from the prior angiogram. 3. No findings to suggest acute mesenteric ischemia or bowel infarct. 4. No other acute intra-abdominal findings These findings were discussed with Dr. Duenas at 2:45 PM on 06/23/17. Dictated by: Anisa Hooker M.D. on 06/23/2017 at 14:33 CT chest/abd/pelvis IMPRESSION: 1. Multisegment pulmonary infiltrates with atelectasis, suspect for pneumonia, more extensive than on recent prior study. 2. Bowel distention, wall thickening and pericolic fat stranding is evident in the ascending colon, suspect for colitis. Considering degree of mesenteric vascular disease, possibility of ischemic bowel cannot be excluded. 3. Hepatic steatosis. Marginal hypodensities anteriorly are unchanged. 4. Postoperative changes related to right breast cancer. Brief History Patient is a 71-year-old female with history of breast cancer 7 years ago finished treatment with anti-estrogen therapy ands/p lumpectomy, he states that she had radiation therapy. The patient also reports CAD s/p 2 cardiac stents 16 years ago, high-grade stenosis of the celiac trunk on MRI angiogram 05/08/17 with reported angioplasty on 05/14/17 who presents emergency department today due to ongoing epigastric abdominal pain with nausea and vomiting postprandially. Patient states that this is somewhat of her baseline over this last year and has been worsening over the last 3 weeks. She denies ongoing fever or chills, chest pain or shortness of breath. Due to her prolonged vomiting the patient is more or less anorexic and has lost a total of 35 pounds. Patient denies hematemesis, hematochezia, or melena, although it is noted that the patient takes iron so her stools are usually dark. Patient underwent CT angiogram of the abdomen and pelvis in the emergency department which showed a similar high-grade stenosis of the celiac trunk. On that CT was also identified the patient has a right middle lobe consolidation. There are no findings consistent with an acute infarct of the bowel. Blood work reveals a leukocytosis of around 18,000 but there is no elevation of lactic acid. The patient was given a dose of Zosyn in the emergency room and was admitted to the hospitalist service for further evaluation and treatment. Hospital Course The patient is a 72-year-old female with history of multiple GI problems, most recently with severe stenosis of the celiac trunk s/p balloon angioplasty without stent, [place] with 2 stents 16 years ago, hypertension, and right breast cancer s/p lumpectomy and complete antiestrogen therapy presents to the emergency department with ongoing nausea and vomiting with abdominal pain similar to her previous admission where she was found to have severe stenosis of the celiac trunk. Repeat imaging today shows a moderate to severe stenosis. Sepsis 2/2 abdominal infection vs pneumonia - lactic acid normal, however leukocytosis, febrile, hypotensive, anemic, pct elevated - continue oral vanc, doxy along with Zosyn, appreciate Dr. Mehta's input - CT chest/ abd/ pelvis noted as above Abdominal pain with nausea and vomiting; present on admission; ongoing -Likely due to ongoing celiac trunk stenosis ( imaging noted for moderate to severe stenosis); other etiologies could be esophagitis, or gastric/duodenal ulcers - lactic acid normal, however leukocytosis, febrile, hypotensive, anemic, CT abd pelvis w contrast noted : bowel distention, pericolic fat stranding, suspicion for colitis vs ischemia - continue protonix -interventional did angiogram today : angioplasty of celiac without stent, SMA completely occluded -hold Plavix, aspirin, lovenox for now for procedure - Surgery consulted, on board in case there is acute ischemia causing perforation - was started on lovenox for bridging, held today for procedure. - Discussed the case with Dr. Vaughn (Vascular surgeon at [facility]) who accepted the patient for further evaluation, appreciate his quick indulgence and acceptance. -diluadid prn Community-acquired pneumonia; present on admission; ongoing -Right middle lobe pneumonia identified on CT intially, repeat CT chest shows - multisegment pulmonary infiltrates -white count trending down -Procalcitonin 0.13 > 1.07 -on zosyn + doxy -Blood culture -ve to date -Sputum culture - not producing Anemia - HGb dropped in last few days, will continue to trend - discussed the case with Dr. De Jesus who suggested to watch for melena or any active signs of bleeding, will need endoscopy if Hgb doesnt stabilize - continue protonix Hypokalemia; present on admission; resolved - replace as need, likely 2/2 to decrease oral intake + colitis/ischemic bowel Hypertension at home; present on admission -Now hypotensive - hold anti hypertensive CAD-home aspirin, Plavix, hold for now Depression/anxiety-continue Abilify, 0.5 mg Ativan as needed GERD-continue ranitidine, hold omeprazole Disposition: Transfer to [facility] for vascular surgery Full code Exam Vital Signs (Last) Date Time Temp Pulse Resp B/P Pulse Ox O2 Delivery O2 Flow Rate FiO2 06/26/17 17:47 36.2 64 18 104/67 Nasal Cannula 1.00 06/26/17 17:13 95 06/24/17 20:34 95 Test 06/23/17 12:55 06/24/17 05:10 06/24/17 07:55 06/24/17 07:59 Lipase 45U/L (13-60) Total Bilirubin 0.2mg/dL (0.0-1.2) Aspartate Amino Transf (AST/SGOT) 21U/L (0-50) Alanine Aminotransferase (ALT/SGPT) 10U/L (0-32) Alkaline Phosphatase 147U/L (25-165) Total Protein 6.6g/dL (6.4-8.4) Albumin 3.2g/dL (3.4-5.0) Urine Legionella pneumophilia Ag Negative (Negative) Hold Urine Received (Received) Test 06/25/17 05:20 06/26/17 05:10 06/26/17 09:50 Band Neutrophils % 3% (1-5) Magnesium Level 1.5mg/dL (1.6-2.6) Procalcitonin 1.07ng/mL (0.00-0.08) White Blood Count 20.2th/mm3 (3.8-10.1) Red Blood Count 3.63mil/mm3 (3.90-5.20) Hemoglobin 9.1g/dL (12.0-15.6) Hematocrit 30.1% (35.0-46.0) Mean Corpuscular Volume 82.9fL (81-100) Mean Corpuscular Hemoglobin 25.1pg (27.0-35.0) Mean Corpuscular Hemoglobin Concent 30.2% (32.0-37.0) Red Cell Distribution Width 14.3% (12.3-15.4) Platelet Count 417bil/L (150-400) Neutrophils (%) (Auto) 85.1% (40-74) Lymphocytes (%) (Auto) 4.7% (14-46) Monocytes (%) (Auto) 9.8% (4-12) Eosinophils (%) (Auto) 0.1% (0-5) Basophils (%) (Auto) 0.1% (0-3) Prothrombin Time 12.0sec (8.1-12.5) Prothromb Time International Ratio 1.12ratio Activated Partial Thromboplast Time 39.2sec (22.8-33.0) Sodium Level 139mEq/L (134-144) Potassium Level 3.2mEq/L (3.5-5.2) Chloride Level 104mEq/L (97-108) Carbon Dioxide Level 19mmol/L (18-29) Blood Urea Nitrogen 11mg/dL (8-27) Creatinine 0.97mg/dL (0.57-1.00) Estimat Glomerular Filtration Rate 80mL/min (>59) Glucose Level 100mg/dL (60-99) Calcium Level 8.6mg/dL (8.5-10.1) Lactic Acid Level 1.2mmol/L (0.4-2.0) Discharge Medications Discharge Medications Aripiprazole (Abilify) 2 Mg Tablet 2 MG PO DAILY (Reported) Aspirin (Aspirin) 81 Mg Tablet 81 MG PO DAILY (Reported) Calcium Carbonate/Vitamin D3 (Calcium + Vitamin D Tablet) 1 Each Tablet 1 EACH PO BID (Reported) Cholecalciferol (Vitamin D3) (Vitamin D) 1,000 Unit Tablet 2,000 UNIT PO BID ( Reported) Clopidogrel Bisulfate (Plavix) 75 Mg Tablet 75 MG PO DAILY (Reported) Cranberry Extract (Cranberry) 200 Mg Capsule 200 MG PO DAILY (Reported) Duloxetine (Cymbalta) 60 Mg Capsule.dr 60 MG PO DAILY (Reported) Enalapril Maleate (Enalapril Maleate) 10 Mg Tablet 10 MG PO DAILY (Reported) Ferrous Sulfate (Iron) 325 Mg Capsule.er 325 MG PO DAILY (Reported) Gluc 2Kcl/Chondr/Rosa Hy/Hy AC (Glucosamine & Chondroitin Cap) 1 Each Capsule 1 EACH PO BID (Reported) Lactobacillus Acidophilus (Probiotic) 1 Each Capsule 1 EACH PO DAILY (Reported) Metoprolol Tartrate (Metoprolol Tartrate) 25 Mg Tablet 25 MG PO BID (Reported) Omeprazole (Omeprazole) 20 Mg Capsule.dr 20 MG PO DAILY (Reported) Pantoprazole DR (Pantoprazole DR) 40 Mg Tablet.dr 40 MG PO DAILY (Reported) Simvastatin (Simvastatin) 40 Mg Tablet 40 MG PO HS (Reported) Sucralfate (Carafate) 1 Gm Tablet 1 GM PO QID (Reported) Vancomycin (Vancomycin) 125 Mg Capsule 125 MG PO Q12 Prescribed by: DENYS PORTER MD As needed Acetaminophen (Acetaminophen) 500 Mg Capsule 500 MG PO Q6H PRN PRN For Pain ( Reported) Diazepam (Diazepam) 5 Mg Tablet 5 MG PO BID PRN PRN For Anxiety (Reported) Ranitidine (Zantac) 150 Mg Tablet 150 MG PO BID PRN PRN For Dyspepsia or Heartburn (Reported) oxyCODONE (oxyCODONE) 10 Mg Tablet 10 MG PO Q4-6HR PRN PRN For Pain (Reported) Additional med instructions Home meds being held Patient to be continued on zosyn, doxy and oral vanco due to concerns for cdiff , in addition to her pneumonia.. Followup Plan Discharge Diet: Other (NPO) Time spent 55 mins Denys Porter MD Jun 26, 2017 18:14
--- NOTE | 2017-06-26 18:29 | NUR ---
Report to Nadiya [facility] Patient report given to Nurse TOMY Mejias at [facility]. [facility] Patient family in room and both patient and family notified of open bed. Transportation being arranged.
--- NOTE | 2017-06-26 18:56 | PROG NOTE ---
[address] [address] PROGRESS NOTE PATIENT: EARLINE FLAHERTY : 1945 MR#: [id number] ADMIT: 06/23/2017 JOB ID: [id number] INFECTIOUS DISEASE FOLLOWUP: DATE: 06/26/2017 REASON FOR FOLLOWUP: Complex patient with possible C. diff and ongoing mesenteric ischemia. INTERVAL HISTORY: Recall that this is a complicated patient I saw in consult yesterday. There are questions about whether she may have had mandibular osteo, aspiration pneumonia, ongoing bowel ischemia, or recurrent C. diff. Over the past 24 hours, the patient notes that her diarrhea has worsened somewhat and she is now more convinced that she has recurrent C. diff. She does complain of increasing abdominal pain, which is especially severe on the right side as well. She denies any fevers or chills however, and states that she is not having any particular pain in her left mandible, nor is she having any significant cough, chest pain, or shortness of breath. She is breathing well without oxygen. Her abdomen now has worsened overnight and during the course of the day today there was an attempt to alleviate what was a very tight high-grade stenosis at the origin of the celiac axis. The arteriogram and selective angioplasty today was successful in that initial arteriogram showed a high-grade stenosis at the region of the celiac axis. Following the angioplasty, there was a decrease in the size of the stenosis but the interventional radiologist noted that this is basically what had happened during her last angioplasty in late April and that she had rapidly restenosed and so they strongly recommended she be considered for surgical intervention. As of this evening she is being prepped for a transfer to [facility] for additional care. PHYSICAL EXAMINATION: Reveals afebrile woman, temperature 36.2. Her only fever during this admission was 38.3 on June 24, pulse 64, respiratory rate 18, blood pressure 104/67. She is saturating well right now on room air. Her left mandible is nontender. She is awake and alert. Lungs are quite clear bilaterally. Cardiac tones without new murmur. The abdomen is slightly distended and quite tender especially across the lower abdomen and especially in the right lower quadrant. She does not have any significant skin rash. LABORATORY DATA: Labs include white count which has been fluctuating but basically right around 20,000 ever since admission four days ago. Her hematocrit is 30. Her platelet count stable at 417,000. Differential white count does have a left shift, 85% segs. Creatinine 0.97. Procalcitonin yesterday 1.07, not repeated today. Urine Legionella and pneumococcal antigens are negative. Blood cultures negative. MRSA screen negative. IMAGING: Includes the arteriogram from today which was previously discussed during which angioplasty was performed. The x-ray of the mandible I ordered yesterday has returned and it shows no bony erosions which is reassuring. Likewise the CT scan of the chest yesterday showed a small amount of right upper lobe ground-glass density as well as some scarring in both upper lobes. There were some small other densities present in both lungs and the radiologist thought this could be consistent but not necessarily diagnostic of active pneumonia. No pleural effusions or pneumothorax was seen. Also seen on the CT scans yesterday was bowel distention with wall thickening and pericolic fat stranding in the ascending colon. It was unclear if this represented colitis due to infection such as C. diff or ischemic bowel. IMPRESSION: This remains an extraordinarily complicated case. 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 The patient underwent angioplasty which seem to be successful in late April but then had restenosis for which she underwent repeat angioplasty with some success today. I agree completely with the need for a referral for definitive surgery to correct this. Whether her abdominal pain now is due to primarily the ischemic or possibly recurrence of the Clostridium difficile which occurred several weeks ago is unclear, but I would be inclined to think it is more likely ischemia. The patient however thinks it is Clostridium difficile and I am not opposed to increasing her Clostridium difficile therapy. It does not appear that the patient has any ongoing significant mandibular osteo and this is both a clinical and radiographic impression. The final part of the puzzle here is whether she may have some aspiration pneumonia. I have reviewed her CT scans of the chest and I am not terribly impressed by the degree of pulmonary infiltrate, though there is some degree of infiltrate especially at the right base but it is fairly diffuse and could easily all be atelectasis. RECOMMENDATIONS: 1. Stool for C. diff has been ordered. 2. Will increase the oral vancomycin to 125 four times a day which could be a full treatment dose rather than prophylactic dose that I was attempting yesterday. 3. What to do with her doxycycline and Zosyn for possible pneumonia is unclear to me, but in view of the fact she has an elevated procalcitonin, leukocytosis and her clinical status is a bit unsettled, I think it is reasonable to continue at least in the short run with those antibiotics, though I suspect they can be discontinued fairly soon. I have discussed this case with Dr. Porter, and he anticipates discharge in the near future but I have gone ahead and made the changes as described above in case she does not get out here in the next few hours.
--- NOTE | 2017-06-26 19:58 | NUR ---
Transfer to Patient transferred to Nadiya Graham at 1955 via ambulance. Vital signs stable at time of discharge. Patient had two IV's infusing, to be continued during transport. Patient alert and oriented. Administered 0.5mg IV Dilaudid prior to discharge. Telemetry disconnected. Nadiya Graham called as soon as patient left floor. Patient's took all belongings.
[2017-06-26] MEDS ORDERED: Vancomycin 125 mg Oral Capsule PO SCH (20:30)
== END 2017-06-26 19:54 | disposition short-term general hospital (02) | DRG 356 ==
LOC: SED 11:18 → OSC 16:48 → MPC 18:10
PROVIDERS: ADMIT Internal Medicine Infectious Disease; ATTEND Internal Medicine Infectious Disease
PROC: 04713ZZ Dilation of Celiac Artery, Percutaneous Approach (ICD-10-PCS; principal; 2017-06-26)
DX: I77.4 Celiac artery compression syndrome (principal); A41.9 Sepsis, unspecified organism; J18.1 Lobar pneumonia, unspecified organism; K55.069 Acute infarction of intestine, part and extent unspecified; Z87.891 Personal history of nicotine dependence; Z85.3 Personal history of malignant neoplasm of breast; I10 Essential (primary) hypertension; E87.6 Hypokalemia; Z92.3 Personal history of irradiation; I25.10 Atherosclerotic heart disease of native coronary artery without angina pectoris; Z79.02 Long term (current) use of antithrombotics/antiplatelets; F41.8 Other specified anxiety disorders; K21.9 Gastro-esophageal reflux disease without esophagitis